=== PATIENT | female | born 1935 | race Caucasian/White ===

== ENCOUNTER → 2016-02-09 | Outpatient (CLI) | payer OTHER, BC ==
[~2016-02-09] MED LIST: ADVIN25/60 INH; ALL180 PO; ASCO500C43 PO; ASCO500C5 PO; ASPCH81X PO; ASPEC81 PO; ATOR10TA82 PO; CALC-393 PO; CALC1CHW PO; CHOL1CAP57 PO; DILT240C57 PO; DVN80 PO; FEXO1TAB49 PO; FORMCAP PO; IBAN150T PO; LEVO50TA6 PO; LIOT5TAB PO; LIOT5TAB9 PO; LPT40 PO; LTMOPS OPR; MAGNESIUM PO; POLY1DRO2 OPR; POLYSOL4 OPL; POTA-327 PO; POTA10CA28 PO; PRLSR20 PO; QVRINH80; SENN-61 PO; VALA500T39 PO; VENL75CA PO; VNTHFA/IN INH; WARF5TAB7 PO
[2016-02-09 08:32] LABS: INR 2.4 (0.9-1.1); PROTHROMBIN TIME (PATIENT) 26.9 SECONDS (9.0-12.0)
== END | disposition home or self-care (01) ==
LOC: C.LABFOXMH 08:09
PROVIDERS: ATTEND Internal Medicine
DX: Z79.01 Long term (current) use of anticoagulants (principal)

== ENCOUNTER → 2016-02-15 | Outpatient (CLI) | payer OTHER, BC ==
[~2016-02-15] MED LIST changes: -ADVIN25/60 INH; -ASCO500C43 PO; -ASPCH81X PO; -ATOR10TA82 PO; -CALC-393 PO; -CHOL1CAP57 PO; -FEXO1TAB49 PO; -LIOT5TAB PO; -MAGNESIUM PO; -POLYSOL4 OPL; -POTA10CA28 PO; -VNTHFA/IN INH
--- NOTE | 2016-02-15 12:48 | DIAGNOSTIC IMAGING REPORT ---
LEFT THIRD FINGER 3 VIEWS CLINICAL HISTORY: Foreign body. Soft tissue infection. FINDINGS: 3 views of the left third finger are obtained. No prior studies are available for comparison at the time of dictation. The skeletal structures are osteopenic. No fracture is seen. 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 Erosion is noted involving the distal interphalangeal joint. The third metacarpophalangeal joint is well-maintained. Advanced arthritic change is present at the partially imaged first carpometacarpal joint. There is mild soft tissue edema present in the distal aspect of the third finger. No radiodense foreign body or subcutaneous gas is seen. A ring is noted on the fourth finger. IMPRESSION: 1. Soft tissue edema is present in the distal third finger. No radiodense foreign body is identified. 2. No fracture is seen. 3. Osteopenia and arthritic change as above. Electronically signed by: Diego Hughes M.D. 02/15/2016 12:46 PM Dictated Date/Time: 02/15/2016 12:44 PM
== END | disposition home or self-care (01) ==
LOC: C.RAD1850 11:52
PROVIDERS: ATTEND Dermatology
DX: S60.459A Superficial foreign body of unspecified finger, initial encounter (principal); X58.XXXA Exposure to other specified factors, initial encounter; M79.9 Soft tissue disorder, unspecified; M85.842 Other specified disorders of bone density and structure, left hand; M19.042 Primary osteoarthritis, left hand

== ENCOUNTER → 2016-03-07 | Outpatient (CLI) | payer OTHER, BC ==
[2016-03-07 08:40] LABS: INR 1.8 (0.9-1.1); PROTHROMBIN TIME (PATIENT) 19.3 SECONDS (9.0-12.0)
== END | disposition home or self-care (01) ==
LOC: C.LABFOXMH 08:18
PROVIDERS: ATTEND Internal Medicine
DX: Z51.81 Encounter for therapeutic drug level monitoring (principal); Z79.01 Long term (current) use of anticoagulants

== ENCOUNTER → 2016-03-21 | Outpatient (CLI) | payer OTHER, BC ==
[2016-03-21 10:27] LABS: INR 2.5 (0.9-1.1); PROTHROMBIN TIME (PATIENT) 27.9 SECONDS (9.0-12.0)
== END | disposition home or self-care (01) ==
LOC: C.LABFOXMH 09:01
PROVIDERS: ATTEND Internal Medicine
DX: Z51.81 Encounter for therapeutic drug level monitoring (principal); Z79.01 Long term (current) use of anticoagulants

== ENCOUNTER → 2016-04-19 | Outpatient (CLI) | payer OTHER, BC ==
[2016-04-19 09:48] LABS: INR 1.8 (0.9-1.1); PROTHROMBIN TIME (PATIENT) 19.6 SECONDS (9.0-12.0)
== END | disposition home or self-care (01) ==
LOC: C.LABFOXMH 09:19
PROVIDERS: ATTEND Nurse Practitioner Family
DX: Z51.81 Encounter for therapeutic drug level monitoring (principal); Z79.01 Long term (current) use of anticoagulants

== ENCOUNTER → 2016-05-02 | Outpatient (CLI) | payer OTHER, BC ==
[2016-05-02 09:53] LABS: INR 2.9 (0.9-1.1)
== END | disposition home or self-care (01) ==
LOC: C.LABFOXMH 09:00
PROVIDERS: ATTEND Nurse Practitioner Family
DX: Z79.01 Long term (current) use of anticoagulants (principal)

== ENCOUNTER → 2016-05-16 | Outpatient (CLI) | payer OTHER, BC ==
[2016-05-16 08:29] LABS: BLOOD UREA NITROGEN 14 mg/dl (7-18); BUN/CREATININE RATIO 17.4 (10-20); CALCIUM 8.5 mg/dl (8.5-10.1); CARBON DIOXIDE 32 mmol/L (21-32); CHLORIDE 103 mmol/L (98-107); GLUCOSE 75 mg/dl (70-99); POTASSIUM 3.6 mmol/L (3.5-5.1); SODIUM 140 mmol/L (136-145)
[2016-05-16 08:32] LABS: CHOLESTEROL 190 mg/dl (0-200); HDL CHOLESTEROL 96 mg/dl; LDL CHOLESTEROL CALCULATED 87 mg/dl; TRIGLYCERIDES 37 mg/dl (0-150); VERY LOW DENSITY LIPOPROT CALC 7 mg/dl
== END | disposition home or self-care (01) ==
LOC: C.LABFOXMH 07:46
PROVIDERS: ATTEND Internal Medicine
DX: E78.00 Pure hypercholesterolemia, unspecified (principal)

== ENCOUNTER → 2016-05-30 | Outpatient (CLI) | payer OTHER, BC ==
[2016-05-30 09:45] LABS: INR 2.9 (0.9-1.1)
== END | disposition home or self-care (01) ==
LOC: C.LABFOXMH 09:08
PROVIDERS: ATTEND Internal Medicine
DX: Z51.81 Encounter for therapeutic drug level monitoring (principal); Z79.01 Long term (current) use of anticoagulants; E03.9 Hypothyroidism, unspecified

== ENCOUNTER → 2016-06-27 | Outpatient (CLI) | payer OTHER, BC ==
[2016-06-27 11:12] LABS: INR 3.5 (0.9-1.1); PROTHROMBIN TIME (PATIENT) 39.5 SECONDS (9.0-12.0)
== END | disposition home or self-care (01) ==
LOC: C.LABFOXMH 09:50
PROVIDERS: ATTEND Internal Medicine
DX: Z51.81 Encounter for therapeutic drug level monitoring (principal); Z79.01 Long term (current) use of anticoagulants; R06.00 Dyspnea, unspecified

== ENCOUNTER → 2016-07-11 | Outpatient (CLI) | payer OTHER, BC ==
[2016-07-11 08:18] LABS: INR 3.1 (0.9-1.1); PROTHROMBIN TIME (PATIENT) 34.8 SECONDS (9.0-12.0)
== END | disposition home or self-care (01) ==
LOC: C.LABFOXMH 07:54
PROVIDERS: ATTEND Internal Medicine
DX: Z79.01 Long term (current) use of anticoagulants (principal)

== ENCOUNTER → 2016-08-01 | Outpatient (CLI) | payer OTHER, BC ==
[2016-08-01 11:12] LABS: PROTHROMBIN TIME (PATIENT) 33.4 SECONDS (9.0-12.0)
== END | disposition home or self-care (01) ==
LOC: C.LABFOXMH 09:11
PROVIDERS: ATTEND Internal Medicine
DX: Z51.81 Encounter for therapeutic drug level monitoring (principal); Z79.01 Long term (current) use of anticoagulants

== ENCOUNTER → 2016-08-22 | Outpatient (CLI) | payer OTHER, BC ==
[2016-08-22 08:50] LABS: INR 2.9 (0.9-1.1); PROTHROMBIN TIME (PATIENT) 31.9 SECONDS (9.0-12.0)
== END ==
LOC: C.LABFOXMH 08:11
PROVIDERS: ATTEND Internal Medicine
DX: Z79.01 Long term (current) use of anticoagulants (principal)

== ENCOUNTER → 2016-09-04 | Outpatient (CLI) | payer OTHER, BC ==
[2016-09-04 11:15] LABS: PROTHROMBIN TIME (PATIENT) 10.7 SECONDS (9.0-12.0)
== END | disposition home or self-care (01) ==
LOC: C.LABFOXMH 10:01
PROVIDERS: ATTEND Nurse Practitioner Family
DX: Z51.81 Encounter for therapeutic drug level monitoring (principal); Z79.01 Long term (current) use of anticoagulants; L98.9 Disorder of the skin and subcutaneous tissue, unspecified

== ENCOUNTER → 2016-09-04 | Outpatient (CLI) | payer OTHER, BC | END | disposition home or self-care (01) | LOC: C.PATHSPEC 13:24 | PROVIDERS: ATTEND Plastic Surgery | DX: L98.9 Disorder of the skin and subcutaneous tissue, unspecified (principal) ==

== ENCOUNTER → 2016-09-07 | Outpatient (CLI) | payer OTHER, BC ==
[2016-09-07 09:02] LABS: INR 1.1 (0.9-1.1); PROTHROMBIN TIME (PATIENT) 12.1 SECONDS (9.0-12.0)
== END | disposition home or self-care (01) ==
LOC: C.LABFOXMH 08:30
PROVIDERS: ATTEND Nurse Practitioner Family
DX: Z51.81 Encounter for therapeutic drug level monitoring (principal); Z79.01 Long term (current) use of anticoagulants

== ENCOUNTER → 2016-09-14 | Outpatient (CLI) | payer OTHER, BC ==
[2016-09-14 09:50] LABS: PROTHROMBIN TIME (PATIENT) 21.6 SECONDS (9.0-12.0)
== END | disposition home or self-care (01) ==
LOC: C.LABFOXMH 09:07
PROVIDERS: ATTEND Nurse Practitioner Family
DX: Z51.81 Encounter for therapeutic drug level monitoring (principal); Z79.01 Long term (current) use of anticoagulants

== ENCOUNTER → 2016-09-26 | Outpatient (CLI) | payer OTHER, BC ==
[2016-09-26 10:00] LABS: INR 2.4 (0.9-1.1); PROTHROMBIN TIME (PATIENT) 26.6 SECONDS (9.0-12.0)
== END ==
LOC: C.LABFOXMH 09:16
PROVIDERS: ATTEND Nurse Practitioner Family
DX: Z79.01 Long term (current) use of anticoagulants (principal)

== ENCOUNTER → 2016-10-10 | Outpatient (CLI) | payer OTHER, BC ==
[2016-10-10 10:05] LABS: INR 2.3 (0.9-1.1); PROTHROMBIN TIME (PATIENT) 25.9 SECONDS (9.0-12.0)
== END | disposition home or self-care (01) ==
LOC: C.LABFOXMH 09:27
PROVIDERS: ATTEND Nurse Practitioner Family
DX: Z51.81 Encounter for therapeutic drug level monitoring (principal); Z79.01 Long term (current) use of anticoagulants

== ENCOUNTER → 2016-10-27 | Outpatient (CLI) | payer OTHER, BC ==
[2016-10-27 12:52] LABS: BLOOD UREA NITROGEN 15 mg/dl (7-18); BUN/CREATININE RATIO 18.8 (10-20); CALCIUM 9.2 mg/dl (8.5-10.1); CARBON DIOXIDE 28 mmol/L (21-32); CHLORIDE 106 mmol/L (98-107); CREATININE 0.82 mg/dl (0.60-1.20); GLUCOSE 80 mg/dl (70-99); POTASSIUM 4.2 mmol/L (3.5-5.1); SODIUM 141 mmol/L (136-145)
== END ==
LOC: C.LABFOXMH 12:21
PROVIDERS: ATTEND Internal Medicine
DX: I10 Essential (primary) hypertension (principal)

== ENCOUNTER → 2016-11-02 | Outpatient (CLI) | payer OTHER, BC ==
[~2016-11-02] MED LIST changes: +GADAVIST IV PRN
--- NOTE | 2016-11-02 12:48 | DIAGNOSTIC IMAGING REPORT ---
CERVICAL SPINE COMBO HISTORY: 81 years-old Female HX CERVICAL SPINE SURGERY,R HAND TRICEP WEAKNESS acute right upper and lower extremity weakness with neck pain. History of prior anterior cervical fusion. 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 Postsurgical changes are seen compatible with prior anterior fusion and discectomy at the C5-C6 and C6-C7 levels. There appears to be complete bony fusion of the vertebral bodies at this level with fusion of the left facets noted at C4-C5. No focal bone marrow edema or fracture identified. 3 mm linear area of increased T2 signal within the anterior cord at C5-C6 appears unchanged suggesting myelomalacia. Signal within the cord is otherwise within normal limits. No abnormal enhancement is identified. C2-C3: Uncovertebral spurring and moderate facet arthrosis causes mild central canal, mild right and mild to moderate left foraminal narrowing. Unchanged. C3-C4: 2 mm anterolisthesis C3 on C4, unchanged likely secondary to underlying moderate facet arthropathy. Uncovertebral spurring is noted with broad-based posterior disc bulge. There is moderate central canal and moderate bilateral foraminal stenosis redemonstrated at this level, unchanged. C4-C5: 3 mm anterolisthesis is unchanged. Mild intervertebral disc space narrowing with central posterior disc osteophyte complex and mild to moderate facet arthropathy. There is effacement of the ventral thecal sac without significant central canal narrowing. There is mild left foraminal stenosis. Right foramen is patent. Unchanged. C5-C6: Fusion at this level with posterior osteophytic spurring is again noted causing mild central canal narrowing. Foramen appear patent. No change. C6-C7: Fusion at this level with posterior osteophytic spurring causing effacement of the ventral thecal sac without significant central canal narrowing, unchanged. There is mild bilateral foraminal narrowing. C7-T1: Mild intervertebral disc space narrowing with small posterior disc ossify complex and mild facet arthropathy. No significant central canal or foraminal narrowing. Unchanged. IMPRESSION: 1. Post surgical changes of prior anterior fusion at C5-C6 and C6-C7. Focal 3 mm area of increased signal within the anterior cord at C5-C6 is unchanged suggesting mild myelomalacia. 2. Unchanged moderate central canal stenosis at C3-C4 secondary to disc disease and facet arthropathy. 3. No acute fracture, focal bone marrow edema or abnormal enhancement. 4. Additional facet arthropathy and discogenic degenerative changes as above. Unchanged from study dated 06/24/2014. 5. Remote right cerebellar hemisphere infarction with background cerebral atrophy noted. The above report was generated using voice recognition software. It may contain grammatical, syntax or spelling errors. Electronically signed by: Harry Garcia M.D. 11/02/2016 12:47 PM Dictated Date/Time: 11/02/2016 11:37 AM
== END | disposition home or self-care (01) ==
LOC: C.MRI 09:46
PROVIDERS: ATTEND Internal Medicine
DX: M62.81 Muscle weakness (generalized) (principal); Z98.890 Other specified postprocedural states; M48.02 Spinal stenosis, cervical region; M46.92 Unspecified inflammatory spondylopathy, cervical region; I63.9 Cerebral infarction, unspecified; G31.9 Degenerative disease of nervous system, unspecified

== ENCOUNTER → 2016-11-07 | Outpatient (CLI) | payer OTHER, BC ==
[~2016-11-07] MED LIST changes: -GADAVIST IV PRN
[2016-11-07 10:01] LABS: INR 2.5 (0.9-1.1); PROTHROMBIN TIME (PATIENT) 27.5 SECONDS (9.0-12.0)
== END ==
LOC: C.LABFOXMH 09:17
PROVIDERS: ATTEND Nurse Practitioner Family
DX: Z51.81 Encounter for therapeutic drug level monitoring (principal); Z79.01 Long term (current) use of anticoagulants

== ENCOUNTER → 2017-01-02 | Outpatient (CLI) | payer OTHER, BC ==
[2017-01-02 09:26] LABS: INR 3.5 (0.9-1.1); PROTHROMBIN TIME (PATIENT) 39.4 SECONDS (9.0-12.0)
== END | disposition home or self-care (01) ==
LOC: C.LABFOXMH 08:45
PROVIDERS: ATTEND Internal Medicine
DX: Z79.01 Long term (current) use of anticoagulants (principal)

== ENCOUNTER → 2017-01-08 | Outpatient (CLI) | payer OTHER, BC ==
--- NOTE | 2017-01-08 10:42 | DIAGNOSTIC IMAGING REPORT ---
MRI OF THE CHEST/BRACHIAL PLEXUS WITHOUT CONTRAST CLINICAL HISTORY: Right arm pain and weakness, attention brachial plexus. COMPARISON STUDY: MRI of the cervical spine November 02, 2016. TECHNIQUE: Utilizing a 1.5 Ginger magnet, multiplanar, multiecho imaging through the lower neck and mid to upper chest was performed without IV contrast. FINDINGS: Postoperative findings within the cervical spine consistent with C5-C6 and C6-C7 anterior discectomies and fusion are better depicted on MRI of November 02, 2016. Reversal of the normal cervical lordosis is unchanged. No suspicious marrow replacement is present. This exam is mildly compromised given lack of postcontrast imaging. However, no mass or other abnormalities are identified along the course of the right brachial plexus. There is no upper thoracic or lower cervical mass or enlarged lymph node. Lung apices are unremarkable by MRI. There is no cervical lymphadenopathy. IMPRESSION: 1. No mass or other abnormality along the course of the right brachial plexus on unenhanced MRI. 2. Status post C5-C6 and C6-C7 anterior cervical spine discectomy and fusion. Postoperative findings better depicted on MRI of November 02, 2016. Electronically signed by: Deepak Urias M.D. 01/08/2017 10:41 AM Dictated Date/Time: 01/08/2017 10:34 AM
== END | disposition home or self-care (01) ==
LOC: C.MRI 08:51
PROVIDERS: ATTEND Internal Medicine
DX: M62.81 Muscle weakness (generalized) (principal); M79.621 Pain in right upper arm; M43.22 Fusion of spine, cervical region

== ENCOUNTER → 2017-01-12 | Outpatient (CLI) | payer OTHER, BC ==
[~2017-01-12] MED LIST changes: +ADVIN25/60 INH; +ASCO500C43 PO; +ASPCH81X PO; +ATOR10TA82 PO; +CALC-393 PO; +CHOL1CAP57 PO; +FEXO1TAB49 PO; +LIOT5TAB PO; +MAGNESIUM PO; +POLYSOL4 OPL; +POTA10CA28 PO; +VNTHFA/IN INH
[2017-01-12 10:00] LABS: MEAN CORPUSCULAR HEMOGLOBIN 29.5 pg (25-34); MEAN CORPUSCULAR HGB CONC 33.1 g/dl (32-36); MEAN PLATELET VOLUME 11.5 fL (7.4-10.4); PLATELET COUNT 249 K/uL (130-400); RED BLOOD COUNT 4.38 M/uL (4.2-5.4); WHITE BLOOD COUNT 6.08 K/uL (4.8-10.8)
[2017-01-12 10:06] LABS: INR 2.5 (0.9-1.1); PROTHROMBIN TIME (PATIENT) 25.5 SECONDS (9.0-12.0)
[2017-01-12 10:10] LABS: ALT/SGPT 36 U/L (12-78); BLOOD UREA NITROGEN 18 mg/dl (7-18); BUN/CREATININE RATIO 18.9 (10-20); CALCIUM 8.9 mg/dl (8.5-10.1); CARBON DIOXIDE 28 mmol/L (21-32); CHLORIDE 103 mmol/L (98-107); CREATININE 0.97 mg/dl (0.60-1.20); GLUCOSE 106 mg/dl (70-99); POTASSIUM 3.6 mmol/L (3.5-5.1); SODIUM 138 mmol/L (136-145)
[2017-01-12 10:20] LABS: ALB/GLOB RATIO 1.1 (0.9-2); ALKALINE PHOSPHATASE 148 U/L (45-117); AST/SGOT 28 U/L (15-37)
== END | disposition home or self-care (01) ==
LOC: C.LABFOXMH 09:34
PROVIDERS: ATTEND Internal Medicine
DX: R63.4 Abnormal weight loss (principal)

== ENCOUNTER → 2017-01-16 | Outpatient (CLI) | payer OTHER, BC ==
[2017-01-16 08:35] LABS: INR 2.2 (0.9-1.1); PROTHROMBIN TIME (PATIENT) 22.5 SECONDS (9.0-12.0)
== END | disposition home or self-care (01) ==
LOC: C.LABFOXMH 07:47
PROVIDERS: ATTEND Internal Medicine
DX: Z79.01 Long term (current) use of anticoagulants (principal)

== ENCOUNTER → 2017-01-22 | Day surgery (SDC) | payer OTHER, BC ==
[2017-01-16 12:08] VITALS: BMI 16.0
[~2017-01-22] VITALS: Ht 160 cm; Wt 42.3 kg
[~2017-01-22] MED LIST changes: -ALL180 PO; -ASCO500C5 PO; -ASPEC81 PO; -CALC1CHW PO; -DVN80 PO; -FORMCAP PO; -IBAN150T PO; +LIDOCAINE HCL 2% 2 ML VIAL (20MG/ML) ONE; -LIOT5TAB9 PO; -LPT40 PO; +ONDANSETRON INJ 2 MG/ML 2 ML VIAL ONE; -POLY1DRO2 OPR; -POTA-327 PO; +PROPOFOL IV EMULSION 10 MG/ML 20 ML VIAL IV ONE; -QVRINH80; +SODIUM CHLORIDE 0.9% 500ML 500 ML IV ONE
[2017-01-22 08:01] VITALS: Ht 160 cm; Wt 42.3 kg
--- NOTE | 2017-01-22 08:17 | Endo History and Physical ---
History & Physical Date of Service: Jan 22, 2017. Chief Complaint: Referring Physician: History of Present Illness patient with Hx of dysphagia here for EGD. Past Medical History Asthma, Thyroid Disease, CVA/TIA, Other Past Surgical History Hx Cardiac Surgery: No Hx Internal Defibrillator: No Hx Pacemaker: No Hx Abdominal Surgery: No Hx of Implantable Prosthesis: No Hx Post-Op Nausea and Vomiting: No Hx Cancer Surgery: No Hx Thoracic Surgery: No Hx Orthopedic: Yes (CERVICAL FUSION) Hx Urinary Tract Surgery: No Family History Colon CA Social History Smoking Status: Never Smoker Hx Substance Use: No Hx Alcohol Use: No Allergies Coded Allergies: Codeine (Verified Allergy, Unknown, VOMITTING COFFEE GROUNDS, 01/22/17) Penicillins (Verified Allergy, Unknown, RASH, 01/22/17) Sulfa Antibiotics (Verified Allergy, Unknown, RASH, 01/22/17) Current Medications Reported Home Medications Medications Dose Route/Sig Max Daily Dose Days Date Category Dose Instructions Systane (Polyethylene Glycol-Propylene) 1 Lee Ann Lee Ann 1 Drops OPL HS 01/16/17 Reported Prilosec (Omeprazole) 20 Mg Capcr 20 Mg PO BID 01/16/17 Reported [Magnesium] 235 Mg PO QAM 01/16/17 Reported Vitamin C 500 mg (Ascorbic Acid) 1 Chw Chw 1 Dose PO QAM 01/16/17 Reported Calcium (Calcium Carbonate) 600 Mg Tab 1 Tab PO QAM 01/16/17 Reported Vitamin D3 (Cholecalciferol) 1,000 Unit Cap 1 Cap PO QAM 01/16/17 Reported Micro-K Ext Rel (Potassium Chloride) 10 Meq Capcr 10 Meq PO QAM 01/16/17 Reported Lipitor (Atorvastatin Calcium) 10 Mg Tab 10 Mg PO QAM 01/16/17 Reported Aspirin Chewable (Aspirin) 81 Mg Chew 81 Mg PO Q2D 01/16/17 Reported Trixie Allergy (Fexofenadine Hcl) 180 Mg Tab 1 Tab PO QAM 01/16/17 Reported Ventolin Hfa (Albuterol) 200 Puffs/40108 Mcg Aers 2-4 Puffs INH Q6H PRN 01/16/17 Reported Advair Diskus 250/50 60 Dose (Fluticasone Prop/Salmeterol) 1 Ea Aerp 1 Puff INH BID 01/16/17 Reported Cytomel (Liothyronine Sodium) 5 Mcg Tab 5 Mcg PO QAM 01/16/17 Reported Levothyroxine Sodium 50 Mcg Tab 1 Tab PO 6XWK 01/16/17 Reported Cardizem Cd (Diltiazem Hcl Coated Beads) 240 Mg Cap 240 Mg PO QAM 01/16/17 Reported Jantoven (Warfarin Sodium) 5 Mg Tab 5 Mg PO QPM 01/23/15 Reported Lotemax (Loteprednol Etabonate) 75 Drops/5 Ml Susp 1 Drop OPR HS 06/25/14 Reported Senokot (Senna) 8.6 Mg Tab 1 Tab PO QPM 06/25/14 Reported Effexor Xr (Venlafaxine Hcl) 75 Mg Cap 75 Mg PO QAM 06/25/14 Reported Valtrex (Valacyclovir Hcl) 500 Mg Tab 500 Mg PO QAM 06/25/14 Reported NO ACTIVE SHINGLES CURRENTLY Vital Signs Weight (Kilograms): 42.27 Height (Feet): 5 Height (Inches): 3 Physical Exam General Appearance: no apparent distress Respiratory/Chest: Auscultation: breath sounds normal Cardiovascular: Heart Auscultation: RRR Abdomen: Inspection & Palpation: soft, non-distended Assessment and Plan Patient agreed for EGD with possible dilation. I explained the risk and benefit and she consented. She stopped Coumadin and was bridged with Lovenox.
[2017-01-22 08:21] VITALS: TEMP 36.5
--- NOTE | 2017-01-22 09:07 | GI REPORT ---
Procedure Date: 01/22/2017 8:31 AM Procedure: Upper GI endoscopy Indications: Dysphagia Medicines: Monitored Anesthesia Care Complications: No immediate complications. Estimated Blood Loss: Estimated blood loss: none. Procedure: Pre-Anesthesia Assessment: - Prior to the procedure, a History and Physical was performed, and patient medications and allergies were reviewed. The patient is competent. The risks and benefits of the procedure and the sedation options and risks were discussed with the patient. All questions were answered and informed consent was obtained. Patient identification and proposed procedure were verified by the physician and the nurse in the procedure room. Mental Status Examination: alert and oriented. Airway Examination: normal oropharyngeal airway and neck mobility. Respiratory Examination: clear to auscultation. CV Examination: normal. ASA Grade Assessment: III - A patient with severe systemic disease. After reviewing the risks and benefits, the patient was deemed in satisfactory condition to undergo the procedure. The anesthesia plan was to use monitored anesthesia care (MAC). Immediately prior to administration of medications, the patient was re-assessed for adequacy to receive sedatives. The heart rate, respiratory rate, oxygen saturations, blood pressure, adequacy of pulmonary ventilation, and response to care were monitored throughout the procedure. The physical status of the patient was re-assessed after the procedure. After obtaining informed consent, the endoscope was passed under direct vision. Throughout the procedure, the patient's blood pressure, pulse, and oxygen saturations were monitored continuously. The scope was introduced through the mouth, and advanced to the second part of duodenum. The upper GI endoscopy was accomplished without difficulty. The patient tolerated the procedure well. 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 The examined esophagus was otherwise normal. A guidewire was placed and the scope was withdrawn. Dilation was performed with a Savary dilator with minimal resistance at 15 mm, 16 mm, 17 mm and 18 mm. The entire examined stomach had no gross lesions. The duodenal bulb and 2nd part of the duodenum were normal. Impression: - Ectopic gastric mucosa in the upper third of the esophagus. - Normal esophagus. Dilated to 18 mm (54 Fr). - Normal stomach. - Normal duodenal bulb and 2nd part of the duodenum. - No specimens collected. Recommendation: - Discharge patient to home. - Continue present medications. - Resume Coumadin (warfarin) at prior dose today. - Follow an antireflux regimen. - Continue PPI as needed. - Consider esophageal manometry if dysphagia persists. - Return to referring physician. Cecil Oviedo MD 01/22/2017 9:07:03 AM This report has been signed electronically. Note Initiated On: 01/22/2017 8:31 AM I attest to the content of the Intraoperative Record and orders documented therein, exceptions below
--- NOTE | 2017-01-22 09:09 | Discharge Instructions ---
Endoscopy Patient Instructions Date / Procedure(s) Performed Jan 22, 2017. EGD Allergy Information Coded Allergies: Codeine (Verified Allergy, Unknown, VOMITTING COFFEE GROUNDS, 01/22/17) Penicillins (Verified Allergy, Unknown, RASH, 01/22/17) Sulfa Antibiotics (Verified Allergy, Unknown, RASH, 01/22/17) Discharge Date / Findings Jan 22, 2017. Normal esophagus, stomach and duodenum. Esophageal dilation performed up to 18mm. Medication Instructions Stopped Medication(s): STOPPED COUMADIN AND ASA. BRIDGED WITH LOVENOX Restart Stopped Medication(s): Can resume Coumadin tonight. Follow up in Coumadin clinic. Reported Home Medications Medications Dose Route/Sig Max Daily Dose Days Date Category Systane (Polyethylene Glycol-Propylene) 1 Lee Ann Lee Ann 1 Drops OPL HS 01/16/17 Reported Prilosec (Omeprazole) 20 Mg Capcr 20 Mg PO BID 01/16/17 Reported [Magnesium] 235 Mg PO QAM 01/16/17 Reported Vitamin C 500 mg (Ascorbic Acid) 1 Chw Chw 1 Dose PO QAM 01/16/17 Reported Calcium (Calcium Carbonate) 600 Mg Tab 1 Tab PO QAM 01/16/17 Reported Vitamin D3 (Cholecalciferol) 1,000 Unit Cap 1 Cap PO QAM 01/16/17 Reported Micro-K Ext Rel (Potassium Chloride) 10 Meq Capcr 10 Meq PO QAM 01/16/17 Reported Lipitor (Atorvastatin Calcium) 10 Mg Tab 10 Mg PO QAM 01/16/17 Reported Aspirin Chewable (Aspirin) 81 Mg Chew 81 Mg PO Q2D 01/16/17 Reported Trixie Allergy (Fexofenadine Hcl) 180 Mg Tab 1 Tab PO QAM 01/16/17 Reported Ventolin Hfa (Albuterol) 200 Puffs/15636 Mcg Aers 2-4 Puffs INH Q6H PRN 01/16/17 Reported Advair Diskus 250/50 60 Dose (Fluticasone Prop/Salmeterol) 1 Ea Aerp 1 Puff INH BID 01/16/17 Reported Cytomel (Liothyronine Sodium) 5 Mcg Tab 5 Mcg PO QAM 01/16/17 Reported Levothyroxine Sodium 50 Mcg Tab 1 Tab PO 6XWK 01/16/17 Reported Cardizem Cd (Diltiazem Hcl Coated Beads) 240 Mg Cap 240 Mg PO QAM 01/16/17 Reported Jantoven (Warfarin Sodium) 5 Mg Tab 5 Mg PO QPM 01/23/15 Reported Lotemax (Loteprednol Etabonate) 75 Drops/5 Ml Susp 1 Drop OPR HS 06/25/14 Reported Senokot (Senna) 8.6 Mg Tab 1 Tab PO QPM 06/25/14 Reported Effexor Xr (Venlafaxine Hcl) 75 Mg Cap 75 Mg PO QAM 06/25/14 Reported Provider Instructions Activity Restrictions - No exercising or heavy lifting for 24 hours. - Do not drink alcohol the day of the procedure. - Do not drive a car or operate machinery until the day after the procedure. - Do not make any important decisions or sign important papers in 24 hours after the procedure. Following Day: - Return to full activity which may include returning to work/school. Diet Start your diet with liquids and light foods (jello, soup, juice, toast). Then eat your usual diet if not nauseated. Treatment For Common After Affects For mild abdominal pain, bloating, or excessive gas: - Rest - Eat lightly - Lie on right side Follow-Up Information Continue PPI. Antireflux measures. Follow-up with DR. GILLIAM as scheduled Anesthesia Information What You Should Know You have had a procedure that required some medicine to reduce anxiety and discomfort. This treatment is called moderate sedation. After receiving the treatment, you may be sleepy, but you will be able to breathe on your own. The effects of the treatment may last for several hours. Follow these instructions along with Activity/Diet recommendations noted above: * Do NOT do anything where dizziness or clumsiness would be dangerous. * Rest quietly at home today, then you can be up and about tomorrow. * Have a responsible person stay with you the rest of today. * You may have had an I.V. today. If so, you may take the dressing off later today. Recommendations Call your doctor if: * Trouble breathing * Continuous vomiting for more than 24 hours * Temperature above 101 degrees * Severe abdominal pain or bloating * Pain not relieved by pain medicine ordered * There is increased drainage or redness from any incision * A large amount of rectal bleeding greater than 2-3 tablespoons. (If you had a polyp/s removed or have hemorrhoids, a small amount of blood - from the rectum is to be expected.) * You have any unanswered questions or concerns. IN THE EVENT OF A SERIOUS EMERGENCY, GO TO THE NEAREST EMERGENCY ROOM Your discharge instructions were prepared by provider Cecil Oviedo. Patient Instructions Signature Page Ellie Siddiqui Patient (or Guardian) Signature/Date: I have read and understand the instructions given to me by my caregivers. Caregiver/RN/Doctor Signature/Date: The above-named patient and/or guardian has received patient instructions on this date. + Original Patient Signature Page (only) stays with chart. Please make copy for patient.
--- NOTE | 2017-01-22 09:32 | Anesthesiology Progress Note ---
Anesthesia Post Op Note Date & Time Jan 22, 2017 at 09:32 Vital Signs Pain Intensity: 0 Vital Signs Past 12 Hours Date Time Temp Pulse Resp B/P (MAP) Pulse Ox O2 Delivery O2 Flow Rate FiO2 01/22/17 09:18 63 18 161/65 (97) 99 Room Air 01/22/17 09:03 70 16 174/69 (104) 98 Room Air 01/22/17 08:21 36.5 58 18 149/61 (90) 100 Room Air Notes Mental Status: alert / awake / arousable, participated in evaluation Pt Amnestic to Procedure: Yes Nausea / Vomiting: adequately controlled Pain: adequately controlled Airway Patency, RR, SpO2: stable & adequate BP & HR: stable & adequate Hydration State: stable & adequate Anesthetic Complications: no major complications apparent
[2017-01-22 09:33] VITALS: BP 154/75; PULSE 60; O2SAT 100
== END | disposition home or self-care (01) ==
LOC: C.GI 07:43
PROVIDERS: ATTEND Student in an Organized Health Care Education/Training Program
DX: R13.10 Dysphagia, unspecified (principal); J44.9 Chronic obstructive pulmonary disease, unspecified; I10 Essential (primary) hypertension; E78.5 Hyperlipidemia, unspecified; I48.91 Unspecified atrial fibrillation; K21.9 Gastro-esophageal reflux disease without esophagitis; M19.90 Unspecified osteoarthritis, unspecified site; R39.15 Urgency of urination; Z80.0 Family history of malignant neoplasm of digestive organs; Z79.82 Long term (current) use of aspirin; Z88.2 Allergy status to sulfonamides; Z86.73 Personal history of transient ischemic attack (TIA), and cerebral infarction without residual deficits; Z88.0 Allergy status to penicillin

== ENCOUNTER → 2017-01-26 | Outpatient (CLI) | payer OTHER, BC ==
[~2017-01-26] MED LIST changes: -LIDOCAINE HCL 2% 2 ML VIAL (20MG/ML) ONE; -ONDANSETRON INJ 2 MG/ML 2 ML VIAL ONE; -PROPOFOL IV EMULSION 10 MG/ML 20 ML VIAL IV ONE; -SODIUM CHLORIDE 0.9% 500ML 500 ML IV ONE
[2017-01-26 09:04] LABS: INR 1.9 (0.9-1.1); PROTHROMBIN TIME (PATIENT) 19.4 SECONDS (9.0-12.0)
[2017-02-01 02:43] LABS: ALK PHOS ISO-INTESTINE 18 % (1-24); ALK PHOS ISO-LIVER 55 % (25-69); ALK PHOS ISO-PLACENTAL 0 % (<=0); ALK PHOS MACROHEPATIC 0 % (<=0); ALP (ALK P'TASE) 112 U/L (33-130)
== END | disposition home or self-care (01) ==
LOC: C.LABFOXMH 08:19
PROVIDERS: ATTEND Internal Medicine
DX: Z79.01 Long term (current) use of anticoagulants (principal); R94.5 Abnormal results of liver function studies

== ENCOUNTER → 2017-02-06 | Outpatient (CLI) | payer OTHER, BC ==
[~2017-02-06] MED LIST changes: -VALA500T39 PO; -VENL75CA PO; +VENL75CA88 PO
[2017-02-06 09:17] LABS: INR 1.8 (0.9-1.1)
== END | disposition home or self-care (01) ==
LOC: C.LABFOXMH 08:49
PROVIDERS: ATTEND Nurse Practitioner Family
DX: Z79.01 Long term (current) use of anticoagulants (principal)

== ENCOUNTER → 2017-02-09 | Outpatient (CLI) | payer OTHER, BC ==
[2017-02-09 12:21] LABS: INFLUENZA B ANTIGEN Neg for Influ B (NEG)
== END ==
LOC: C.LABFOXMH 11:35
PROVIDERS: ATTEND Nurse Practitioner Family
DX: R05 Cough (principal)

== ENCOUNTER → 2017-02-22 | Outpatient (CLI) | payer OTHER, BC ==
[~2017-02-22] MED LIST changes: +VENL75CA PO; -VENL75CA88 PO
== END | disposition home or self-care (01) ==
LOC: C.PATHSPEC 17:22
PROVIDERS: ATTEND Physician Assistant
DX: C44.91 Basal cell carcinoma of skin, unspecified (principal); L57.0 Actinic keratosis

== ENCOUNTER → 2017-02-27 | Outpatient (CLI) | payer OTHER, BC ==
[2017-02-27 08:50] LABS: ALT/SGPT 35 U/L (12-78); BLOOD UREA NITROGEN 17 mg/dl (7-18); CARBON DIOXIDE 29 mmol/L (21-32); CHOLESTEROL 154 mg/dl (0-200); CREATININE 0.71 mg/dl (0.60-1.20); GLUCOSE 85 mg/dl (70-99); SODIUM 140 mmol/L (136-145)
[2017-02-27 08:53] LABS: ALKALINE PHOSPHATASE 136 U/L (45-117); AST/SGOT 32 U/L (15-37); INR 2.6 (0.9-1.1); LDL CHOLESTEROL CALCULATED 70 mg/dl; TOTAL PROTEIN 6.2 gm/dl (6.4-8.2)
== END | disposition home or self-care (01) ==
LOC: C.LABFOXMH 08:23
PROVIDERS: ATTEND Internal Medicine
DX: Z51.81 Encounter for therapeutic drug level monitoring (principal); Z79.01 Long term (current) use of anticoagulants; E78.5 Hyperlipidemia, unspecified

== ENCOUNTER → 2017-03-20 | Outpatient (CLI) | payer OTHER, BC | END | disposition home or self-care (01) | LOC: C.LABFOXMH 08:42 | PROVIDERS: ATTEND Internal Medicine | DX: Z79.01 Long term (current) use of anticoagulants (principal) ==

== ENCOUNTER → 2017-03-27 | Outpatient (CLI) | payer OTHER, BC ==
[2017-03-27 11:26] LABS: INFLUENZA B PCR Neg for Influ B (NEG)
[2017-03-27 11:28] LABS: INFLUENZA A PCR Neg for Influ A (NEG)
== END | disposition home or self-care (01) ==
LOC: C.LABFOXMH 09:57
PROVIDERS: ATTEND Internal Medicine
DX: R05 Cough (principal)

== ENCOUNTER → 2017-03-29 | Outpatient (CLI) | payer OTHER, BC ==
[2017-03-29 08:32] LABS: INR 3.5 (0.9-1.1)
== END | disposition home or self-care (01) ==
LOC: C.LABFOXMH 07:47
PROVIDERS: ATTEND Internal Medicine
DX: Z51.81 Encounter for therapeutic drug level monitoring (principal); Z79.01 Long term (current) use of anticoagulants

== ENCOUNTER → 2017-04-19 | Outpatient (CLI) | payer OTHER, BC | END | disposition home or self-care (01) | LOC: C.LABFOXMH 08:57 | PROVIDERS: ATTEND Internal Medicine | DX: Z51.81 Encounter for therapeutic drug level monitoring (principal); Z79.01 Long term (current) use of anticoagulants ==

== ENCOUNTER → 2017-04-24 | Outpatient (CLI) | payer OTHER, BC ==
[2017-04-24 08:08] LABS: HEMATOCRIT 34.3 % (37-47); HEMOGLOBIN 11.2 g/dL (12.0-16.0); MEAN CELL VOLUME 85.8 fL (80-100); MEAN CORPUSCULAR HGB CONC 32.7 g/dl (32-36); MEAN PLATELET VOLUME 10.4 fL (7.4-10.4); PLATELET COUNT 250 K/uL (130-400); RED CELL DISTRIBUTION WIDTH CV 15.9 % (11.5-14.5); RED CELL DISTRIBUTION WIDTH SD 49.3 fL (36.4-46.3); WHITE BLOOD COUNT 6.41 K/uL (4.8-10.8)
[2017-04-24 08:17] LABS: ALBUMIN 3.2 gm/dl (3.4-5.0); ALT/SGPT 32 U/L (12-78); BLOOD UREA NITROGEN 18 mg/dl (7-18); CREATININE 0.92 mg/dl (0.60-1.20)
[2017-04-24 08:20] LABS: ALKALINE PHOSPHATASE 148 U/L (45-117); AST/SGOT 29 U/L (15-37); TOTAL PROTEIN 6.7 gm/dl (6.4-8.2)
== END ==
LOC: C.LABFOXMH 07:54
PROVIDERS: ATTEND Internal Medicine
DX: L95.9 Vasculitis limited to the skin, unspecified (principal)

== ENCOUNTER → 2017-05-01 | Outpatient (CLI) | payer OTHER, BC ==
[2017-05-01 13:21] LABS: HEMATOCRIT 35.9 % (37-47); HEMOGLOBIN 12.1 g/dL (12.0-16.0); MEAN CELL VOLUME 83.9 fL (80-100); MEAN CORPUSCULAR HEMOGLOBIN 28.3 pg (25-34); MEAN CORPUSCULAR HGB CONC 33.7 g/dl (32-36); MEAN PLATELET VOLUME 10.1 fL (7.4-10.4); PLATELET COUNT 420 K/uL (130-400); RED CELL DISTRIBUTION WIDTH CV 16.2 % (11.5-14.5); RED CELL DISTRIBUTION WIDTH SD 48.7 fL (36.4-46.3); WHITE BLOOD COUNT 10.67 K/uL (4.8-10.8)
[2017-05-01 14:01] LABS: ALBUMIN 3.6 gm/dl (3.4-5.0); TOTAL PROTEIN 6.9 gm/dl (6.4-8.2)
[2017-05-05 13:32] LABS: ANA SCREEN TC 249X NEGATIVE (NEGATIVE)
== END | disposition home or self-care (01) ==
LOC: C.LAB 11:44
PROVIDERS: ATTEND Internal Medicine
DX: D50.9 Iron deficiency anemia, unspecified (principal); R94.5 Abnormal results of liver function studies

== ENCOUNTER → 2017-05-14 | Outpatient (CLI) | payer OTHER, BC ==
[2017-05-14 08:17] LABS: INR 1.3 (0.9-1.1)
== END | disposition home or self-care (01) ==
LOC: C.LABFOXMH 07:51
PROVIDERS: ATTEND Internal Medicine
DX: Z79.01 Long term (current) use of anticoagulants (principal)

== ENCOUNTER → 2017-05-28 | Outpatient (CLI) | payer OTHER, BC ==
[2017-05-28 08:34] LABS: INR 2.3 (0.9-1.1)
== END | disposition home or self-care (01) ==
LOC: C.LABFOXMH 08:09
PROVIDERS: ATTEND Internal Medicine
DX: Z15.81 Genetic susceptibility to multiple endocrine neoplasia [MEN] (principal); Z79.01 Long term (current) use of anticoagulants

== ENCOUNTER → 2017-05-30 | Outpatient (CLI) | payer OTHER, BC ==
[2017-05-30 08:01] LABS: INR 2.3 (0.9-1.1)
== END | disposition home or self-care (01) ==
LOC: C.LABFOXMH 07:46
PROVIDERS: ATTEND Dentist Oral and Maxillofacial Surgery
DX: Z51.81 Encounter for therapeutic drug level monitoring (principal); Z79.01 Long term (current) use of anticoagulants; K12.2 Cellulitis and abscess of mouth; K04.7 Periapical abscess without sinus

== ENCOUNTER → 2017-06-19 | Outpatient (CLI) | payer OTHER, BC ==
[2017-06-19 09:38] LABS: INR 1.7 (0.9-1.1)
== END | disposition home or self-care (01) ==
LOC: C.LABFOXMH 08:29
PROVIDERS: ATTEND Internal Medicine
DX: Z79.01 Long term (current) use of anticoagulants (principal)

== ENCOUNTER → 2017-06-21 | Outpatient (CLI) | payer OTHER, BC ==
--- NOTE | 2017-06-21 11:20 | DIAGNOSTIC IMAGING REPORT ---
SMALL BOWEL STUDY CLINICAL HISTORY: ANEMIA COMPARISON STUDY: CT scan dated 12/14/2015 FLUOROSCOPY TIME: 36 seconds. NUMBER OF FLUOROSCOPIC IMAGES: 10 FINDINGS: The patient was administered Enterovue and a small bowel follow-through was performed. Contrast reached the cecum within one hour. There are no abnormally dilated loops of large or small bowel. There is no evidence for abnormal loop separation. No intrinsic small bowel abnormalities are visualized. The terminal ileum appeared normal. IMPRESSION: Normal study Electronically signed by: Mitchell Beth M.D. 06/21/2017 11:19 AM Dictated Date/Time: 06/21/2017 11:18 AM
== END | disposition home or self-care (01) ==
LOC: C.RAD 08:27
PROVIDERS: ATTEND Student in an Organized Health Care Education/Training Program
DX: D64.9 Anemia, unspecified (principal)

== ENCOUNTER → 2017-09-11 | Outpatient (CLI) | payer OTHER, BC ==
[~2017-09-11] MED LIST changes: -VENL75CA PO; +VENL75CA88 PO
[2017-09-11 10:57] LABS: INR 1.5 (0.9-1.1)
== END ==
LOC: C.LABFOXMH 08:25
PROVIDERS: ATTEND Internal Medicine
DX: Z79.01 Long term (current) use of anticoagulants (principal)

== ENCOUNTER → 2017-09-25 | Outpatient (CLI) | payer OTHER, BC ==
[2017-09-25 09:30] LABS: INR 3.4 (0.9-1.1)
== END | disposition home or self-care (01) ==
LOC: C.LABFOXMH 08:31
PROVIDERS: ATTEND Internal Medicine
DX: Z79.01 Long term (current) use of anticoagulants (principal)

== ENCOUNTER 2019-02-13 11:41 | Inpatient (IN) ==
--- NOTE | 2019-02-13 12:32 | Emergency Department Note ---
Entered by Jenny Brady acting as a scribe for History of Present Illness General Chief complaint: Cardiac Assessment Stated complaint: SLOW HEART RATE AV BLOCK Time Seen by Provider: 02/13/19 12:06 Source: patient Limitations: no limitations History of Present Illness Provider complaint: Weakness and shortness of breath Onset (ago): day(s) 1 Location: chest Pain Consistency: + constant Quality: + constant Exacerbated By: + other (laying down ) Associated symptoms: + shortness of breath and + weakness The patient is an 83 year old female with past medical history of hemifacial spasm, TIA, headache, right carotid bruit, who presents to the ED with complaints of constant weakness that started last night. The patient reports she felt weak last night and her muscles were not as strong. She notes her shortness of breath is worsening with laying down. The patient states she went to her PCP today for a follow up and was referred here for slow heart rate. . Home Medications Home Medications Medication Instructions Recorded Confirmed Type Lotemax 1 drp OPR HS 06/19/18 12/26/18 History PreserVision AREDS 1 tab PO BID 06/19/18 12/26/18 History albuterol sulfate [ProAir HFA] 2 puff INHALATION QID PRN 06/19/18 12/26/18 History cholecalciferol (vitamin D3) 1,000 unit PO DAILY 06/19/18 12/26/18 History [Vitamin D3] diltiazem HCl [Cardizem CD] 240 mg PO QAM 06/19/18 12/26/18 History fexofenadine [Trixie Allergy] 180 mg PO DAILY PRN 06/19/18 12/26/18 History fluticasone propion-salmeterol 1 inh INHALATION Q12H 06/19/18 12/26/18 History [Advair Diskus] levothyroxine 50 mcg PO QAM 06/19/18 12/26/18 History liothyronine 5 mcg PO QAM 06/19/18 12/26/18 History omeprazole 20 mg PO QAM 06/19/18 12/26/18 History potassium chloride 10 meq PO QAM 06/19/18 12/26/18 History valacyclovir 500 mg PO QAM 06/19/18 12/26/18 History warfarin [Coumadin] 4 mg PO UD 06/19/18 12/26/18 History venlafaxine 37.5 mg 37.5 mg PO DAILY 12/26/18 12/26/18 History capsule,extended release 24 hr Allergies Allergy/AdvReac Type Severity Reaction Status Date / Time codeine Allergy Intermediate VOMITTING Verified 02/13/19 14:37 COFFEE GROUNDS latex Allergy Mild Rash Verified 02/13/19 14:37 Penicillins Allergy Mild RASH Verified 02/13/19 14:37 Sulfa (Sulfonamide Allergy Mild RASH Verified 02/13/19 14:37 Antibiotics) Past Med/Surg History Medical History Anemia HX OF Asthma HAS NOT USED RESCUE INHALER FOR A LONG TIME Atrial fibrillation Cardiac murmur Degenerative disc disease Depression GERD (gastroesophageal reflux disease) Gout Hypertension Hypothyroidism Macular degeneration Osteoarthritis Shingles IN EYE (REASON FOR VALACYCLOVIR) Stroke JANUARY 2009 Vocal cord anomaly "LIES FLAT" Surgical History History of adenoidectomy History of cardiac cath 2 YEARS AGO (NO STENTS) History of cataract surgery RT/LEFT History of cervical discectomy History of colonoscopy History of dilatation and curettage History of endoscopic sinus surgery POLYPS REMOVED History of esophagogastroduodenoscopy (EGD) History of tonsillectomy History of tooth extraction Family History Grandmother (Paternal) Family hx of colon cancer Social History Preferred Language: Turkmen Communication Ability: Effective Rope Tow Operator Required: No Beliefs That Will Affect Care: None Current Living Situation: Spouse Current Living Situation Comment: AT [facility] Feels Safe at Home: Yes Smoking Status: Never smoker Second Hand Exposure: Yes ( A CHILD) ; Hx Alcohol Use: No Hx Substance Use: No Review of Systems See HPI for pertinent positives & negatives. and A total of 10 systems reviewed and were otherwise negative Physical Exam Vital Signs Vital Signs - 24 hr 02/13/19 11:43 02/13/19 12:08 02/13/19 12:30 Temperature Source Oral Pulse Rate 44 L 45 L 45 L Pulse Rate from SpO2 Sensor 45 L Respiratory Rate 20 19 17 Respiratory Effort / Characteristics Non-Labored Spontaneous Respiratory Depth Normal Blood Pressure 154/71 H 159/79 H 142/58 H Blood Pressure Mean 98 93 78 Pulse Oximetry 100 99 Oxygen Delivery Method Sepsis Recent Fever Within 48 Hours No Sepsis Action Taken by Nursing No Action Required 02/13/19 12:36 02/13/19 13:00 02/13/19 13:01 Temperature Source Pulse Rate 46 L 45 L Pulse Rate from SpO2 Sensor 46 L 45 L Respiratory Rate 17 14 Respiratory Effort / Characteristics Respiratory Depth Blood Pressure 147/60 H Blood Pressure Mean 91 Pulse Oximetry 99 99 100 Oxygen Delivery Method Room Air Room Air Room Air Sepsis Recent Fever Within 48 Hours Sepsis Action Taken by Nursing 02/13/19 13:30 Temperature Source Pulse Rate 43 L Pulse Rate from SpO2 Sensor 44 L Respiratory Rate 13 Respiratory Effort / Characteristics Respiratory Depth Blood Pressure 165/56 H Blood Pressure Mean 95 Pulse Oximetry 99 Oxygen Delivery Method Room Air Sepsis Recent Fever Within 48 Hours Sepsis Action Taken by Nursing CONSTITUTIONAL/VITAL SIGNS: Reviewed / noted above. GENERAL: Non-toxic in appearance. INTEGUMENTARY: Warm, dry, and [place]. HEAD: Normocephalic. EYES: without scleral icterus or trauma. ENT/OROPHARYNX: clear and moist. LYMPHADENOPATHY/NECK: Is supple without lymphadenopathy or meningismus. RESPIRATORY: Lungs clear and equal. CARDIOVASCULAR: Bradycardic rate and regular rhythm. GI/ABDOMEN: Soft and nontender. No organomegaly or pulsatile mass. No rebound or guarding. Normal bowel sounds. EXTREMITIES: Warm and well perfused. BACK: No CVA tenderness. NEUROLOGICAL: Intact without focal deficits. PSYCHIATRIC: normal affect. MUSCULOSKELETAL: Normally developed with good muscle tone. Course Course 1207: The patient was evaluated in room C3. A complete history and physical exam was performed. 1222: I discussed the patients case with Dr. Merino, Cardiology. 1238: I discussed the patients case with Dr. Larios, [facility] Hospitalist. The patient will be evaluated for further management. Medical Decision Making Differential Diagnosis Differential diagnosis: Etiologies such as metabolic, infection, hypo/hyperglycemia, electrolyte abnormalities, cardiac sources, intracerebral event, toxicologic, neurologic, as well as others were entertained. Medical Records Attestation: I reviewed the patient's medical records. Home Medications Current Medication List: was personally reviewed by dc Laboratory Data Attestation: I reviewed the patient's lab results. Result diagrams: 02/13/19 12:07 02/13/19 12:07 Lab Results 02/13/19 02/13/19 02/13/19 Range/Units 12:07 12:07 12:07 WBC 7.13 (4.8-10.8) K/uL RBC 4.33 (4.2-5.4) M/uL Hgb 12.8 (12.0-16.0) g/dL Hct 38.7 (37-47) % MCV 89.4 (80-100) fL MCH 29.6 (25-34) pg MCHC 33.1 (32-36) g/dL RDW Std Deviation 49.0 H (36.4-46.3) fL RDW Coeff of Jessi 15.3 H (11.5-14.5) % Plt Count 229 (130-400) K/uL MPV 10.1 (7.4-10.4) fL Immature Gran % (Auto) 0.1 % Neut % (Auto) 65.6 % Lymph % (Auto) 20.1 % [place] % (Auto) 9.5 % Eos % (Auto) 4.1 % Baso % (Auto) 0.6 % Immature Gran # (Auto) 0.01 (0.00-0.02) K/uL Neut # (Auto) 4.68 (1.4-6.5) K/uL Lymph # (Auto) 1.43 (1.2-3.4) K/uL [place] # (Auto) 0.68 H (0.11-0.59) K/uL Eos # (Auto) 0.29 (0-0.5) K/uL Baso # (Auto) 0.04 (0-0.2) K/uL PT 21.1 H (9.0-12.0) Seconds INR 2.2 H (0.9-1.1) APTT 36.6 H (21.0-31.0) Seconds PTT Ratio 1.4 Sodium 137 (136-145) mmol/L Potassium 4.6 (3.5-5.1) mmol/L Chloride 103 (98-107) mmol/L Carbon Dioxide 28 (21-32) mmol/L Anion Gap 6.0 (3-11) BUN 18 (7-18) mg/dl Creatinine 0.89 (0.6-1.2) mg/dl Est Cr Clr Drug Dosing 37.6 ml/min Est GFR ( Amer) 70.0 Est GFR (Non-Af Amer) 60.4 BUN/Creatinine Ratio 19.8 (10-20) Glucose 97 (70-99) mg/dl Calcium 8.9 (8.5-10.1) mg/dl Magnesium 2.6 H (1.8-2.4) mg/dl Total Bilirubin 0.4 (0.2-1) mg/dl AST 31 (15-37) U/L ALT 48 (12-78) U/L Alkaline Phosphatase 156 H (45-117) U/L Troponin I < 0.015 (0-0.045) ng/ml Total Protein 6.8 (6.4-8.2) gm/dl Albumin 3.5 (3.4-5.0) gm/dl Globulin 3.3 (2.5-4.0) gm/dl Albumin/Globulin Ratio 1.1 (0.9-2) Lipase 229 (73-393) U/L TSH 4.910 H (0.300-4.500) uIu/ml Free T4 0.97 (0.8-1.6) ng/dl Imaging Data Radiologist's Impression: Radiology results as stated below per my review and the radiologist's interpretation: XR chest 1V portable CLINICAL HISTORY: Atypical chest pain COMPARISON STUDY: 01/23/2015 FINDINGS: The patient is hyperinflated. There is no failure. There is no focal pulmonary consolidation. There are no pleural effusions. A right upper lobe lung zone nohelia shadow, likely represents a skinfold.[If there is clinical concern over the presence of a pneumothorax, a PA chest x-ray is recommended in follow-up IMPRESSION: 1. Hyperinflation 2. No evidence of focal pulmonary consolidation 3. Right upper lung zone line shadow, likely representing a skinfold. ACT 112: Negative or not required by law. Electronically signed by: Mitchell Beth M.D. 02/13/2019 2:00 PM ECG Data Attestation: I personally reviewed and interpreted this ECG as follows: Indication: + weakness Rate (beats per minute): 44 Rhythm: + sinus rhythm ECG Intervals/blocks: + Complete heart block ECG ST segments: + T-wave inversions (Inferior) ECG Findings: + PVCs and + Other (Junctional escape rhythm) Blood Pressure Blood Pressure Findings: Elevated blood pressure Blood Pressure Disposition: further management by hospitalist MDM Narrative This is an 83-year-old female who presents to the ED with a chief complaint of an arrhythmia. The patient presents from the PCPs office after a routine foll ow-up visit found that she had what appears to be a third-degree heart block with a junctional escape rhythm. The patient states that she was feeling a little weak yesterday and today. She also feels like her breathing is a little more difficult when she is lying flat. She currently denies any specific complaints resting in bed. Her vital signs reveal heart rate of 44 and a blood pressure 154/70. Her physical exam is unremarkable other than the bradycardia. The patient's twelve-lead EKG shows what appears to be an A-V dissociation with a junctional escape rhythm and the rate of 40-50. She does have a PVC. I did speak with Dr. Gleason, cardiology, about the patient. He will see the patient in the ED. the patient CBC is normal. INR is 2.2. Complete metabolic panel was unremarkable. Troponin is negative and free T4 is normal. I did speak with the hospitalist. They will see the patient also for inpatient care evaluation. Impression & Plan Third degree heart block Discharge Plan Visit Data Chief Complaint: Cardiac Assessment Stated Complaint: SLOW HEART RATE AV BLOCK ED Provider: Robert Brandon Discharge Problem: Third degree heart block Patient Disposition: Being Evaluated by Hospitalist Forms Stand Alone Forms: My [facility] Prescriptions Prescriptions: No Action venlafaxine 37.5 mg capsule,extended release 24hr 37.5 mg PO DAILY RF: 0 fluticasone propion-salmeterol [Advair Diskus] 250-50 mcg/dose Blister With Device 1 inh INHALATION Q12H RF: 0 diltiazem HCl [Cardizem CD] 240 mg Capsule,Extended Release 24hr 240 mg PO QAM RF: 0 potassium chloride 10 mEq Tablet Extended Release 10 meq PO QAM RF: 0 fexofenadine [Trixie Allergy] 180 mg Tablet 180 mg PO DAILY PRN (Reason: ALLERGY RELIEF) RF: 0 valacyclovir 500 mg Tablet 500 mg PO QAM RF: 0 liothyronine 5 mcg Tablet 5 mcg PO QAM RF: 0 warfarin [Coumadin] 4 mg Tablet 4 mg PO UD RF: 0 levothyroxine 50 mcg Tablet 50 mcg PO QAM RF: 0 albuterol sulfate [ProAir HFA] 90 mcg/actuation Hfa Aerosol Inhaler 2 puff INHALATION QID PRN (Reason: SHORT OF BREATH) RF: 0 cholecalciferol (vitamin D3) [Vitamin D3] 1,000 unit Capsule 1,000 unit PO DAILY RF: 0 omeprazole 20 mg Tablet,Delayed Release (Dr/Ec) 20 mg PO QAM RF: 0 PreserVision AREDS 7,160-113-100 [id number] Tablet 1 tab PO BID RF: 0 Lotemax 0.5 % Drops,Gel 1 drp OPR HS RF: 0 Referrals Referrals: Edmond Matamoros [Primary Care Provider] - The scribe's documentation has been prepared under my direction and personally reviewed by me in its entirety. I confirm that the note above accurately reflects all work, treatment, procedures, and medical decision making performed by me.
[2019-02-13 12:38] LABS: Basophils # (auto) 0.04 K/uL (0-0.2); Basophils % (auto) 0.6 %; Eosinophils # (auto) 0.29 K/uL (0-0.5); Eosinophils % (auto) 4.1 %; Hematocrit (blood only) 38.7 % (37-47); Hemoglobin 12.8 g/dL (12.0-16.0); Immature Granulocytes # (auto) 0.01 K/uL (0.00-0.02); Immature Granulocytes % (auto) 0.1 %; Lymphocytes # (auto) 1.43 K/uL (1.2-3.4); Lymphocytes % (auto) 20.1 %; Mean Corpuscular Hemoglobin 29.6 pg (25-34); Mean Corpuscular Hgb Conc 33.1 g/dL (32-36); Mean Corpuscular Volume 89.4 fL (80-100); Mean Platelet Volume 10.1 fL (7.4-10.4); Monocytes # (auto) 0.68 K/uL (0.11-0.59); Monocytes % (auto) 9.5 %; Neutrophils # (auto) 4.68 K/uL (1.4-6.5); Neutrophils % (auto) 65.6 %; Platelet Count 229 K/uL (130-400); RDW Coefficient of Variation 15.3 % (11.5-14.5); Red Blood Count 4.33 M/uL (4.2-5.4); White Blood Count 7.13 K/uL (4.8-10.8)
[2019-02-13 12:50] LABS: INR 2.2 (0.9-1.1); Partial Thromboplastin Ratio 1.4; Partial Thromboplastin Time 36.6 Seconds (21.0-31.0); Prothrombin Time 21.1 Seconds (9.0-12.0)
[2019-02-13 12:51] LABS: Alanine Aminotransferase 48 U/L (12-78); Albumin Globulin Ratio 1.1 (0.9-2); Albumin Level 3.5 gm/dl (3.4-5.0); Alkaline Phosphatase 156 U/L (45-117); Aspartate Aminotransferase 31 U/L (15-37); BUN Creatinine Ratio 19.8 (10-20); Bilirubin,Total 0.4 mg/dl (0.2-1); Blood Urea Nitrogen 18 mg/dl (7-18); Calcium 8.9 mg/dl (8.5-10.1); Carbon Dioxide 28 mmol/L (21-32); Chloride 103 mmol/L (98-107); Creatinine Clr Calc Pharmacy 37.6 ml/min; Est GFR (Non-African American) 60.4; Globulin 3.3 gm/dl (2.5-4.0); Glucose 97 mg/dl (70-99); Lipase 229 U/L (73-393); Magnesium 2.6 mg/dl (1.8-2.4); Potassium 4.6 mmol/L (3.5-5.1); Sodium 137 mmol/L (136-145); Total Protein 6.8 gm/dl (6.4-8.2); Troponin I < 0.015 ng/ml (0-0.045)
--- NOTE | 2019-02-13 13:04 | Cardiology Consultation ---
Date of Consultation February 13, 2019 Assessment & Plan (1) Third degree AV block: (2) Paroxysmal atrial fibrillation: (3) Bifascicular block: Patient on chronic treatment with diltiazem 240 mg daily. 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 Plan to hold diltiazem. INR 2.2 today. Has stable junctional escape rhythm with stable BP. No indication for temporary pacemaker at present. Will hold diltiazem for now and plan for permanent pacemaker later today or tormorrow. Will keep NPO pending timing of pacemaker. History of Present Illness History of Present Illness Ellie Siddiqui is an 83 year old female seen in cardiology consultation in emergency department room C3 for the evaluation of symptomatic bradycardia.He patient's primary kitchen and bath designer is Dr Dodge of our practice. 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 She resides in an apartment with her at [facility]. Today she presented to her PCP for symptoms of generalized fatigue, head heaviness, leg heaviness and exertional shortness of breath of at least 2 days duration. EKG performed there and again in the ED reveals third degree AV block with junctional rhythm in the range of 40-45 bpm. Pt's BP is stable. No recent syncope. Had recent respiratory tract infection with sinus and lung congestion over 2 weeks ago. She completed a course of antibiotic therapy and prednisone therapy. Allergies Allergy/AdvReac Type Severity Reaction Status Date / Time codeine Allergy Intermediate VOMITTING Verified 02/13/19 12:50 COFFEE GROUNDS latex Allergy Mild Rash Verified 02/13/19 12:50 Penicillins Allergy Mild RASH Verified 02/13/19 12:50 Sulfa (Sulfonamide Allergy Mild RASH Verified 02/13/19 12:50 Antibiotics) Home Medications Home Medications Medication Instructions Recorded Confirmed Type Lotemax 1 drp OPR HS 06/19/18 12/26/18 History PreserVision AREDS 1 tab PO BID 06/19/18 12/26/18 History albuterol sulfate [ProAir HFA] 2 puff INHALATION QID PRN 06/19/18 12/26/18 History cholecalciferol (vitamin D3) 1,000 unit PO DAILY 06/19/18 12/26/18 History [Vitamin D3] diltiazem HCl [Cardizem CD] 240 mg PO QAM 06/19/18 12/26/18 History fexofenadine [Trixie Allergy] 180 mg PO DAILY PRN 06/19/18 12/26/18 History fluticasone propion-salmeterol 1 inh INHALATION Q12H 06/19/18 12/26/18 History [Advair Diskus] levothyroxine 50 mcg PO QAM 06/19/18 12/26/18 History liothyronine 5 mcg PO QAM 06/19/18 12/26/18 History omeprazole 20 mg PO QAM 06/19/18 12/26/18 History potassium chloride 10 meq PO QAM 06/19/18 12/26/18 History valacyclovir 500 mg PO QAM 06/19/18 12/26/18 History warfarin [Coumadin] 4 mg PO UD 06/19/18 12/26/18 History venlafaxine 37.5 mg 37.5 mg PO DAILY 12/26/18 12/26/18 History capsule,extended release 24 hr Patient History Medical History Anemia HX OF Asthma HAS NOT USED RESCUE INHALER FOR A LONG TIME Atrial fibrillation Cardiac murmur Degenerative disc disease Depression GERD (gastroesophageal reflux disease) Gout Hypertension Hypothyroidism Macular degeneration Osteoarthritis Shingles IN EYE (REASON FOR VALACYCLOVIR) Stroke JANUARY 2009 Vocal cord anomaly "LIES FLAT" Surgical History History of adenoidectomy History of cardiac cath 2 YEARS AGO (NO STENTS) History of cataract surgery RT/LEFT History of cervical discectomy History of colonoscopy History of dilatation and curettage History of endoscopic sinus surgery POLYPS REMOVED History of esophagogastroduodenoscopy (EGD) History of tonsillectomy History of tooth extraction Family History Grandmother (Paternal) Family hx of colon cancer Social History Preferred Language: Somali Communication Ability: Effective Barrel Bander Required: No Beliefs That Will Affect Care: None Current Living Situation: Spouse Current Living Situation Comment: AT [facility] Feels Safe at Home: Yes Smoking Status: Never smoker Second Hand Exposure: Yes ( A CHILD) ; Hx Alcohol Use: No Hx Substance Use: No Review of Systems Review of Systems: All systems reviewed & are unremarkable except as noted in HPI & below Cardiovascular: as per Subjective / HPI and + dyspnea on exertion; no chest pain, no syncope and no edema Physical Exam Physical Exam: Pulse Resp BP Pulse Ox 45 L 17 142/58 H 99 02/13/19 12:30 02/13/19 12:30 02/13/19 12:30 02/13/19 12:36 Constitutional: WD/WN, vitals as above Respiratory: normal respiratory effort, lungs clear to auscultation Cardiovascular: Rate/Rhythm: + bradycardic Heart Sounds: no murmur Vessels: no JVD Extremities: + edema Gastrointestinal (Abdomen): normal bowel sounds, soft, nontender, no hepatosplenomegaly Skin: no rashes, warm and dry Results & Data Vital Signs (Past 12 Hours) Vital Signs Pulse Resp BP Pulse Ox 02/13/19 12:36 99 02/13/19 12:30 45 L 17 142/58 H 99 02/13/19 12:08 45 L 19 159/79 H 02/13/19 11:43 44 L 20 154/71 H 100
[2019-02-13 13:08] LABS: T4 Free Thyroxine 0.97 ng/dl (0.8-1.6)
--- NOTE | 2019-02-13 14:01 | XRay Report ---
XR chest 1V portable CLINICAL HISTORY: Atypical chest pain COMPARISON STUDY: 01/23/2015 FINDINGS: The patient is hyperinflated. There is no failure. There is no focal pulmonary consolidatio n. There are no pleural effusions. A right upper lobe lung zone nohelia shadow, likely represents a skinf old.[If there is clinical concern over the presence of a pneumothorax, a PA chest x-ray is recommende d in follow-up IMPRESSION: 1. Hyperinflation 2. No evidence of focal pulmonary consolidation 3. Right upper lung zone line shadow, likely representing a skinfold. ACT 112: Negative or not required by law. Electronically signed by: Mitchell Beth M.D. 02/13/2019 2:00 PM
--- NOTE | 2019-02-13 14:24 | History & Physical Report ---
Date of Service February 13, 2019 Assessment & Plan (1) Third degree AV block: Admit to PCU on telemetry Keep n.p.o. for cardiac pacemaker procedure placement The case was discussed with Dr. Merino cardiology [facility] DVT prophylaxis teds and SCDs After the procedure restart warfarin as per cardiology Full code Present on Admission?: Yes (2) Paroxysmal atrial fibrillation: Hold diltiazem 240 mg daily for now. Continue monitoring INR Present on Admission?: Yes (3) Bifascicular block: Will keep NPO pending timing of pacemaker. (4) Hypertension: Stable, continue continue monitoring. Hold diltiazem per cardiology. Patient is not on other blood pressure medicine. Present on Admission?: Yes (5) Hypothyroidism: TSH 4.910-mildly elevated, T4 normal 0.97, continue Lyothyronine 5 MCG's p.o. every morning, levothyroxine 50 MCG's p.o. (6) Depression: Stable, continue venlafaxine 37.5 mg p.o. every morning. Present on Admission?: Yes History of Present Illness Chief Complaint: Generalized weakness Primary Care Provider: [facility] Patient is an 83 years old female with past medical history of hemifacial spasm, TIA, headache, right carotid bruit who complains of constant weakness that started last night. The patient reports she felt weak last night and her muscles were not as strong. Patient noticed that she was short of breath especially when she was lying down. Patient states she went to see her PCP today who determined that patient has third-degree heart block. Patient denies fever, chills, headache, abdominal pain, frequency, urgency. Labs are reviewed WBC 7.13, hemoglobin 12.8, hematocrit 38.7, platelets 229, PT 21.1, INR 2.2, APTT 36.6, sodium 137, potassium 4.6, chloride 103, BUN 18, creatinine 0.89, GFR 60.4, magnesium 2.6, AST 31, ALT 48, alkaline phosphatase 156, troponin 0.015, TSH 4.91, free T4 0.97. Chest x-rays hyperinflation, no evidence of focal pulmonary consolidation. Decision was made to admit patient to PCU on telemetry for third-degree heart block and for placement of the pacemaker and further management and monitoring. Allergies Allergy/AdvReac Type Severity Reaction Status Date / Time codeine Allergy Intermediate VOMITTING Verified 02/13/19 14:37 COFFEE GROUNDS latex Allergy Mild Rash Verified 02/13/19 14:37 Penicillins Allergy Mild RASH Verified 02/13/19 14:37 Sulfa (Sulfonamide Allergy Mild RASH Verified 02/13/19 14:37 Antibiotics) Home Medications Home Medications Medication Instructions Recorded Confirmed Type Lotemax 1 drp OPR HS 06/19/18 02/13/19 History PreserVision AREDS 1 tab PO BID 06/19/18 02/13/19 History albuterol sulfate [ProAir HFA] 2 puff INHALATION QID PRN 06/19/18 02/13/19 History cholecalciferol (vitamin D3) 1,000 unit PO QAM 06/19/18 02/13/19 History [Vitamin D3] diltiazem HCl [Cardizem CD] 240 mg PO QAM 06/19/18 02/13/19 History fexofenadine [Trixie Allergy] 180 mg PO DAILY PRN 06/19/18 02/13/19 History fluticasone propion-salmeterol 1 inh INHALATION Q12H 06/19/18 02/13/19 History [Advair Diskus] levothyroxine 50 mcg PO MOTUWETHFRSA 06/19/18 02/13/19 History liothyronine 5 mcg PO QAM 06/19/18 02/13/19 History omeprazole 20 mg PO QAM 06/19/18 02/13/19 History potassium chloride 10 meq PO QAM 06/19/18 02/13/19 History valacyclovir 500 mg PO QAM 06/19/18 02/13/19 History venlafaxine 37.5 mg 37.5 mg PO QAM 12/26/18 02/13/19 History capsule,extended release 24 hr carboxymethylcellulose-glycern 1 drp OPL 02/13/19 02/13/19 History [Lubricant Eye (cmc-glycerin)] sennosides [senna] 8.6 mg PO QDD 02/13/19 02/13/19 History vitamin B complex 1 tab PO QAM 02/13/19 02/13/19 History warfarin 2.5 mg PO MOFR 02/13/19 02/13/19 History warfarin 5 mg PO SUTUWETHSA 02/13/19 02/13/19 History Past Med/Surg History Medical History Anemia HX OF Asthma HAS NOT USED RESCUE INHALER FOR A LONG TIME Atrial fibrillation Cardiac murmur Degenerative disc disease Depression GERD (gastroesophageal reflux disease) Gout Hypertension Hypothyroidism Macular degeneration Osteoarthritis Shingles IN EYE (REASON FOR VALACYCLOVIR) Stroke JANUARY 2009 Vocal cord anomaly "LIES FLAT" Surgical History History of adenoidectomy History of cardiac cath 2 YEARS AGO (NO STENTS) History of cataract surgery RT/LEFT History of cervical discectomy History of colonoscopy History of dilatation and curettage History of endoscopic sinus surgery POLYPS REMOVED History of esophagogastroduodenoscopy (EGD) History of tonsillectomy History of tooth extraction Family History Grandmother (Paternal) Family hx of colon cancer Social History Preferred Language: Welsh Communication Ability: Effective Process Development Technician Required: No Beliefs That Will Affect Care: None Current Living Situation: Spouse Current Living Situation Comment: AT [facility]. LIVING Feels Safe at Home: Yes Smoking Status: Never smoker Second Hand Exposure: Yes ( A CHILD) ; Hx Alcohol Use: No Hx Substance Use: No Review of Systems Cardiovascular: as per Subjective / HPI and + dyspnea on exertion; no chest pain, no syncope and no edema Physical Exam Constitutional: WD/WN, vitals as above well developed Eyes: PERRL, conjunctivae normal, anicteric sclerae ENMT: external ear and nose normal, oropharynx normal Mallampati Class: III Neck: trachea midline, no thyromegaly Respiratory: normal respiratory effort, lungs clear to auscultation Cardiovascular: Rate/Rhythm: + bradycardic Heart Sounds: no murmur Vessels: dorsalis pedis pulses present; no JVD Extremities: + edema Gastrointestinal (Abdomen): normal bowel sounds, soft, nontender, no hepatosplenomegaly Musculoskeletal: no cyanosis or clubbing, extremities motor strength 5/5 Skin: no rashes, warm and dry Neurologic: patellar DTR's 2+ bilat, sensation intact Psychiatric: A+Ox3, euthymic affect Lymphatic: no cervical or axillary lymphadenopathy Results & Data Vital Signs (Past 12 Hours) Vital Signs Pulse Resp BP Pulse Ox 02/13/19 13:30 43 L 13 165/56 H 99 02/13/19 13:01 45 L 14 100 02/13/19 13:00 46 L 17 147/60 H 99 02/13/19 12:36 99 02/13/19 12:30 45 L 17 142/58 H 99 02/13/19 12:08 45 L 19 159/79 H 02/13/19 11:43 44 L 20 154/71 H 100 Code Status & VTE Plan VTE Prophylaxis Plan VTE Prophylaxis will be ordered: Yes PG Care Time/CCT Total # of Minutes Spent Total Time Spent with Patient: Total time spent is greater than 50% in coordination of care (as documented) at patient's floor/unit and/or counseling patient:
[2019-02-13] MEDS ORDERED: CLINDAMYCIN PHOS 300 MG/2 ML VIAL ONE (15:17)
[2019-02-13] MEDS ORDERED: LIDOCAINE HCL 1% 20 ML VIAL ONE (15:25)
[2019-02-13] MEDS ORDERED: fentaNYL citrate 100 MCG/2 ML VIAL ONE (15:25)
--- NOTE | 2019-02-13 15:25 | History & Physical Bridge Note ---
Date of Service February 13, 2019 History & Physical Bridge Note I have examined the patient, reviewed the History & Physical and in the interval since the performance of the History & Physical I have noted the following changes of clinical significance: pt with CHB for dual chamber ppm-consents obtained.
--- NOTE | 2019-02-13 15:25 | Pre Anesthesia Assessment ---
Date of Service February 13, 2019 Pre Sedation Assessment Vital Signs Temp Pulse Pulse Resp BP BP Pulse Ox 02/13/19 14:52 36.4 C L 46 L 14 129/54 L 100 02/13/19 14:31 44 L 15 150/53 H 100 02/13/19 14:01 46 L 13 150/63 H 100 02/13/19 13:41 44 L 16 165/56 H 99 02/13/19 13:30 43 L 13 165/56 H 99 02/13/19 13:01 45 L 14 100 02/13/19 13:00 46 L 17 147/60 H 99 02/13/19 12:36 99 02/13/19 12:30 45 L 17 142/58 H 99 02/13/19 12:08 45 L 19 159/79 H 02/13/19 11:43 44 L 20 154/71 H 100 Cardiovascular + bradycardic Respiratory normal respiratory effort, lungs clear to auscultation Pre-Sedation Airway Assessment Smoking Status: Never smoker Hx Sleep Apnea: No Hx Difficult Intubation: No Short, Thick Neck: No Thyromental Distance: > or= 3.5 Finger Breadths Oral Cavity: + WNL Mallampati Class: III ASA: ASA3 NPO Status Date of Last Intake of Fluids: 02/13/19 Time of Last Intake of Fluids: 09:00 Date of Last Intake of Solid Food: 02/13/19 Time of Last Intake of Solid Foods: 09:00 Procedure Planning Contraindications for Sedation: none Current Medications Reviewed: Yes Notes The planned sedation has been discussed with the patient. Informed Consent was obtained. I have identified the patient, determined the appropriateness of sedation and have assessed the patient immediately prior to the procedure. All medicine(s) and interventions are by my order.
[2019-02-13] MEDS ORDERED: MIDAZOLAM HCL 1 MG/ML 2ML VIAL ONE (15:26)
[2019-02-13] MEDS ORDERED: BACITRACIN INJ 50,000 UNIT VIAL ONE (15:26)
[2019-02-13] MEDS ORDERED: BUPIVACAINE 0.25% 30 ML VIAL ONE (15:26)
--- NOTE | 2019-02-13 16:50 | Post Anesthesia Assessment ---
Date of Service February 13, 2019 Post Sedation Assessment Vital Signs Temp Pulse Pulse Resp BP BP Pulse Ox 02/13/19 14:52 36.4 C L 46 L 14 129/54 L 100 02/13/19 14:31 44 L 15 150/53 H 100 02/13/19 14:01 46 L 13 150/63 H 100 02/13/19 13:41 44 L 16 165/56 H 99 02/13/19 13:30 43 L 13 165/56 H 99 02/13/19 13:01 45 L 14 100 02/13/19 13:00 46 L 17 147/60 H 99 02/13/19 12:36 99 02/13/19 12:30 45 L 17 142/58 H 99 02/13/19 12:08 45 L 19 159/79 H 02/13/19 11:43 44 L 20 154/71 H 100 Recovery Score Activity: Moves 4 extremities Respiration: Deep Breath/Cough Circulation: +/-20% PreAnes Value Consciousness: Fully Awake Oxygen Saturation: O2 needed for >90% Discharge Sedation Level of Care: Fast Track Phase II Post Sedation Plan On clinical assessment, the patient appears to have tolerated the sedation without complications. Patient is recovering as anticipated. Patient will continue to be monitored by nursing and may be discharged when sedation discharge criteria are met per below protocol. Upon Completions of procedure up to 15 minutes continue every 5 minute vital signs and the P.A.R. score; then discharge to a Phase I or Fast Track to Phase II per the following guidelines: * Discharge Patient to appropriate Phase II area if PAR is 8 or greater or return to pre- procedure baseline. The post - procedure orders will be as directed. * If PAR score is less than 8 or not return to pre-procedure baseline then patient will follow Phase I monitoring till PAR is reached for Phase II. The Phase I may be done in procedure room or may call to secure a Phase I area. * If naloxone or flumazenil are used for reversal, hold in Phase I for continued monitoring from when last reversal dose was given for a minimum of 60 minutes or longer pending the nurse and/or physician discretion of patient condition before discharge to Phase II. Please call the Sedation Physician to re-evaluate and complete post-note for discharge to Phase II area. Do NOT discharge from procedure sedation or Phase 1 until post- sedation evaluation note is complete by procedure /sedation MD Sedation Discharge Instructions to be given to the patient at discharge to home.
--- NOTE | 2019-02-13 16:50 | Operative Report ---
Post Operative Report Pre & Post Diagnosis chb Operation Date: 02/13/19 15:00 <No data on this case meets the specified criteria> I identified the patient and participated in the time-out.: Yes Procedure Operation Date: 02/13/19 15:00 Actual Procedures p Pacer with A/V Leads (Dual) - Airam Lee DO s Venogram, Unilateral - Airam Lee DO Surgeon Airam Lee, Washing Machine Loader And Puller none Estimated Blood Loss 35 Findings Consistent with Post-Op Diagnosis Specimens none Description of Procedure see official report I attest to the content of the Intraoperative Record and any orders documented therein. Any exceptions are noted below.
[2019-02-13] MEDS ORDERED: Nursing to Pharmacy Communication ONE (16:52)
[2019-02-13] MEDS ORDERED: ALUMINUM/MAGNESIUM SUSP 30 ML UDC PO PRN (17:38)
[2019-02-13] MEDS ORDERED: ACETAMINOPHEN 325 MG TAB PO PRN (17:38)
[2019-02-13] MEDS ORDERED: MAGNESIUM HYDROXIDE SUSP 30 ML UDC PO PRN (17:38)
[2019-02-13] MEDS ORDERED: FEXOFENADINE HCL 180 MG TAB PO PRN (17:38)
[2019-02-13] MEDS ORDERED: ALBUTEROL HFA 8 GM INHALER INH PRN (17:38)
[2019-02-13] MEDS ORDERED: POLYETHYLENE (MIRALAX) 17 GM PACK PO PRN (17:38)
[2019-02-13] MEDS ORDERED: ONDANSETRON INJ 2 MG/ML 2 ML VIAL IV PRN (17:38)
[2019-02-13] MEDS ORDERED: SODIUM CHLORIDE 0.9% 1000ML 1,000 ML IV SCH (18:00)
[2019-02-13] MEDS: FLUTICASONE/SALMETEROL 250/50 (ADVAIR) 14 PUFF/1 INHALER INH SCH (19:07)
[2019-02-13] MEDS: CEROVITE ADV FORMULA TAB PO SCH (19:08)
[2019-02-13] MEDS: ACETAMINOPHEN 325 MG TAB PO PRN (21:48)
--- NOTE | 2019-02-14 06:09 | Electrocardiogram Report ---
Test Reason : Blood Pressure : / mmHG Vent. Rate : 044 BPM Atrial Rate : 077 BPM P-R Int : 000 ms QRS Dur : 112 ms QT Int : 522 ms P-R-T Axes : 074 -83 -46 degrees QTc Int : 446 ms Sinus rhythm with complete heart block and Junctional bradycardia Left axis deviation Anterior infarct Possible Inferior infarct Abnormal ECG When compared with ECG of 25-JAN-2015 06:27, Complete heart block is now present Vent. rate has decreased BY 24 BPM Right bundle branch block is no longer Present Anterior infarct is now Present Confirmed by Adonay Judge ([id number]) on 02/14/2019 6:08:46 AM Referred By: Linus Dodge Confirmed By:Adonay Judge
[2019-02-14] MEDS ORDERED: LEVOTHYROXINE SODIUM 50 MCG TABLET PO SCH (06:30)
[2019-02-14 06:41] LABS: Basophils # (auto) 0.02 K/uL (0-0.2); Basophils % (auto) 0.3 %; Eosinophils # (auto) 0.29 K/uL (0-0.5); Eosinophils % (auto) 4.3 %; Hematocrit (blood only) 31.5 % (37-47); Hemoglobin 10.7 g/dL (12.0-16.0); Immature Granulocytes # (auto) 0.01 K/uL (0.00-0.02); Immature Granulocytes % (auto) 0.1 %; Lymphocytes # (auto) 0.85 K/uL (1.2-3.4); Lymphocytes % (auto) 12.6 %; Mean Corpuscular Hemoglobin 29.8 pg (25-34); Mean Corpuscular Volume 87.7 fL (80-100); Mean Platelet Volume 9.7 fL (7.4-10.4); Monocytes # (auto) 0.59 K/uL (0.11-0.59); Monocytes % (auto) 8.7 %; Neutrophils # (auto) 5.01 K/uL (1.4-6.5); Platelet Count 167 K/uL (130-400); RDW Coefficient of Variation 15.3 % (11.5-14.5); RDW Standard Deviation 48.1 fL (36.4-46.3); Red Blood Count 3.59 M/uL (4.2-5.4); White Blood Count 6.77 K/uL (4.8-10.8)
[2019-02-14 06:53] LABS: INR 1.6 (0.9-1.1)
[2019-02-14 07:02] LABS: Estimated Average Glucose 131 mg/dl; Hemoglobin A1C 6.2 % (4.5-5.6)
--- NOTE | 2019-02-14 07:12 | XRay Report ---
XR chest 2V PA/lateral CLINICAL HISTORY: 83 years-old Female presenting with post implant. TECHNIQUE: PA and lateral views of the chest were obtained. COMPARISON: 02/13/2019. FINDINGS: Interval placement of a left subclavian pacer with leads to the right atrium and right ventricular ap ex. Atherosclerosis of the aortic arch. Cardiac silhouette normal in size. Lungs are hyperinflated. N o focal opacity. No pleural effusion or pneumothorax. Osteopenia. Degenerative changes of the spine. Anterior cervical fusion hardware. External leads project over the right upper quadrant. Upper abdome n normal. IMPRESSION: 1. No pneumothorax status post left subclavian 2-lead pacer placement. 2. Emphysema. ACT 112: Negative or not required by law. Electronically signed by: John Miller M.D. 02/14/2019 7:11 AM
[2019-02-14 07:29] LABS: Est GFR (African American) 76.1; Est GFR (Non-African American) 65.7; Potassium 3.9 mmol/L (3.5-5.1)
[2019-02-14 07:30] LABS: Albumin Level 2.7 gm/dl (3.4-5.0); BUN Creatinine Ratio 19.5 (10-20); Bilirubin,Total 0.5 mg/dl (0.2-1); Calcium 7.9 mg/dl (8.5-10.1); Creatinine Clr Calc Pharmacy 37.5 ml/min; Globulin 2.7 gm/dl (2.5-4.0); Total Protein 5.4 gm/dl (6.4-8.2)
[2019-02-14] MEDS: FLUTICASONE/SALMETEROL 250/50 (ADVAIR) 14 PUFF/1 INHALER INH SCH (08:28)
[2019-02-14] MEDS: CEROVITE ADV FORMULA TAB PO SCH (08:28)
[2019-02-14] MEDS ORDERED: PANTOprazole 40 MG TAB PO SCH (09:00)
[2019-02-14] MEDS ORDERED: LIOTHYRONINE SODIUM 5 MCG TAB PO SCH (09:00)
[2019-02-14] MEDS ORDERED: POTASSIUM CHLORIDE 10 MEQ TABCR PO SCH (09:00)
[2019-02-14] MEDS ORDERED: VENLAFAXINE HCL XR 37.5 MG CAPXR PO SCH (09:00)
[2019-02-14] MEDS ORDERED: CHOLECALCIFEROL 1,000 UNITS TAB PO SCH (09:00)
[2019-02-14] MEDS ORDERED: VALACYCLOVIR HCL 500 MG TABLET PO SCH (09:00)
[2019-02-14] MEDS: ACETAMINOPHEN 325 MG TAB PO PRN (10:36)
[2019-02-14] MEDS ORDERED: dilTIAZem HCL 240 MG CAPCR PO SCH (11:45)
--- NOTE | 2019-02-14 11:50 | Cardiology Progress Note ---
Date of Service February 14, 2019 Assessment & Plan (1) Third degree AV block: (2) Paroxysmal atrial fibrillation: (3) Pacemaker: (4) Hypertension: Patient feeling well. Chest x-ray reveals stable lead position, with no evidence of pneumothorax. Pacemaker interrogation reveals appropriate function. Patient remains in sinus rhythm. INR 1.6 today. I have reordered her prior to hospital dose of diltiazem 240 mg daily. Patient is stable for discharge from a cardiology perspective on her prior to hospital dose of Coumadin. She is scheduled for a wound check and device check on 02/21/2019 at 1230 at [facility]. Wound care instructions as noted below. ACTIVITY RECOMMENDATIONS: * Do not raise affected arm over head for 2 weeks. SPECIAL CARE INSTRUCTIONS: * If bleeding occurs, apply direct pressure to area for 5 minutes. * Call your doctor if you have severe pain, fever, drainage or bleeding at site. * Keep dressing on and dry for 48 hours then remove. * Keep any scheduled doctor's appointment. * Implant Card - hand held device with website information given. SKIN IRRITATION: * You may experience some redness and/or swelling in the area where radiation was administered. If any skin irritation occurs, please contact your family physician. FOLLOW UP VISIT: Keep any scheduled doctor appointments. Subjective Patient tolerated implantation of dual-chamber pacemaker yesterday very well. She is comfortable, sitting in bed, reading. She is eager for discharge. Telemetry reveals sinus rhythm with ventricular pacing in the range of 70 bpm at rest and 90 bpm with minimal activity. Review of Systems Review of Systems: All systems reviewed & are unremarkable except as noted in HPI & below Physical Exam Physical Exam: Temp Pulse Resp BP Pulse Ox 37.6 C H 81 18 153/62 H 94 02/14/19 11:41 02/14/19 11:41 02/14/19 11:41 02/14/19 11:41 02/14/19 11:41 Cardiac Enzymes 02/13/19 02/14/19 Range/Units 12:07 06:21 AST 31 23 (15-37) U/L Troponin I < 0.015 (0-0.045) ng/ml Coagulation 02/13/19 02/14/19 Range/Units 12:07 06:21 PT 21.1 H 16.0 H (9.0-12.0) [place] ds APTT 36.6 H (21.0-31.0) [place] nds Lipids 02/14/19 Range/Units 06:21 Triglycerides 64 (0-150) mg/dl Cholesterol 166 (0-200) mg/dl HDL Cholesterol 67 mg/dl Cholesterol/HDL Ra leeanna 3 CBC 02/13/19 02/14/19 Range/Units 12:07 06:21 WBC 7.13 6.77 (4.8-10.8) K/uL RBC 4.33 3.59 L (4.2-5.4) M/uL Hgb 12.8 10.7 L (12.0-16.0) g/dL Hct 38.7 31.5 L (37-47) % Plt Count 229 167 (130-400) K/uL Neut # (Auto) 4.68 5.01 (1.4-6.5) K/uL Lymph # (Auto) 1.43 0.85 L (1.2-3.4) K/uL [place] # (Auto) 0.68 H 0.59 (0.11-0.59) K/uL Eos # (Auto) 0.29 0.29 (0-0.5) K/uL Baso # (Auto) 0.04 0.02 (0-0.2) K/uL Comprehensive Metabolic Panel 02/13/19 02/14/19 Range/Units 12:07 06:21 Sodium 137 138 (136-145) mmol/L Potassium 4.6 3.9 D (3.5-5.1) mmol/L Chloride 103 106 (98-107) mmol/L Carbon Dioxide 28 26 (21-32) mmol/L BUN 18 16 (7-18) mg/dl Creatinine 0.89 0.83 (0.6-1.2) mg/dl Glucose 97 83 (70-99) mg/dl Calcium 8.9 7.9 L (8.5-10.1) mg/dl AST 31 23 (15-37) U/L ALT 48 33 (12-78) U/L Alkaline Phosphata se 156 H 111 (45-117) U/L Total Protein 6.8 5.4 L D (6.4-8.2) gm/dl Albumin 3.5 2.7 L (3.4-5.0) gm/dl Intake and Output 02/13/19 02/14/19 02/14/19 22:59 06:59 14:59 Intake Total 100 / 150 50 / 150 1000 / 1000 Output Total 300 / 1350 1050 / 1350 250 / 250 Balance -200 / -1200 -1000 / -1200 750 / 750 Intake: IV 1000 / 1000 Nss 1000ML 1,0 00 ml @ 80 mls/hr 1000 / 1000 IV .[id number] SC H Rx#:[id number] Oral 100 / 150 50 / 150 Output: Urine 300 / 1350 1050 / 1350 250 / 250 Other: Weight 48.9 kg 45.4 kg Constitutional: WD/WN, vitals as above Respiratory: normal respiratory effort, lungs clear to auscultation Chest (Breasts): Chest: + pacemaker Additional Comments: pocket dry and intact Gastrointestinal (Abdomen): normal bowel sounds, soft, nontender, no hepatosplenomegaly Neurologic: PERRL, EOMI, accommodation nl, no face palsy, no dysarthria Results & Data Vital Signs (Past 12 Hours) Vital Signs Temp Pulse Pulse Resp BP Pulse Ox 02/14/19 08:00 69 02/14/19 07:01 37.1 C 74 20 156/72 H 100 02/14/19 03:56 36.8 C 68 20 154/73 H 99 02/13/19 23:59 75
--- NOTE | 2019-02-14 15:58 | Discharge Summary ---
Date of Service February 14, 2019 Admission HPI Per Admitting Provider Patient is an 83 years old female with past medical history of hemifacial spasm, TIA, headache, right carotid bruit who complains of constant weakness that started last night. The patient reports she felt weak last night and her muscles were not as strong. Patient noticed that she was short of breath especially when she was lying down. Patient states she went to see her PCP today who determined that patient has third-degree heart block. Patient denies fever, chills, headache, abdominal pain, frequency, urgency. Labs are reviewed WBC 7.13, hemoglobin 12.8, hematocrit 38.7, platelets 229, PT 21.1, INR 2.2, APTT 36.6, sodium 137, potassium 4.6, chloride 103, BUN 18, creatinine 0.89, GFR 60.4, magnesium 2.6, AST 31, ALT 48, alkaline phosphatase 156, troponin 0.015, TSH 4.91, free T4 0.97. Chest x-rays hyperinflation, no evidence of focal pulmonary consolidation. Decision was made to admit patient to PCU on telemetry for third-degree heart block and for placement of the pacemaker and further management and monitoring. Principal Diagnosis 3rd degree AV block Discharge Exam Constitutional WD/WN, vitals as above Eyes PERRL, conjunctivae normal, anicteric sclerae ENMT external ear and nose normal, oropharynx normal Neck trachea midline, no thyromegaly Respiratory normal respiratory effort, lungs clear to auscultation Cardiovascular RRR, no murmur, no edema Gastrointestinal (Abdomen) normal bowel sounds, soft, nontender, no hepatosplenomegaly Musculoskeletal no cyanosis or clubbing, extremities motor strength 5/5 (left arm in sling) Skin no rashes, warm and dry Neurologic patellar DTR's 2+ bilat, sensation intact and PERRL, EOMI, accommodation nl, no face palsy, no dysarthria Psychiatric A+Ox3, euthymic affect Lymphatic no cervical or axillary lymphadenopathy Discharge Data Allergies Allergy/AdvReac Type Severity Reaction Status Date / Time codeine Allergy Intermediate VOMITTING Verified 02/13/19 14:37 COFFEE GROUNDS latex Allergy Mild Rash Verified 02/13/19 14:37 Penicillins Allergy Mild RASH Verified 02/13/19 14:37 Sulfa (Sulfonamide Allergy Mild RASH Verified 02/13/19 14:37 Antibiotics) Consultations 02/13/19 12:55 ED Decision to Admit Stat 02/13/19 17:38 Consult Cardiology Routine Procedures Performed Operation Date: 02/13/19 15:00 Actual Procedures p Pacer with A/V Leads (Dual) - Airam Lee DO s Venogram, Unilateral - Airam Lee DO Ordered Studies 02/13/19 15:27 CL Cath Imgs for PACS use only Stat Hospital Course (1) Third degree AV block: permanent pacemaker placed by Dr. Brewer on 02/13/19 no complications pacer interrogated on 02/14, working well discussed discharge with Dr. Merino, patient is set up for follow up at [facility] next week instructions provided for dressing changes to incision, limb and lifting restrictions (2) Paroxysmal atrial fibrillation: continue diltiazem 240 mg daily now that pacemaker placed continue Coumadin for anticoagulation (3) Bifascicular block: pacemaker. (4) Hypertension: Stable, on Diltiazem (5) Hypothyroidism: TSH 4.910-mildly elevated, T4 normal 0.97, continue Lyothyronine 5 MCG's p.o. every morning, levothyroxine 50 MCG's p.o. (6) Depression: Stable, continue venlafaxine 37.5 mg p.o. every morning. Total Time Total Time Spent Total Time Spent (In Minutes): 20 minutes Total Time Includes: Examination of the Patient, Discharge Planning, Medication Reconciliation and Communication With Other Providers (Dr. Merino) Discharge Plan Discharge Items Patient Disposition: Personal Nursing Home Reason For Visit: HEART BLOCK Discharge Diagnosis: 3rd degree AV block atrial fibrillation s/p permanent pacemaker placement Condition on Discharge: Good Goals: follow discharge instructions follow up with cardiology Activity: As commented below Activity Comment: do not lift the left elbow over the left shoulder for 1 month Lifting: No more than 10 pounds Lifting Comment: do not lift more than 10 pounds with the left arm for 2 weeks Bathing: Keep incision dry Bathing Comment: keep dressing on & dry until your wound check next week Weightbearing: Full weightbearing Non-emergency contact: Primary Care Provider and Chain Person Call non-emergency contact if: you have any medication questions, your symptoms worsen, your pain is not controlled and you have a fever Follow-up/Referrals: Edmond Matamoros [Primary Care Provider] - Diet: Heart Healthy [facility] Attending Provider Instructions: Medications: no changes Keep the white dressing on and dry until your wound check Wound check is at [facility] [place] on Sunday02/21/19 at 12:15pm If you notice any swelling or concerns at the device site call Dr. Lee's office immediately ACTIVITY RECOMMENDATIONS: * Do not raise affected arm over head for 2 weeks. SPECIAL CARE INSTRUCTIONS: * If bleeding occurs, apply direct pressure to area for 5 minutes. * Call your doctor if you have severe pain, fever, drainage or bleeding at site. * Keep dressing on and dry for 48 hours then remove. * Keep any scheduled doctor's appointment. * Implant Card - hand held device with website information given. SKIN IRRITATION: * You may experience some redness and/or swelling in the area where radiation was administered. If any skin irritation occurs, please contact your family physician. Pending Studies at Discharge: No Stand-Alone Forms: My [employer], Smoking Cessation Skilled Items Patient informed of condition?: Yes DNR: No Discharge Level of Care: Other Communicable Disease: No Discharge Prognosis: Stable Lines: None Urinary Catheter: No Medications and DC Order Prescriptions: Continued venlafaxine 37.5 mg capsule,extended release 24hr 37.5 mg PO QAM RF: 0 fluticasone propion-salmeterol [Advair Diskus] 250-50 mcg/dose Blister With Device 1 inh INHALATION Q12H RF: 0 diltiazem HCl [Cardizem CD] 240 mg Capsule,Extended Release 24hr 240 mg PO QAM RF: 0 potassium chloride 10 mEq Tablet Extended Release 10 meq PO QAM RF: 0 fexofenadine [Trixie Allergy] 180 mg Tablet 180 mg PO DAILY PRN (Reason: ALLERGY RELIEF) RF: 0 valacyclovir 500 mg Tablet 500 mg PO QAM RF: 0 liothyronine 5 mcg Tablet 5 mcg PO QAM RF: 0 levothyroxine 50 mcg Tablet 50 mcg PO MOTUWETHFRSA RF: 0 albuterol sulfate [ProAir HFA] 90 mcg/actuation Hfa Aerosol Inhaler 2 puff INHALATION QID PRN (Reason: SHORT OF BREATH) RF: 0 cholecalciferol (vitamin D3) [Vitamin D3] 1,000 unit Capsule 1,000 unit PO QAM RF: 0 omeprazole 20 mg Tablet,Delayed Release (Dr/Ec) 20 mg PO QAM RF: 0 PreserVision AREDS 7,160-113-100 [id number] Tablet 1 tab PO BID RF: 0 Lotemax 0.5 % Drops,Gel 1 drp OPR HS RF: 0 sennosides [senna] 8.6 mg Tablet 8.6 mg PO QDD RF: 0 warfarin 5 mg tablet 5 mg PO SUTUWETHSA RF: 0 warfarin 5 mg tablet 2.5 mg PO MOFR RF: 0 vitamin B complex Tablet 1 tab PO QAM RF: 0 Lubricant Eye (cmc-glycerin) 0.5-0.9 % Drops 1 drp OPL HS RF: 0 Discharge Orders: Discharge Order (Routine); Ordered 02/14/19 Ordered By: Justin Desai/Other Patient Handouts: Prediabetes, Implantation Pacemaker Dc, A1C Admission Data Admit Date/Time: 02/13/19 14:22 Attending Provider: Justin Sanchez Admit Provider: Amparo Larios Primary Care Provider: Edmond Matamoros Other Providers: Amparo Larios ; Iron Merino Other Interventions: Discharge Summary Assessment (RN) Last Done: 02/14/19 16:46 DC Date/Time DO NOT enter until pt leaves facility: 02/14/19 17:45
[2019-02-14] MEDS ORDERED: WARFARIN SOD 2.5 MG TAB PO SCH (16:00)
[2019-02-15] MEDS ORDERED: WARFARIN SOD 5 MG TAB PO SCH (16:00)
--- NOTE | 2019-02-18 12:51 | Operative Report ---
DATE OF OPERATION: 02/13/2019 PREOPERATIVE DIAGNOSIS: Complete heart block. POSTOPERATIVE DIAGNOSIS: Complete heart block. PROCEDURE: Dual chamber rate responsive permanent pacemaker along with peripheral venogram under fluoroscopic guidance. SURGEON: Airam Lee DO ASSISTANTS: None. ANESTHESIA: Monitored conscious sedation administered under my supervision by Brenda Tran. Start time 15:40, end time 16:40. A total of 2 mg of Versed and 37.5 mg of fentanyl. ANTIBIOTICS: 600 mg of clindamycin. CONTRAST: 10 mL. BLOOD LOSS: 20 mL. URINE OUTPUT: Not applicable. SPECIMENS: None. FINDINGS: See below. DRAINS: None evident. CONDITION: Stable. COMPLICATIONS: None. INDICATIONS: This is an 83-year-old female with past medical history for paroxysmal atrial tachycardia as well as maybe paroxysmal atrial fibrillation, history of a CVA, so she is on Coumadin, hypertension, bifascicular block. Normal coronary anatomy by cardiac catheterization in 01/2015, hypothyroidism. The patient has been having dyspnea on exertion. She was brought into the Emergency Room and found to be in complete heart block and was recommended a pacemaker. CONSENT: Consent was obtained prior to the patient going into electrophysiology lab. The patient was informed of the risks, benefits and alternative procedure. Risks include but not limited to sudden cardiac , cardiac arrhythmias, cerebrovascular accident, myocardial infarction, injury to the blood vessels, chamber of the heart, lung, bleeding, and infection. The patient understood these risks and agreed to the procedure as planned. Informed consent was obtained. DESCRIPTION OF THE PROCEDURE: The patient was brought into electrophysiology lab in a fasting state. She was connected to continuous cardiac monitoring. A timeout was performed to ensure patient's identity and procedure correctly. The patient was prepped and draped over the left infraclavicular space in normal surgical standard fashion. Monitored conscious sedation was given throughout the procedure for patient's comfort level. [place] precautions were maintained throughout the procedure. She received prophylactic antibiotics prior to incision. A 20 mL of 1% lidocaine, bupivacaine mixture were given in the left deltopectoral. Incision was made in left deltopectoral groove. Blunt dissection was performed down to identify cephalic vein; however, none could be identified, so peripheral venogram was performed. This identified the axillary vein and an axillary venous access was obtained through a needlestick without any complications. Guidewire was inserted without any resistance. An 8-Luxembourger sheath was inserted over the guidewire without any resistance. Dilator was removed and a second guidewire was inserted through these 8-Luxembourger sheath to allow for retained venous access. Sheath was removed, flushed, reinserted over the dilator, then reinserted along the guidewire. The guidewire and dilator removed. Right ventricular lead was then advanced into right ventricle and positioned in intraventricular apex under fluoroscopic guidance. There was adequate pacing and sensing thresholds and no diaphragmatic stimulation with high output pacing. The 8-Luxembourger sheath was peeled away and lead was fixated to pectoralis muscle using 0 silk suture. A second 8-Luxembourger sheath was inserted over the retained guidewire without any resistance. Guidewire and dilator removed. The right atrial lead was then advanced into right atrium and positioned interatrial appendage under fluoroscopic guidance. There was adequate pacing and sensing thresholds and no diaphragmatic stimulation with high output pacing. The 8-Luxembourger sheath was peeled away and lead was fixated to pectoralis muscle using 0 silk suture. There was some backbleeding at the venous puncture site, so a pursestring using CT 2-0 Vicryl was placed around which stopped the backbleeding. Then using blunt dissection over the pectoralis muscle within the pectoralis fascia, a pacemaker pocket was created. The pocket was flushed with copious amounts of bacitracin saline wash and inspected for hemostasis. Pulse generator was then attached to the leads, making sure that the pins were in appropriate position, passed set screws and set screws were all tightened. Pulse generator was then placed in the pocket, making sure that the leads were lying flat beneath the device. A stay stitch using 0 silk suture was used to secure the device to pectoralis muscle. Stanislaw stat was placed in the pocket, making sure to prevent any further bleeding. Then the incision was closed in 3-layer fashion using 2-0 Vicryl interrupted suture followed by 3-0 Vicryl interrupted suture followed by a 4-0 Monocryl running stitch and Dermabond was applied followed by a Jonathan and micropore dressing. EQUIPMENT: 1. Pulse generator is an Emily XT DR GEETHA Mandujano [id number], [employer], serial number [id number]. 2. Right atrial lead Medtronic 5076-45 cm, serial number [id number]. 3. Right ventricular lead, Medtronic 5076-52 cm, serial number [id number]. INTRAOPERATIVE TESTIN. Right atrial lead: P waves 3.2 millivolts, impedance 600 ohms, threshold 0.2 volts at 0.5 milliseconds. 2. Right ventricular lead: R-wave 5.9 millivolts, impedance 710 ohms, threshold 0.4 volts at 0.5 milliseconds. FINAL MEASUREMENTS THROUGH THE DEVICE: 1. Right atrial lead: P waves 2.3 millivolts, impedance 437 ohms, threshold 0.5 volts at 0.4 milliseconds. 2. Right ventricular lead: No R-waves as patient has complete heart block. Impedance 570 ohms, threshold 0.75 volts at 0.4 milliseconds. FINAL PARAMETERS: DDD 60/120. Right atrial amplitude 3.5 volts, pulse width 0.4 milliseconds, sensitivity 0.3 millivolts. Right ventricular amplitude 3.5 volts, pulse width 0.4 milliseconds, sensitivity 1.2 millivolts. IMPRESSION: Successful implantation of rate responsive dual chamber permanent pacemaker under fluoroscopic guidance along with peripheral venogram secondary to complete heart block. PLAN: Monitor patient overnight, 12-lead ECG, chest x-ray. She cannot lift the left elbow or left shoulder for 1 month. She cannot lift more than 10 pounds with the left arm for 2 weeks. She should shower. She should let the dressing on, keep the dressing on and dry for 1 week and she should have a wound check in our [place] office the following week. I attest to the content of the Intraoperative Record and any orders documented therein. Any exception s are noted below.
== END 2019-02-14 17:45 | disposition home or self-care (01) | DRG 244 ==
LOC: ED 11:41 → 2S 14:22 → SUATTDRO 14:22 → 2S 14:46

== ENCOUNTER 2020-03-23 07:15 | Observation (INO) ==
[2020-03-23] MEDS ORDERED: SODIUM CHLORIDE 0.9% 500 ML IV ONE (07:32)
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
[2020-03-23] MEDS ORDERED: OPTIRAY 320 125ml IV ONE (07:49)
[2020-03-23 07:50] LABS: Eosinophils # (auto) 0.43 K/uL (0-0.5); Eosinophils % (auto) 8.7 %; Hematocrit (blood only) 36.7 % (37-47); Hemoglobin 12.5 g/dL (12.0-16.0); Lymphocytes # (auto) 1.41 K/uL (1.2-3.4); Lymphocytes % (auto) 28.4 %; Mean Corpuscular Hemoglobin 31.3 pg (25-34); Mean Corpuscular Hgb Conc 34.1 g/dL (32-36); Mean Corpuscular Volume 91.8 fL (80-100); Mean Platelet Volume 10.2 fL (7.4-10.4); Monocytes # (auto) 0.63 K/uL (0.11-0.59); Monocytes % (auto) 12.7 %; Neutrophils % (auto) 48.2 %; Platelet Count 213 K/uL (130-400); RDW Coefficient of Variation 14.4 % (11.5-14.5); RDW Standard Deviation 48.3 fL (36.4-46.3); White Blood Count 4.97 K/uL (4.8-10.8)
[2020-03-23 08:00] LABS: INR 2.3 (0.9-1.1); Partial Thromboplastin Ratio 1.4; Partial Thromboplastin Time 37.3 Seconds (21.0-31.0); Prothrombin Time 21.7 Seconds (9.0-12.0)
[2020-03-23 08:07] LABS: Alanine Aminotransferase 26 U/L (12-78); Albumin Level 3.5 gm/dl (3.4-5.0); Aspartate Aminotransferase 21 U/L (15-37); BUN Creatinine Ratio 20.5 (10-20); Bilirubin Direct < 0.1 mg/dl (0-0.2); Blood Urea Nitrogen 17 mg/dl (7-18); Calcium 9.3 mg/dl (8.5-10.1); Carbon Dioxide 29 mmol/L (21-32); Chloride 105 mmol/L (98-107); Est GFR (African American) 74.5; Est GFR (Non-African American) 64.3; Glucose 87 mg/dl (70-99); Magnesium 2.4 mg/dl (1.8-2.4); Potassium 3.8 mmol/L (3.5-5.1); Sodium 140 mmol/L (136-145)
--- NOTE | 2020-03-23 08:15 | XRay Report ---
XR chest 1V portable CLINICAL HISTORY: Stroke Like Symptoms COMPARISON STUDY: 02/14/2019 FINDINGS: There is radiographic evidence of emphysema. There is a left subclavian dual-chamber centra l venous pacemaker. There is no failure. There is no focal pulmonary consolidation. There are no pleu ral effusions. Postsurgical changes are present within the cervical spine.[ IMPRESSION: 1. Emphysema 2. No active disease in the chest. ACT 112: Negative or not required by law. Electronically signed by: Mitchell Beth M.D. 03/23/2020 8:14 AM
[2020-03-23 08:16] LABS: Albumin Globulin Ratio 1.2 (0.9-2); Alkaline Phosphatase 172 U/L (45-117); Bilirubin,Total 0.4 mg/dl (0.2-1); Creatine Kinase 145 U/L (26-192); Phosphorus 3.5 mg/dl (2.5-4.9); Total Protein 6.5 gm/dl (6.4-8.2); Troponin I < 0.015 ng/ml (0-0.045)
[2020-03-23 08:35] LABS: Appearance Urine Clear (Clear); Bilirubin Urine Negative (Negative); Blood Urine Negative (Negative); Color Urine Yellow; Glucose Urine UA Negative (Negative); Ketones Urine Negative (Negative); Leukocyte Esterase Urine Negative (Negative); Nitrite Urine Negative (Negative); Protein Urine Negative (Negative); Specific Gravity Urine 1.011 (1.000-1.030); Urobilinogen Urine Negative (Negative); pH Urine 7.5 (4.5-7.5)
--- NOTE | 2020-03-23 08:54 | CT Scan Report ---
CT head/brain wo con CLINICAL HISTORY: 84 years-old Female with Stroke Like Symptoms. Acute strokelike symptoms TECHNIQUE: Multiple axial CT images of the head were obtained without contrast. A dose lowering tech nique was utilized adhering to the principles of ALARA. COMPARISON: CTA head and neck of same day, brain MRI 01/13/2019 FINDINGS: No acute intracranial hemorrhage, midline shift, intracranial mass, hydrocephalus, territorial ischem ia or abnormal extra-axial collection. Age-related involutional changes with ex vacuo ventriculomegal y. Extensive white matter hypodensities suggestive of chronic microvascular ischemic disease. Encepha lomalacia related to remote infarct within the right cerebellar hemisphere. Cerebral vascular calcifi cations. The calvarium is intact. Prior bilateral lens replacement. The paranasal sinuses, mastoid air cells, and middle ear cavities are clear. IMPRESSION: No acute intracranial abnormality. ACT 112: Negative or not required by law. The above report was generated using voice recognition software. It may contain grammatical, syntax o r spelling errors. Electronically signed by: Harry Garcia M.D. 03/23/2020 8:53 AM
--- NOTE | 2020-03-23 08:59 | CT Scan Report ---
CT ANGIOGRAPHY OF THE NECK WITH CONTRAST CLINICAL HISTORY: Strokelike symptoms. COMPARISON STUDY: MRA of the neck January 13, 2019. Technique: CT angiography of the carotid and vertebral arteries was obtained using [employer] 320 IV and 3D reconstruction on an independent workstation. NASCET criteria was utilized. Automated exposure c ontrol was utilized for the study. A dose lowering technique was utilized adhering to the principles of ALARA. CT DOSE: 1002.33 mGy.cm Findings: There is no cervical lymphadenopathy. Postsurgical findings within the cervical spine are n oted. There is no acute cervical spine fracture. There is mild plaque within the bilateral cervical i nternal carotid arteries without stenosis. There is no dissection within the major vessels of the nec k. The right vertebral artery is dominant and patent. No intraluminal thrombus is identified within t he vessels. The left vertebral artery is somewhat diminutive. This is unchanged. This finding is nelida enital. The CTA of the head and head CT will be reported separately. IMPRESSION: No stenosis or dissection within the major vessels of the neck. Mild atherosclerotic plaque. ACT 112: Negative or not required by law. Electronically signed by: Deepak Urias M.D. 03/23/2020 8:57 AM
--- NOTE | 2020-03-23 09:00 | CT Scan Report ---
CT angio head w con CLINICAL HISTORY: 84 years-old Female with Stroke Like Symptoms. Acute strokelike symptoms COMPARISON STUDY: Head CT and CTA neck studies of same day TECHNIQUE: Following the IV administration of 120 cc of Optiray 320, CT angiogram of the brain was pe rformed from the skull base to the vertex. Images are reviewed in the axial, sagittal, and coronal pl anes. 3-D MIPS images are created and assessed. IV contrast was administered without complication. Al l measurements were obtained according to NASCET criteria. A dose lowering technique was utilized adh ering to the principles of ALARA. FINDINGS: The imaged bilateral internal carotid arteries are patent. The middle and anterior cerebral arteries are widely patent. The imaged left vertebral artery is diminutive and terminates in the PICA. The dis mark right vertebral artery is patent. Patent basilar artery. High-grade stenosis is noted involving t he proximal aspect of the right T1 segment of the posterior cerebral artery on image 79 series 5. Fet al origin of the left posterior cerebral artery which is widely patent. The cerebral venous sinuses a re patent. There is no abnormal intracranial enhancement. IMPRESSION: 1. Focal short segment high-grade stenosis of the proximal P1 segment of the right posterior cerebral artery. 2. Otherwise unremarkable CTA of the head. ACT 112: Negative or not required by law. The above report was generated using voice recognition software. It may contain grammatical, syntax o r spelling errors. Electronically signed by: Harry Garcia M.D. 03/23/2020 8:59 AM
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
--- NOTE | 2020-03-23 13:35 | Magnetic Resonance Report ---
Brain MRI WITHOUT CONTRAST HISTORY: Sudden onset off balance TECHNIQUE: Multiplanar multisequence MRI of the brain was performed without the use of contrast. COMPARISON STUDY: Head CT 03/23/2020. Brain MRI 01/13/2019. FINDINGS: There is no mass, hematoma, midline shift, or acute infarct. The paranasal sinuses are alejandra r. The mastoid air cells are clear. The ventricles and sulci demonstrate moderate age-related involut ional changes. Scattered foci of T2 hyperintensity seen within the periventricular and subcortical wh ite matter are nonspecific but suggestive of moderate microvascular ischemic changes. The major vascu lar flow voids at the skull base are well-maintained. Old right cerebellar infarct, unchanged. IMPRESSION: No significant change compared to the prior study. No acute intracranial abnormality. Atrophy and mod erate microvascular ischemic changes again noted. ACT 112: Negative or not required by law. Electronically signed by: Brenton Kumar M.D. 03/23/2020 1:34 PM
--- NOTE | 2020-03-23 13:52 | Magnetic Resonance Report ---
CERVICAL SPINE MRI HISTORY: Sudden onset loss of balance. ?cervical spinal stenosis TECHNIQUE: Multiplanar multisequence MRI of the cervical spine was performed without the use of contr ast. COMPARISON STUDY: CTA neck 03/23/2020. FINDINGS: Slight reversal of the normal lordotic curvature. No fracture or subluxation. Mild disc spa ce narrowing at C3-C4, C4-C5: C7-T1. Postoperative changes consistent with prior C5-C7 ACDF. Preverte bral soft tissues and the C1-C2 interval are intact. Severe right-sided facet osteoarthritis at C3-C4 with surrounding soft tissue edema. Fusion of the left C4-C5 facets. Mild to moderate facet degenera tive changes throughout the remaining cervical spine. Small focus of cord atrophy and increased signa l at the C5-C6 disc space level. This favors chronic myelomalacia from the degenerative change. Remai adam cervical spinal cord demonstrates a normal signal intensity. C2-C3: Tiny focal central annular tear. No disc herniations. Mild left-sided neural foraminal narrowi ng due to the facet hypertrophy. No significant central canal narrowing. C3-C4: Broad-based posterior disc bulge with a focal central annular tear. In conjunction with the fa cet hypertrophy there is moderate central canal and severe bilateral neural foraminal narrowing. The central canal measures an AP diameter of 6 mm. C4-C5: No significant central canal or right-sided neural foraminal narrowing. There is severe left-s ided neural foraminal narrowing. C5-C6: Small focal central bony protrusions as osteophyte which abuts and deforms anterior cord. Kaufman tana, there is no significant central canal narrowing. There is severe right and mild left neural fora brinda narrowing. C6-C7: No significant central canal narrowing. There is moderate right and mild left neural foraminal narrowing. C7-T1: Tiny broad-based posterior disc bulge without significant central canal narrowing. There is mi ld bilateral neural foraminal narrowing. IMPRESSION: 1. No fractures or subluxation within the cervical spine. 2. Prior C5-C7 ACDF. 3. Focal area of myelomalacia at the C5-C6 spinal cord. This is likely due to chronic degenerative ch taco. 4. Multilevel central canal and neural foraminal narrowing as described above. This is most pronounce d at the C3-C4 level which demonstrates moderate central canal narrowing. ACT 112: Negative or not required by law. Electronically signed by: Brenton Kumar M.D. 03/23/2020 1:51 PM
[2020-03-23] MEDS ORDERED: FEXOFENADINE HCL 180 MG TAB PO PRN (13:57)
[2020-03-23] MEDS ORDERED: PHARMACIST DISCHARGE MED REC CONSULT PRN (13:57)
[2020-03-23] MEDS ORDERED: ALUMINUM/MAGNESIUM SUSP 30 ML UDC PO PRN (13:57)
[2020-03-23] MEDS ORDERED: ONDANSETRON INJ 2 MG/ML 2 ML VIAL IV PRN (13:57)
[2020-03-23] MEDS ORDERED: ACETAMINOPHEN 325 MG TAB PO PRN (13:57)
[2020-03-23] MEDS ORDERED: POLYETHYLENE (MIRALAX) 17 GM PACK PO PRN (13:57)
[2020-03-23] MEDS ORDERED: SENNA 8.6 MG TAB PO SCH (16:30)
[2020-03-23] MEDS ORDERED: WARFARIN SOD 5 MG TAB PO SCH (16:30)
[2020-03-23] MEDS: CEROVITE ADV FORMULA TAB PO SCH (17:23)
[2020-03-23] MEDS ORDERED: ARTIFICIAL TEARS OP OINT 3.5 GM TUBE OP SCH (21:00)
[2020-03-24 05:52] LABS: Basophils # (auto) 0.14 K/uL (0-0.2); Basophils % (auto) 3.1 %; Eosinophils % (auto) 8.7 %; Hematocrit (blood only) 39.5 % (37-47); Hemoglobin 13.2 g/dL (12.0-16.0); Lymphocytes # (auto) 1.16 K/uL (1.2-3.4); Lymphocytes % (auto) 25.3 %; Mean Corpuscular Hemoglobin 30.7 pg (25-34); Mean Corpuscular Hgb Conc 33.4 g/dL (32-36); Mean Corpuscular Volume 91.9 fL (80-100); Mean Platelet Volume 10.7 fL (7.4-10.4); Monocytes # (auto) 0.64 K/uL (0.11-0.59); Neutrophils # (auto) 2.24 K/uL (1.4-6.5); Neutrophils % (auto) 48.9 %; Platelet Count 226 K/uL (130-400); RDW Coefficient of Variation 14.4 % (11.5-14.5); RDW Standard Deviation 47.8 fL (36.4-46.3); White Blood Count 4.58 K/uL (4.8-10.8)
[2020-03-24 05:59] LABS: INR 2.1 (0.9-1.1); Prothrombin Time 20.5 Seconds (9.0-12.0)
--- NOTE | 2020-03-24 06:03 | Electrocardiogram Report ---
Test Reason : Blood Pressure : / mmHG Vent. Rate : 068 BPM Atrial Rate : 068 BPM P-R Int : 172 ms QRS Dur : 170 ms QT Int : 478 ms P-R-T Axes : 074 -81 092 degrees QTc Int : 508 ms Atrial-sensed ventricular-paced rhythm Abnormal ECG When compared with ECG of 13-FEB-2019 11:56, Electronic ventricular pacemaker has replaced Junctional rhythm Vent. rate has increased BY 24 BPM Confirmed by Adonay Judge ([id number]) on 03/24/2020 6:03:33 AM Referred By: REFERRED SELF Confirmed By:Adonay Judge
[2020-03-24 06:23] LABS: BUN Creatinine Ratio 22.8 (10-20); Calcium 8.9 mg/dl (8.5-10.1); Creatinine Clr Calc Pharmacy 37.4 ml/min; Est GFR (African American) 73.4; Est GFR (Non-African American) 63.4
[2020-03-24] MEDS ORDERED: LIOTHYRONINE SODIUM 5 MCG TAB PO SCH (06:30)
[2020-03-24] MEDS ORDERED: valACYclovir HCL 500 MG TABLET PO SCH (06:30)
[2020-03-24] MEDS ORDERED: PANTOprazole 40 MG TAB PO SCH (06:30)
[2020-03-24] MEDS ORDERED: dilTIAZem HCL 240 MG CAPCR PO SCH (06:30)
[2020-03-24] MEDS ORDERED: LEVOTHYROXINE SODIUM 50 MCG TABLET PO SCH (06:30)
[2020-03-24 07:24] LABS: Estimated Average Glucose 123 mg/dl; Hemoglobin A1C 5.9 % (4.5-5.6)
[2020-03-24] MEDS: CEROVITE ADV FORMULA TAB PO SCH (08:08)
[2020-03-24] MEDS ORDERED: POTASSIUM CHLORIDE 10 MEQ TABCR PO SCH (09:00)
[2020-03-24] MEDS ORDERED: VITAMIN B COMPLEX TAB PO SCH (09:00)
[2020-03-24] MEDS ORDERED: FLUTICASONE/VILANTEROL 200/25MCG 14 PUFFS/INHALER INH SCH (09:00)
[2020-03-24] MEDS ORDERED: MAGNESIUM OXIDE 400 MG TAB PO SCH (09:00)
[2020-03-24] MEDS ORDERED: CHOLECALCIFEROL 1,000 UNITS 25 MCG TAB PO SCH (09:00)
[2020-03-24] MEDS ORDERED: VENLAFAXINE HCL XR 37.5 MG CAPXR PO SCH (09:00)
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
--- NOTE | 2020-03-24 11:55 | Discharge Summary ---
Date of Service March 24, 2020 Admission HPI Per Admitting Provider Mrs. Siddiqui is an 84 year old female with a history of a Prior Cerebellar CVA, Complete Heart Block s/p [employer] [place] XT DR MRI Dual Chamber Pacemaker, Paroxysmal Atrial Tachycardia, Paroxysmal Atrial Fibrillation, Hypertension, Anemia, Asthma, Hyperlipidemia, Cerebrovascular Disease, Arthritis, GERD, Hypothyroidism, Depression, Hemifacial Spasm, Mild AI, Mild Mitral Regurgitation, and Mild Tricuspid Regurgitation who presents to [facility] today with complaints of Imbalance and Difficulty Walking. She has been feeling in her usual state of health leading up to the onset of these symptoms, and felt well when she went to bed last night. However, when she awakened this morning at 0330 to use the bathroom, she did not feel normal when she initially sat up, feeling off balance but she denies any sensation of vertigo. She was more symptomatic upon standing and felt as though she was "a balloon drifting". This made it difficult to initiate her first steps when she tried to walk down a narrow hallway to the bathroom. She was able to get to the bathroom and back to her bed -- but she was taking only short steps and balancing herself with her hands against both galeano of the hallway. She went back to sleep and when she awoke again at 0600 these symptoms returned and were worse. Patient is mildly symptomatic when she goes from lying to sitting, and more so when she stands up. She doesn't note symptoms if she rolls over in bed or turns her head. She denies any recent falls or head trauma. She denies any focal weakness, numbness, tingling, or paralysis of any extremities. She denies any hearing loss or tinnitus. She denies any visiual disturbance, specifically denying any blind spots, black spots, loss of visual wynn, or any dimming or fogging in either eye. She denies any vomiting, but was feeling that her "stomach was mildly upset this morning" so she skipped breakfast. She denies any lightheadedness or syncope. She denies any chest pain, discomfort, or dyspnea. She denies any palpitations or tachy-palpitations. She has not had any recent A-Fib to her knowledge. She denies any urinary frequency, urgency, or dysuria. No fevers or chills. She denies any confusion. Interestingly, she has a history of Cervical Spinal Stenosis s/p Surgical Intervention on C5-C6 and C6-C7 12/12/2010. Her current symptoms are mimicking symptoms that she had back then. Her diet and fluid intake has been stable. No recent dietary or medication changes. She received her first coronavirus vaccine 3 weeks ago and was scheduled to have her next injection today. No significant side effects with the 1st dose. Admission Exam Per Admitting Provider GENERAL: Patient in no acute distress. HEENT: Head is atraumatic, normocephalic. EOM's intact without nystagmus. Sclerae anicteric. Facies symmetric. No perioral cyanosis. NECK: No JVD. JVP is not elevated. Carotid upstrokes are + 2 bilaterally without obvious bruits. CHEST/LUNGS: Clear to auscultation throughout all lung wynn. No wheezes, rales, or crackles. CVS: S1 and S2 are regular with a grade 2/6 apical holosystolic murmur heard at the apex and left sternal border. No diastolic murmurs appreciated. No gallops or rubs. PMI is nondisplaced. No lifts, heaves, or thrills. No abdominal aortic or renal bruits. Palpable pacemaker generator is present in the left subclavian fossa. ABDOMINAL EXAM: Bowel sounds are present. No masses, organomegaly, or tenderness. EXTREMITIES: No clubbing or cyanosis. No edema. Intact posterior tibial and radial pulses bilaterally. NEUROLOGIC EXAM: Patient is awake, alert, and oriented. Pleasant and cooperative. Answers questions appropriately. Speech is clear. Normal movement in all 4 extremities. 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 MMT of the major muscle groups of the upper and lower extremities is normal and symmetric. DTR's are brisk but bilaterally symmetric. Gait was not assessed. Principal Diagnosis Imbalance Discharge Exam Constitutional WD/WN, vitals as above cooperative; no acute distress Eyes + anicteric sclerae and + nystagmus (2 beats of horizontal ) ENMT external ear and nose normal, oropharynx normal Neck trachea midline and + tracheal deviation Respiratory normal respiratory effort, lungs clear to auscultation Cardiovascular Rate/Rhythm: regular rate and regular rhythm Heart Sounds: normal S1, normal S2 and + murmur (systolic ejection ) Gastrointestinal (Abdomen) normal bowel sounds, soft, nontender, no hepatosplenomegaly Skin no rashes, warm and dry Neurologic CN's II-XI intact bilaterally and moves all extremities; + abnormal deep tendon reflexes (brisk reflexes ) and no focal motor deficits Motor/Sensory: no tremor Coordination: + abnormal cytt-hd-jugs test (More difficult on R ) Psychiatric A+Ox3, euthymic affect Discharge Data Allergies Allergy/AdvReac Type Severity Reaction Status Date / Time codeine Allergy Intermediate VOMITTING Verified 03/23/20 07:49 COFFEE GROUNDS latex Allergy Mild Rash Verified 03/23/20 07:49 Penicillins Allergy Mild RASH Verified 03/23/20 07:49 Sulfa (Sulfonamide Allergy Mild RASH Verified 03/23/20 07:49 Antibiotics) Consultations 03/23/20 10:19 ED Decision to Admit Stat 03/23/20 13:57 Consult Case Management - Discharge Planning Routine Consult Neurology Routine 03/23/20 15:45 Consult Orthopedic Surgery Routine Ordered Studies 03/23/20 07:32 CT angio head w con Stat CT angio neck with con Stat CT head/brain wo con Stat 03/23/20 11:00 MR brain wo con Routine 03/23/20 11:41 MR cervical spine wo con Routine Hospital Course (1) Stroke-like symptoms: Mrs. Siddiqui is an 84 yo woman with a PMHx of a right cerebellar stroke who presented for evaluation of an acute worsening of her chronic imbalance. Imbalance: Symptoms spontaneously improved overnight - patient was able to ambulate without difficulty in the morning. Stroke work up was ordered, which no evidence of an acute hemorrhagic or ischemic stroke (although TIA could not be definitively ruled out). Patient denied sensation of room spinning, tinnitus, or associated nausea/vomiting - thus vertigo was felt to be unlikely. MRI of the cervical spine did show evidence of cervical myelopathy at C5-C6. Patient did report neck pain in the days preceding admission, as well as an intentional habit of sleepin g only on the her left side at night. Patient reported she does so in an effort to help "reduce her acid reflux." Sleeping in a new (hospital) bed overnight and on her RIGHT side coincided with resolution of symptoms. Thus, suspect transient imbalance was related to cervical myelopathy. Recommend patient refrain from intentionally sleeping on one side at night. She may also benefit from a course of physical therapy and/or osteopathic manipulation therapy. Outpatient items to do : consider ordering PT course for cervical myelopathy or referral for OMT Hx of Cerebral Vascular Disease: Patient with known ischemic stroke in R cerebellum. Lipid panel obtained during hospital stay showed total cholesterol of 232, an LDL of 138, HDL of 83, and a ratio of 3. Goal LDL for Mrs. Siddiqui would be < 70. Of note, she is not on a statin. Outpatient items to do: consider initiating a high-intensity statin to address dyslipidemia and for plaque stabilization benefit Gastroesophageal reflux disease: Patient is on Omeprazole 20mg, daily. She is intentionally sleeping on her only on her left side at night in the an effort to reduce reflex symptoms. Recommend against further restrictive sleeping positions due to her concurrent cervical myelopathy. Suggest she sleep on her back, or alternate from R to L sides. If this subsequently causes a symptomatic worsening of her GERD, consider titrating medication regimen and avoiding trigger foods. However, she denies experiencing any heartburn or epigastric pain recently. Total Time Total Time Spent Total Time Spent (In Minutes): Less than 30 Discharge Plan Discharge Items Patient Disposition: Personal Custodial Reason For Visit: STROKE LIKE SYMPTOMS Discharge Diagnosis: Imbalance Activity: Resume your previous activity Non-emergency contact: Primary Care Provider and Neurologist Call non-emergency contact if: your symptoms worsen Follow-up/Referrals: Carlos Ba MD [Primary Care Provider] - Diet: Heart Healthy Addtl Attending Provider Instructions: You were hospitalized at [facility] for a sensation of imbalance with walking. Your blood work was totally normal (no evidence of infection or anemia). Cat scans of your head and neck were ordered, as was a brain MRI - fortunately, no new strokes were identified. An echocardogram, or ultrasound of your heart was ordered, which normal function pumping function - it did show evidence of mild valvular disease (although this is likely age- related "wear and tear") and likely unrelated to your imbalance. Upon waking up this morning - you reported feeling much better - you were able to walk with the aid of you walker without issue. When discussing the possible causes of your symptoms, one thought was that it was a TIA or transient ischemic attack (also known as a mini-stroke). Because they leave no trace on imaging (and not permanent defect on the body) - TIAs are impossible to "prove," or to identify with concrete evidence. However, felt to be more likely is that the compression of nerves in your neck (visualized on the MRI of your cervical spine) caused your head to tilt to to one size - altering your sense of balance. This condition is known as a cervical myelopathy. Your report of neck pain over the days preceding admission is consistent with this theory. You informed us of an intentional habit of sleeping on your left side due to your acid reflux. Repeatedly sleeping on one side likely worsened the compression of nerves in your neck - resulting in worse neck pain and a subtle shift in your neck position and gaze. Last night, you slept on your right side, and your symptoms improved! This further implicates your neck as the cause of your symptoms. We recommend you avoid sleeping solely on one side in the future to reduce the strain on your neck. If your acid reflux subsequently worsens, your acid-blocking medication regimen can be adjusted to provide further control. Neurology was consulted during your hospital stay - who also felt as though your symptoms were likely secondary to the nerve compression in your neck. Options for treatment include physical therapy or Osteopathic Manipulation Therapy - which is performed by a doctor of osteopathic medicine (different from chiropractor). Several physicians at [facility] perform OMT - if you desire this therapy, ask for: Dr Daniel Messina DO, [address], [address], , as does Dr Yuan Lezama DO of [facility], [phone]. Near [facility] as a chiropractor who is also excellent is Dr Soto of [facility], [address] [place] [address] Drive [phone]. As an aside, we checked your cholesterol while you were in the hospital, and it was slightly high. On review of your medication list, we noticed you are not currently taking a medication to lower your cholesterol. In patients who have history of strokes (such as yourself), we typically recommend treating with a strong cholesterol lowering medication. Please discuss this with your primary care provider at next visit. Please follow-up with your primary care provider within 1 week of hospital discharge. Pending Studies at Discharge: No Stand-Alone Forms: My [facility], Smoking Cessation Skilled Items Patient informed of condition?: Yes DNR: No Discharge Level of Care: Other Communicable Disease: No Discharge Prognosis: Stable Lines: None Urinary Catheter: No Medications and DC Order Prescriptions: Continued venlafaxine 37.5 mg capsule,extended release 24hr 37.5 mg PO QAM RF: 0 magnesium oxide 400 mg magnesium Tablet 400 mg PO QAM RF: 0 fluticasone propion-salmeterol [Advair Diskus] 250-50 mcg/dose Blister With Device 1 inh INHALATION Q12H RF: 0 diltiazem HCl [Cardizem CD] 240 mg Capsule,Extended Release 24hr 240 mg PO DAILYBB RF: 0 potassium chloride 10 mEq Tablet Extended Release 10 meq PO QAM RF: 0 fexofenadine [Trixie Allergy] 180 mg Tablet 180 mg PO DAILY PRN (Reason: ALLERGY RELIEF) RF: 0 valacyclovir 500 mg Tablet 500 mg PO DAILYBB RF: 0 liothyronine 5 mcg Tablet 5 mcg PO DAILYBB RF: 0 levothyroxine 50 mcg Tablet 50 mcg PO MOTUWETHFRSA RF: 0 albuterol sulfate [ProAir HFA] 90 mcg/actuation Hfa Aerosol Inhaler 2 puff INHALATION QID PRN (Reason: SHORT OF BREATH) RF: 0 cholecalciferol (vitamin D3) [Vitamin D3] 1,000 unit Capsule 1,000 unit PO QAM RF: 0 omeprazole 20 mg Tablet,Delayed Release (Dr/Ec) 20 mg PO DAILYBB RF: 0 PreserVision AREDS [id number] Tablet 1 tab PO BIDM RF: 0 Lotemax 0.5 % Drops,Gel 1 drp OPR HS RF: 0 sennosides [senna] 8.6 mg Tablet 8.6 mg PO QDD RF: 0 warfarin 5 mg tablet 5 mg PO QDD RF: 0 vitamin B complex Tablet 1 tab PO QAM RF: 0 Lubricant Eye (cmc-glycerin) 0.5-0.9 % Drops 1 drp OPL HS RF: 0 Discharge Orders: Discharge Order (Routine); Ordered 03/24/20 Ordered By: Param Perkins Admission Data Admit Date/Time: 03/23/20 11:00 Attending Provider: Param Perkins Admit Provider: Andreas Gutierrez Primary Care Provider: Carlos Ba Other Providers: Andreas Gutierrez ; Albert Ugarte ; Breezy Coon Supervising Physician Co-Signing Physician Notes I personally examined the patient and verified all garcia points of history and exam, discussed case, and agree with decision making with Dr Castro. Feeling better. Slept on her other side. No unsteadiness. Asks a lot of good questions, which were answered to the best my ability and to her satisfaction. Feels up to going home. Vitals noted, in general she is awake and alert pleasant no distress. HEENT normocephalic atraumatic mucous membranes moist. Musculoskeletal shows a curvature of her body habitus associated with scoliosis. Neuro shows no acute focal deficits. Skin shows no rashes no pallor or icterus. Exam otherwise as above. Unsteadinessagree with neurology that it would be impossible to rule out a cerebellar TIA, but certainly that does not seem likely given the rest of her symptoms. As it relates to her cerebrovascular disease, I would ask her PCP to consider risk-benefit of a moderate intensity statin simply due to her prior strokebut I will absolutely defer to him given that he knows her situation much betterand it may be that her stroke was purely embolic in which case a statin would not be of any real benefit. As it relates to her actual unsteadiness, I agree that it seems most likely to be driven by her neck, especially given that it seems that that is been worse recently and she has been recently laying on her side because she believes she was instructed to do so for her GERD. Interestingly she has not had reflux symptoms in about as long as she can remember. She is feeling better now, and certainly stable for home. We discussed watchful waiting versus intervention. At this point should she want anything done a noninvasive approach seems to make the most senseeither with OMT with a good DO, or manipulative medicine with good chiropractor. Recommendations were given verbally and in writing for who would likely serve her well in this capacity. She can discuss this further with her PCPand we discussed really only needing to go down this road if she has ongoing symptoms over the next few days. Otherwise stable for home. Aileen was laying on her left side because she believes somebody told her that would be better for her GERD. In asking her about symptoms she actually has none, noting that being on a calcium channel josue she realizes that would relax her esophagus and possibly lower esophageal sphincter making her more prone to GERD, but when actually asking her about how often she has symptoms she really cannot recall having any reflux symptoms whatsoever. I discussed that she really would be better served sleeping on what ever position she is comfortable, and after a month of sleeping however she is comfortable, if she still not having any reflux symptoms she can discuss with her PCP about even coming off of her PPI. Otherwise stable for home. Otherwise as above. Resident Activity Tracking Resident Involvement: Resident Care Provided Care Provided: Adult Hospital Medicine
[2020-03-24] MEDS ORDERED: STROKE PATIENT DISCHARGE STA (12:55)
--- NOTE | 2020-03-24 13:04 | Billing Data ---
Date of Service March 24, 2020 Coding Level of Care Code 91828 OBS Care - Discharge
[2020-03-24] MEDS ORDERED: LOTEPREDNOL 0.5% OP SCH (21:00)
[2020-03-24] MEDS ORDERED: EYE OP SCH (21:00)
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
== END 2020-03-24 14:35 | disposition home or self-care (01) ==
LOC: ED 07:15 → 2N 07:15 → SUATTDRO 11:00 → 2N 12:08

== ENCOUNTER 2020-08-31 20:59 | Inpatient (IN) ==
[2020-08-31] MEDS ORDERED: fentaNYL citrate 100 MCG/2 ML VIAL IV STA (21:40)
[2020-08-31 22:14] LABS: Basophils # (auto) 0.08 K/uL (0-0.2); Basophils % (auto) 1.5 %; Eosinophils % (auto) 7.6 %; Hematocrit (blood only) 35.1 % (37-47); Hemoglobin 11.8 g/dL (12.0-16.0); Immature Granulocytes # (auto) 0.01 K/uL (0.00-0.02); Immature Granulocytes % (auto) 0.2 %; Lymphocytes # (auto) 1.46 K/uL (1.2-3.4); Lymphocytes % (auto) 27.7 %; Mean Corpuscular Hemoglobin 30.8 pg (25-34); Mean Corpuscular Hgb Conc 33.6 g/dL (32-36); Mean Corpuscular Volume 91.6 fL (80-100); Monocytes # (auto) 0.69 K/uL (0.11-0.59); Monocytes % (auto) 13.1 %; Neutrophils # (auto) 2.64 K/uL (1.4-6.5); Neutrophils % (auto) 49.9 %; Platelet Count 202 K/uL (130-400); RDW Coefficient of Variation 15.1 % (11.5-14.5); RDW Standard Deviation 50.1 fL (36.4-46.3); Red Blood Count 3.83 M/uL (4.2-5.4); White Blood Count 5.28 K/uL (4.8-10.8)
[2020-08-31 22:22] LABS: INR 2.2 (0.9-1.1)
[2020-08-31 22:35] LABS: Albumin Level 3.6 gm/dl (3.4-5.0); BUN Creatinine Ratio 26.7 (10-20); Calcium 8.3 mg/dl (8.5-10.1); Creatinine Clr Calc Pharmacy 35.4 ml/min; Est GFR (African American) 68.1 ml/min; Est GFR (Non-African American) 58.7 ml/min
[2020-08-31 22:38] LABS: Albumin Globulin Ratio 1.3 (0.9-2); Bilirubin,Total 0.3 mg/dl (0.2-1); Globulin 2.7 gm/dl (2.5-4.0); Total Protein 6.3 gm/dl (6.4-8.2)
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
[2020-08-31] MEDS ORDERED: PHYTONADIONE 5 MG in SODIUM CHLORIDE 0.9% 50 ML IV STA (23:28)
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
[2020-09-01] MEDS ORDERED: HYDROmorphone INJ 0.5 MG/0.5 ML SYR ONE ×2 (00:17→03:52)
[2020-09-01] MEDS ORDERED: HYDROmorphone INJ 0.5 MG/0.5 ML SYR IM ONE (00:20)
[2020-09-01 02:04] LABS: Appearance Urine Clear (Clear); Bacteria Urine Automated Negative (Negative); Bilirubin Urine Negative (Negative); Blood Urine Trace (Negative); Cast Urine Automated 0 /lpf (0-5); Color Urine Yellow; Glucose Urine UA Negative (Negative); Ketones Urine Negative (Negative); Leukocyte Esterase Urine Negative (Negative); Nitrite Urine Negative (Negative); Protein Urine Negative (Negative); RBC Urine Automated 0-4 /hpf (0-4); Specific Gravity Urine 1.018 (1.000-1.030); Urobilinogen Urine Negative (Negative); pH Urine 5.5 (4.5-7.5)
[2020-09-01 02:19] LABS: Calcium Oxalate Crystals Urine Present (None Prsent)
[2020-09-01] MEDS ORDERED: HYDROmorphone INJ 0.5 MG/0.5 ML SYR IV PRN (03:46)
[2020-09-01] MEDS ORDERED: FEXOFENADINE HCL 180 MG TAB PO PRN (03:46)
[2020-09-01] MEDS ORDERED: MAGNESIUM HYDROXIDE SUSP 30 ML UDC PO PRN (03:46)
[2020-09-01] MEDS ORDERED: bisacodyL 10 MG SUPP PR PRN (03:46)
[2020-09-01] MEDS ORDERED: ONDANSETRON INJ 2 MG/ML 2 ML VIAL IV PRN (03:46)
[2020-09-01] MEDS ORDERED: HYDROCODONE/ACETAMOPHEN 5/325MG TAB PO PRN (03:46)
[2020-09-01] MEDS ORDERED: NALOXONE HCL 0.4 MG/1 ML VIAL/CARP IV PRN (03:46)
[2020-09-01] MEDS: HYDROmorphone INJ 0.5 MG/0.5 ML SYR IV PRN (03:55)
[2020-09-01] MEDS: LACTATED RINGER'S 1,000 ML IV SCH ×2 (03:55→16:33)
[2020-09-01] MEDS: dilTIAZem HCL 240 MG CAPCR PO SCH (06:04)
[2020-09-01] MEDS: PANTOprazole 40 MG TAB PO SCH (06:04)
[2020-09-01] MEDS: LEVOTHYROXINE SODIUM 50 MCG TABLET PO SCH (06:04)
[2020-09-01] MEDS: LIOTHYRONINE SODIUM 5 MCG TAB PO SCH (06:04)
[2020-09-01] MEDS: valACYclovir HCL 500 MG TABLET PO SCH (06:04)
--- NOTE | 2020-09-01 06:42 | CT Scan Report ---
CT head/brain wo con CLINICAL HISTORY: 85 years-old Female with fall hit head. Acute head injury status post fall TECHNIQUE: Multiple axial CT images of the head were obtained without contrast. A dose lowering tech nique was utilized adhering to the principles of ALARA. CT DOSE: 1074.96 mGy.cm COMPARISON: Head CT 03/23/2020 FINDINGS: No acute intracranial hemorrhage, midline shift, intracranial mass, hydrocephalus, territorial ischem ia or abnormal extra-axial collection. Age-related involutional changes with ex vacuo ventriculomegal y. White matter hypodensities suggestive of chronic microvascular ischemic disease. Chronic infarct o f the right cerebellar hemisphere. The calvarium is intact. Prior bilateral lens repair. The paranasal sinuses, mastoid air cells, and m iddle ear cavities are clear. IMPRESSION: No acute intracranial abnormality. ACT 112: Negative or not required by law. The above report was generated using voice recognition software. It may contain grammatical, syntax o r spelling errors. Electronically signed by: Elijah Garcia M.D. 09/01/2020 6:40 AM
--- NOTE | 2020-09-01 07:07 | XRay Report ---
XR hip LT 2V w pelvis HISTORY: 85 years-old Female fall, pain acute left hip pain status post fall COMPARISON: 12/02/2018 TECHNIQUE: Portable AP view the pelvis with crosstable lateral view of the left hip FINDINGS: Degenerative changes of the imaged lumbar spine. Demineralized appearance of the bones. Mild osteoart hritis of the hips. There is an acute transcervical fracture of the left proximal femur which demonst rates mild impaction. There is approximately 1.5 cm superior displacement and 1.5 cm volar displaceme nt. No dislocation. IMPRESSION: Acute mildly displaced transcervical fracture of the left femur ACT 112: Negative or not required by law. The above report was generated using voice recognition software. It may contain grammatical, syntax o r spelling errors. Electronically signed by: Elijah Garcia M.D. 09/01/2020 7:05 AM
--- NOTE | 2020-09-01 07:20 | XRay Report ---
XR chest 1V portable HISTORY: 85 years-old Female fall acute chest trauma status post fall COMPARISON: Chest radiograph 03/23/2020 TECHNIQUE: Portable supine AP view of the chest FINDINGS: Cardiac silhouette is enlarged. Left subclavian pacer. Calcified plaque the thoracic aorta. The patie nt is rotated towards the left. No pneumothorax, pleural effusion, airspace consolidation or overt pu lmonary edema. Emphysema with chronic interstitial coarsening. Degenerative changes of the shoulders and spine. Lower cervical spinal fusion hardware. IMPRESSION: Emphysema without acute process. ACT 112: Negative or not required by law. The above report was generated using voice recognition software. It may contain grammatical, syntax o r spelling errors. Electronically signed by: Elijah Garcia M.D. 09/01/2020 7:19 AM
[2020-09-01 07:56] LABS: Basophils # (auto) 0.03 K/uL (0-0.2); Basophils % (auto) 0.4 %; Eosinophils # (auto) 0.22 K/uL (0-0.5); Eosinophils % (auto) 2.7 %; Hematocrit (blood only) 35.1 % (37-47); Hemoglobin 11.4 g/dL (12.0-16.0); Immature Granulocytes # (auto) 0.01 K/uL (0.00-0.02); Immature Granulocytes % (auto) 0.1 %; Lymphocytes # (auto) 1.12 K/uL (1.2-3.4); Lymphocytes % (auto) 13.8 %; Mean Corpuscular Hemoglobin 29.8 pg (25-34); Mean Corpuscular Hgb Conc 32.5 g/dL (32-36); Mean Corpuscular Volume 91.6 fL (80-100); Mean Platelet Volume 10.2 fL (7.4-10.4); Monocytes # (auto) 0.85 K/uL (0.11-0.59); Monocytes % (auto) 10.5 %; Neutrophils # (auto) 5.88 K/uL (1.4-6.5); Neutrophils % (auto) 72.5 %; Platelet Count 167 K/uL (130-400); RDW Coefficient of Variation 15.1 % (11.5-14.5); RDW Standard Deviation 50.6 fL (36.4-46.3); Red Blood Count 3.83 M/uL (4.2-5.4); White Blood Count 8.11 K/uL (4.8-10.8)
[2020-09-01 08:12] LABS: INR 1.5 (0.9-1.1); Partial Thromboplastin Ratio 1.2; Partial Thromboplastin Time 32.2 Seconds (21.0-31.0); Prothrombin Time 15.2 Seconds (9.0-12.0)
[2020-09-01 08:25] LABS: Albumin Level 3.3 gm/dl (3.4-5.0); BUN Creatinine Ratio 24.1 (10-20); Calcium 8.1 mg/dl (8.5-10.1); Creatinine Clr Calc Pharmacy 45.6 ml/min; Est GFR (African American) 92.2 ml/min; Est GFR (Non-African American) 79.6 ml/min; Potassium 3.6 mmol/L (3.5-5.1)
--- NOTE | 2020-09-01 08:27 | Electrocardiogram Report ---
Test Reason : Blood Pressure : / mmHG Vent. Rate : 060 BPM Atrial Rate : 060 BPM P-R Int : 186 ms QRS Dur : 170 ms QT Int : 520 ms P-R-T Axes : 092 -84 088 degrees QTc Int : 520 ms AV dual-paced rhythm Abnormal ECG When compared with ECG of 23-MAR-2020 07:31, Vent. rate has decreased BY 8 BPM Confirmed by Jonathan Franz ([id number]) on 09/01/2020 8:26:55 AM Referred By: Edmond Matamoros Confirmed By:Jonathan Franz
[2020-09-01 08:28] LABS: Albumin Globulin Ratio 1.1 (0.9-2); Bilirubin,Total 0.5 mg/dl (0.2-1); Globulin 2.9 gm/dl (2.5-4.0); Total Protein 6.2 gm/dl (6.4-8.2)
[2020-09-01] MEDS: FLUTICASONE/VILANTEROL 100/25MCG 14 PUFFS/INHALER INH SCH (08:44)
[2020-09-01] MEDS: VENLAFAXINE HCL XR 75 MG CAPXR PO SCH (08:44)
[2020-09-01] MEDS: POTASSIUM CHLORIDE 10 MEQ TABCR PO SCH (08:44)
[2020-09-01] MEDS: CEROVITE ADV FORMULA TAB PO SCH ×2 (08:45→16:36)
[2020-09-01] MEDS: VITAMIN B COMPLEX TAB PO SCH (08:45)
[2020-09-01] MEDS: LOTEMAX~ORDER AWAITING ACTION SCH ×2 (08:45→16:34)
[2020-09-01] MEDS: CHOLECALCIFEROL 1,000 UNITS 25 MCG TAB PO SCH (08:45)
[2020-09-01] MEDS ORDERED: ARTIFICIAL TEARS OPL PRN (13:45)
[2020-09-01] MEDS: SENNA 8.6 MG TAB PO SCH (16:36)
[2020-09-01] MEDS: DOCUSATE SODIUM/SENNA 50/8.6MG TAB PO SCH (20:16)
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
[2020-09-01] MEDS: LOTEMAX OPR SCH (23:49)
--- NOTE | 2020-09-02 00:26 | Hospitalist Progress Note ---
Date of Service September 02, 2020 Assessment & Plan (1) Closed fracture of left hip: Plan: Pathological, traumatic, osteoporotic fracture. NPO after MN tonight for OR tomorrow by [facility]. IV fluids, pain meds, etc until then. Holding coumadin, repeat INR am. Check 25-OH vit D am. Presume coumadin will serve as her post-op DVT proph. (2) Fall: Plan: mechanical fall. With resulting left hip Fx. doesn't sound like she had any other precipitating factor. could consider pacer interrogation to be complete. echo in 03/2020 with preserved EF. (3) Anticoagulated on Coumadin: Plan: Chronic anticoagulation on warfarin for paroxysmal atrial fibrillation. INR 2.2 upon admission. s/p vitamin K 5 mg IV x1 repeat INR 1.5 today suspect INR will be close to 1 by tomorrow am; repeat INR in am (4) Paroxysmal atrial fibrillation: Plan: noted cont diltiazem on chronic anticoagulation (5) Hypothyroidism: Plan: Continue levothyroxine 50 mcg daily and liothyronine 5 mcg daily TSH 1.7 in 03/2020 (6) Depression: Plan: Continue venlafaxine (7) Hypertension: Plan: Continue diltiazem CD 240 mg daily (8) Cardiac pacemaker in situ: (9) History of cerebellar stroke: (10) Asthma: (11) Hyperlipidemia: (12) Chronic kidney disease, stage 3a: Plan: baseline CrCl 40s Plan: cont LR IV hydration NPO after MN tonight labs in am including INR pain control until then Admission and Anticipated Discharge Date Admission Date: September 01, 2020 Subjective patient eating her meal upon my arrival her only complaint is that of left hip pain she distinctly remembers that her foot got caught up while walking leading to the fall didn't have prodromal chest pain, palpitations, or dizziness she denies any dyspnea, chest pain or abd pain since admission she has skin tears on left arm from her fall but can move the left arm fully without restriction denies pain in any other location is aware of plan for OR tomorrow Review of Systems Review of Systems: gen - denies fever, denies chills cardio - no chest pain, palpitations, near-syncope GI - no nausea or emesis pulm - no cough musculo - denies pains in any other joint besides L hip Physical Exam Physical Exam: gen - thin, NAD, pleasant mouth - MMM neck - no JVD heart - RRR, s1 s2 lungs - CTA b/l abd - soft NT ND BS+ ext - pulses 2+ b/l feet musculo - left leg shortened and mildly externally rotated skin - skin tears left elbow region Results & Data Results & Data ([facility]) Vital Signs (Past 12 Hours) Vital Signs Temp Pulse Pulse Resp BP BP Pulse Ox 09/02/20 00:05 62 09/01/20 22:33 37.0 C 65 16 168/67 H 96 09/01/20 19:44 37.0 C 66 18 152/73 H 98 09/01/20 15:36 36.7 C 69 18 124/71 98 09/01/20 15:27 65 Laboratory Results Laboratory Results - last 24 hr 09/01/20 09/01/20 09/01/20 01:47 07:48 07:48 WBC 8.11 RBC 3.83 L Hgb 11.4 L Hct 35.1 L MCV 91.6 MCH 29.8 MCHC 32.5 RDW Std Deviation 50.6 H RDW Coeff of Jessi 15.1 H Plt Count 167 MPV 10.2 Immature Gran % (Auto) 0.1 Neut % (Auto) 72.5 Lymph % (Auto) 13.8 [place] % (Auto) 10.5 Eos % (Auto) 2.7 Baso % (Auto) 0.4 Neut # (Auto) 5.88 Lymph # (Auto) 1.12 L [place] # (Auto) 0.85 H Eos # (Auto) 0.22 Baso # (Auto) 0.03 Immature Gran # (Auto) 0.01 PT INR APTT PTT Ratio Sodium Potassium Chloride Carbon Dioxide Anion Gap BUN Creatinine Est Cr Clr Drug Dosing Est GFR ( Amer) Est GFR (Non-Af Amer) BUN/Creatinine Ratio Glucose Calcium Total Bilirubin AST ALT Alkaline Phosphatase Total Protein Albumin Globulin Albumin/Globulin Ratio Urine Color Yellow Urine Appearance Clear Urine pH 5.5 Ur Specific [place] 1.018 Urine Protein Negative Urine Glucose (UA) Negative Urine Ketones Negative Urine Blood Trace H Urine Nitrite Negative Urine Bilirubin Negative Urine Urobilinogen Negative Ur Leukocyte Esterase Negative Urine WBC (Auto) 1-5 Urine RBC (Auto) 0-4 U Hyaline Cast (Auto) 0 U Epithel Cells (Auto) 5-10 H Urine Bacteria (Auto) Negative Urine Crystals Not Reportable Calcium Oxalate Crystal Present A Blood Type B Positive Antibody Screen NEGATIVE 09/01/20 09/01/20 07:48 07:48 WBC RBC Hgb Hct MCV MCH MCHC RDW Std Deviation RDW Coeff of Jessi Plt Count MPV Immature Gran % (Auto) Neut % (Auto) Lymph % (Auto) [place] % (Auto) Eos % (Auto) Baso % (Auto) Neut # (Auto) Lymph # (Auto) [place] # (Auto) Eos # (Auto) Baso # (Auto) Immature Gran # (Auto) PT 15.2 H INR 1.5 H APTT 32.2 H PTT Ratio 1.2 Sodium 138 Potassium 3.6 Chloride 106 Carbon Dioxide 29 Anion Gap 4.0 BUN 17 Creatinine 0.70 Est Cr Clr Drug Dosing 45.6 Est GFR ( Amer) 92.2 Est GFR (Non-Af Amer) 79.6 BUN/Creatinine Ratio 24.1 H Glucose 111 H Calcium 8.1 L Total Bilirubin 0.5 AST 24 ALT 32 Alkaline Phosphatase 154 H Total Protein 6.2 L Albumin 3.3 L Globulin 2.9 Albumin/Globulin Ratio 1.1 Urine Color Urine Appearance Urine pH Ur Specific [place] Urine Protein Urine Glucose (UA) Urine Ketones Urine Blood Urine Nitrite Urine Bilirubin Urine Urobilinogen Ur Leukocyte Esterase Urine WBC (Auto) Urine RBC (Auto) U Hyaline Cast (Auto) U Epithel Cells (Auto) Urine Bacteria (Auto) Urine Crystals Calcium Oxalate Crystal Blood Type Antibody Screen PG Care Time/CCT Total # of Minutes Spent Total Time Spent with Patient: Total time spent is greater than 50% in coordination of care (as documented) at patient's floor/unit and/or counseling patient: Coding Level of Care Code 46786 Subseq Hosp Care Lvl 2 Diagnoses Closed fracture of left hip S72.002A Encounter type: initial encounter Fall W19.XXXA Encounter type: initial encounter Anticoagulated on Coumadin Z79.01 Paroxysmal atrial fibrillation I48.0 Hypothyroidism E03.9 Depression F32.9 Hypertension I10 Cardiac pacemaker in situ Z95.0 History of cerebellar stroke Z86.73 Asthma J45.909 Hyperlipidemia E78.5 Chronic kidney disease, stage 3a N18.31 (1) Fall Encounter type: initial encounter Qualified Code(s): W19.XXXA - Unspecified fall, initial encounter (2) Closed fracture of left hip Encounter type: initial encounter Qualified Code(s): S72.002A - Fracture of unspecified part of neck of left femur, initial encounter for closed fracture
[2020-09-02] MEDS: LACTATED RINGER'S 1,000 ML IV SCH ×2 (04:48→17:26)
[2020-09-02] MEDS: HYDROmorphone INJ 0.5 MG/0.5 ML SYR IV PRN (05:57)
[2020-09-02] MEDS: LEVOTHYROXINE SODIUM 50 MCG TABLET PO SCH (06:01)
[2020-09-02] MEDS: LIOTHYRONINE SODIUM 5 MCG TAB PO SCH (06:01)
[2020-09-02] MEDS: PANTOprazole 40 MG TAB PO SCH (06:02)
[2020-09-02] MEDS: dilTIAZem HCL 240 MG CAPCR PO SCH (06:02)
[2020-09-02] MEDS: valACYclovir HCL 500 MG TABLET PO SCH (06:03)
[2020-09-02] MEDS ORDERED: BUPIVACAINE 0.5 % 5 MG/1 ML PF 10ML VIAL ONE (06:36)
[2020-09-02] MEDS: POTASSIUM CHLORIDE 10 MEQ TABCR PO SCH (07:49)
[2020-09-02] MEDS: VENLAFAXINE HCL XR 75 MG CAPXR PO SCH (07:49)
[2020-09-02] MEDS: CEROVITE ADV FORMULA TAB PO SCH ×2 (07:50→17:26)
[2020-09-02] MEDS: CHOLECALCIFEROL 1,000 UNITS 25 MCG TAB PO SCH (07:50)
[2020-09-02] MEDS: VITAMIN B COMPLEX TAB PO SCH (07:50)
[2020-09-02] MEDS: FLUTICASONE/VILANTEROL 100/25MCG 14 PUFFS/INHALER INH SCH (07:50)
[2020-09-02 07:56] LABS: Basophils # (auto) 0.05 K/uL (0-0.2); Basophils % (auto) 0.7 %; Eosinophils # (auto) 0.22 K/uL (0-0.5); Eosinophils % (auto) 2.9 %; Hematocrit (blood only) 37.9 % (37-47); Hemoglobin 12.3 g/dL (12.0-16.0); Immature Granulocytes # (auto) 0.01 K/uL (0.00-0.02); Immature Granulocytes % (auto) 0.1 %; Lymphocytes # (auto) 0.91 K/uL (1.2-3.4); Lymphocytes % (auto) 12.1 %; Mean Corpuscular Hemoglobin 29.8 pg (25-34); Mean Corpuscular Hgb Conc 32.5 g/dL (32-36); Mean Corpuscular Volume 91.8 fL (80-100); Mean Platelet Volume 11.3 fL (7.4-10.4); Monocytes # (auto) 0.89 K/uL (0.11-0.59); Monocytes % (auto) 11.8 %; Neutrophils # (auto) 5.44 K/uL (1.4-6.5); Neutrophils % (auto) 72.4 %; Platelet Count 162 K/uL (130-400); RDW Standard Deviation 50.4 fL (36.4-46.3); Red Blood Count 4.13 M/uL (4.2-5.4); White Blood Count 7.52 K/uL (4.8-10.8)
[2020-09-02 08:06] LABS: INR 1.1 (0.9-1.1); Prothrombin Time 10.8 Seconds (9.0-12.0)
[2020-09-02 08:27] LABS: BUN Creatinine Ratio 21.8 (10-20); Calcium 8.8 mg/dl (8.5-10.1); Creatinine Clr Calc Pharmacy 47.9 ml/min; Est GFR (African American) 92.6 ml/min; Est GFR (Non-African American) 79.9 ml/min; Potassium 3.9 mmol/L (3.5-5.1)
[2020-09-02] MEDS ORDERED: fentaNYL citrate 100 MCG/2 ML VIAL ONE (11:43)
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
[2020-09-02] MEDS ORDERED: fentaNYL citrate 100 MCG/2 ML VIAL IV PRN (12:13)
[2020-09-02] MEDS ORDERED: LABETALOL HCL IV 5 MG/ML 20ML IV PRN (12:13)
[2020-09-02] MEDS ORDERED: ePHEDrine sulfate 50 MG/ML AMP IV PRN (12:13)
[2020-09-02] MEDS ORDERED: ATROPINE SULFATE 0.1 MG/ML 10ML SYR IV PRN (12:13)
[2020-09-02] MEDS ORDERED: PHENYLEPHRINE 100MCG/ML 5ML SYR IV PRN (12:13)
[2020-09-02] MEDS ORDERED: ONDANSETRON INJ 2 MG/ML 2 ML VIAL IV PRN (12:13)
[2020-09-02] MEDS ORDERED: CLINDAMYCIN 600 MG/54 ML D5W IV ONE (12:29)
--- NOTE | 2020-09-02 12:31 | History & Physical Bridge Note ---
Date of Service September 02, 2020 History & Physical Bridge Note I have examined the patient, reviewed the History & Physical and in the interval since the performance of the History & Physical I have noted the following changes of clinical significance: no changes noted
[2020-09-02] MEDS ORDERED: ROPIVACAINE 0.5% HCL/PF 150 MG, BUPIVACAINE 0.75% MPF 20 ML, EPINEPHrine 0.15 MG, Ketor... INFIL ONE (13:15)
[2020-09-02] MEDS ORDERED: LIDOCAINE 2% 2 ML VIAL/AMP(20MG/ML) INFIL ONE (13:33)
[2020-09-02] MEDS ORDERED: PROPOFOL IV EMULSION 10 MG/ML 20 ML VIAL IV ONE (13:33)
[2020-09-02] MEDS ORDERED: PHENYLEPHRINE HCL 10 MG/ML VIAL ONE (13:33)
--- NOTE | 2020-09-02 14:19 | Post Operative Brief Note ---
Immediate Post Op Note v1 Date of Surgery September 02, 2020 Pre & Post Diagnosis Operation Date: 09/02/20 12:00 Pre-Op Diagnosis: CLOSED LEFT HIP FRACTURE Post-Op Diagnosis: CLOSED LEFT HIP FRACTURE I identified the patient and participated in the time-out.: Yes Procedure Operation Date: 09/02/20 12:00 Actual Procedures p Left Bipolar Hemiarthroplasty(Left) - Alexandr Rossi DO Surgeon Alexandr Rossi DO Chicken Boner Jayden Cummings Estimated Blood Loss 150 Findings Consistent with Post-Op Diagnosis Fluids See anesthesia report Anesthesia Type Spinal Complications none Disposition Disposition: Recovery Room Overlapping Procedure I was present for: the critical portions of procedure. I was immediately available: during the entire case. Back up surgeon: was not required during procedure.
--- NOTE | 2020-09-02 14:22 | Operative Report ---
Post Operative Report Pre & Post Diagnosis Operation Date: 09/02/20 12:00 Pre-Op Diagnosis: CLOSED LEFT HIP FRACTURE Post-Op Diagnosis: CLOSED LEFT HIP FRACTURE I identified the patient and participated in the time-out.: Yes Procedure Operation Date: 09/02/20 12:00 Actual Procedures p Left Bipolar Hemiarthroplasty(Left) - Alexandr Rossi DO Surgeon Alexandr Rossi, Blow Mold Machine Operator Jayden Cummings Estimated Blood Loss 150 Findings Consistent with Post-Op Diagnosis Fluids See anesthesia report Specimens Femoral head Anesthesia Type Spinal Complications none Disposition Disposition: Recovery Room Indications The patient is a 85-year-old female with displaced left femoral neck fracture sustained after a fall from standing height. The patient was medically stabilized on 09/02/2020. I indicated the patient for left hip hemiarthroplasty. The patient was informed of the risks and benefits of surgery, which include but not limited to infection, bleeding, blood clots, damage to nerves, vessels, bone and soft tissue, dislocation, leg length discrepancy, need for additional surgery and . The patient chose to move forward with surgical intervention and informed consent was obtained. Description of Procedure COMPONENTS USED: [employer] hip system: Femur size 3 Avenir extended, femoral head 28-3.5, 44 mm Shell. Following induction of adequate spinal anesthesia, the patient was transferred to the OR table and placed in the lateral decubitus position with right hip down. The left hip was prepped and draped in usual sterile manner. A timeout was performed, patient identified and site lee ann verified. Appropriate IV antibiotics were given. A posterior lateral incision was made. Subcutaneous tissue was sharply dissected down to the fascial layer. Electro cautery was used for hemostasis. Fascia was incised throughout the length of the wound and the piriformis was identified. A #1 Vicryl suture was used to tag the piriformis. The short external rotators were divided from the posterior aspect of the femur and a capsulotomy was performed. A second #1 Vicryl suture was used to tag the capsule. Next, I turned my attention to the femoral neck fracture. The fracture was relatively high on the calcar and decision was made to proceed with the oscillating saw and create the calcar osteotomy. This bone fragment was removed. Following this, tenaculum and cob elevator was utilized to remove the femoral head. The head was measured on the back table and the 44 mm femoral head was chosen as the size to be used. Next, attention was turned to the acetabulum which was found to have no significant arthritis. All bony debris was removed. Next, attention was then turned to the proximal femur where box osteotome was used to gain access to the femoral canal. A canal finder and power lateralizing reamer were utilized to further open. Sequential raspings were taken up to a size 3, which was sunk completely and trial reduction was carried out and a 28-3.5 mm femoral head was chosen the size to be used with the 44 bipolar cup. Following a trial reduction, the hip was found to be stable to 45 degrees of internal rotation and 90 degrees of flexion with equal leg lengths. The calcar reamer was utilized to smooth the calcar and the instruments and trial components were removed. The hip was thoroughly irrigated with pulsatile sterile saline solution with bacitracin. The size 3 Avenir stem was carefully impacted into place with appropriate version. The calcar was carefully assessed and found to be intact and without fractures. Following insertion of final stem component another trial reduction was carried out and again and a 28-3.5 mm femoral head with a 44 mm shell was chosen as the size to be used. The final head and neck was impacted into position and the hip was reduced and stability assess and was found to be stable to 45 degrees of internal rotation and 90 degrees of flexion. A 3-minute Betadine soak was performed at this time. The wound was irrigated with copious amounts of sterile saline solution with bacitracin. Yelena-incisional soft tissue was injected with the [place] Orthomix which includes a combination of Ropivicaine 0.5% 150mg, Bupivicaine 0.5%/Epinephrine 1:200,000 30ml, Toradol 30mg, Dexamethasone 4mg, Ketamine 10mg, Clonidine 100mcg and NSS 30ml solution. The capsule was repaired using #5 fiberwire sutures through drill holes. Following this, the short external rotators were reapproximated to the posterior aspect of the femur also through drill holes and these were tied. Once again the wound was copiously irrigated with sterile saline solution with bacitracin. Fascia was closed using #1 Vicryl [id number] sutures, subcutaneous tissue was closed using 2-0 vicryl, and skin was closed with mike. A sterile dry dressing was applied which included evita incisional VAC. The patient tolerated the procedure well and was taken to recovery room in stable condition. Due to the complex nature of the procedure, the entire surgery was performed with the operational assistance of Jayden Cummings PA-C. The magistrate assistant, under direct supervision, was involved in the actual performance of all aspects of the surgical procedure including patient positioning, hemostasis, tissue retraction, instrument management and wound closure. I attest to the content of the Intraoperative Record and any orders documented therein. Any exceptions are noted below.
--- NOTE | 2020-09-02 15:06 | Orthopedic Progress Note ---
Date of Service September 02, 2020 Assessment & Plan (1) Closed fracture of left hip: Plan: Status post left hip hemiarthroplasty -Clinda x24 -DVT prophylaxis: SCDs, teds, Lovenox--> warfarin -Weight-bear as tolerates left lower extremity -PT/OT -Postoperative x-ray left hip demonstrates well aligned well fixed prothesis without fracture/dislocation. -A.m. labs Admission and Anticipated Discharge Date Admission Date: August 31, 2020 Subjective Post Operative Progress Note Patient seen sitting up in bed, comfortable, denies complaints, pain well controlled, no acute issues. Review of Systems Review of Systems: All systems reviewed & are unremarkable except as noted in HPI & below Constitutional: as per Subjective / HPI Physical Exam Physical Exam: Left lower extremity physical exam limited secondary to spinal anesthesia, +2 dorsalis pedis pulse, compartment soft and compressible, dressing clean dry and intact. Results & Data ([facility]) Vital Signs (Past 12 Hours) Vital Signs Temp Pulse Pulse Pulse Resp BP Pulse Ox 09/02/20 15:00 67 15 111/51 L 100 09/02/20 14:50 67 20 103/46 L 100 09/02/20 14:41 36.7 C 69 20 111/53 L 100 09/02/20 11:50 36.8 C 89 18 176/80 H 97 09/02/20 07:33 69 09/02/20 07:29 37.1 C 77 16 172/72 H 95 (1) Closed fracture of left hip Encounter type: initial encounter Qualified Code(s): S72.002A - Fracture of unspecified part of neck of left femur, initial encounter for closed fracture
--- NOTE | 2020-09-02 15:08 | Anesthesiology Progress Note ---
Date of Service September 02, 2020 Anesthesia Post Procedure Vital Signs Vital Signs: Temp Pulse Pulse Pulse Resp BP BP 09/02/20 15:00 67 15 111/51 L 09/02/20 14:50 67 20 103/46 L 09/02/20 14:41 36.7 C 69 20 111/53 L 09/02/20 11:50 36.8 C 89 18 176/80 H 09/02/20 07:33 69 09/02/20 07:29 37.1 C 77 16 172/72 H 09/02/20 02:43 36.9 C 70 18 154/74 H 09/02/20 00:05 62 09/01/20 22:33 37.0 C 65 16 168/67 H 09/01/20 19:44 37.0 C 66 18 152/73 H 09/01/20 15:36 36.7 C 69 18 124/71 09/01/20 15:27 65 Pulse Ox 09/02/20 15:00 100 09/02/20 14:50 100 09/02/20 14:41 100 09/02/20 11:50 97 09/02/20 07:33 09/02/20 07:29 95 09/02/20 02:43 98 09/02/20 00:05 09/01/20 22:33 96 09/01/20 19:44 98 09/01/20 15:36 98 09/01/20 15:27 Pain Intensity Left Hip: Pain Intensity: 8 Transfer of Care Handoff Completed per policy Notes Mental Status: alert / awake / arousable Patient Amnestic to Procedure: Yes Nausea / Vomiting: adequately controlled Pain: adequately controlled Airway Patency, RR, SpO2: stable & adequate BP & HR: stable & adequate Hydration State: stable & adequate Neuraxial Anesthesia: was administered and sensory block is resolving Anesthetic Complications: no major complications apparent and Pt Satisfied with anesthetic care Notes: The patient is awake and comfortable. Her vital signs are stable.
[2020-09-02] MEDS ORDERED: NALOXONE HCL 0.4 MG/1 ML VIAL/CARP IV PRN (15:35)
--- NOTE | 2020-09-02 16:00 | XRay Report ---
XR hip LT min 2V HISTORY: 85 years-old Female Post-Operative implant position [total joint arthroplasty COMPARISON: Pelvis and left hip radiographs 08/31/2020 TECHNIQUE: 2 views of the left hip FINDINGS: Left hip total joint arthroplasty. Lateral skin mike are noted along with expected postoperative s oft tissue swelling and deep tissue air. No acute fracture, alignment or unexpected opaque foreign selam dy. IMPRESSION: Left hip total joint arthroplasty with expected postoperative changes. ACT 112: Negative or not required by law. The above report was generated using voice recognition software. It may contain grammatical, syntax o r spelling errors. Electronically signed by: Elijah Garcia M.D. 09/02/2020 3:59 PM
--- NOTE | 2020-09-02 16:16 | XRay Report ---
XR hand LT 2V HISTORY: 85 years-old Female r/o left 4th finger fx acute left hand pain COMPARISON: Finger radiographs 02/15/2016 TECHNIQUE: 3 views of the left and FINDINGS: Demineralized appearance of the bones. Severe multifocal osteoarthritis, most pronounced in the inter phalangeal joints which have progressively worsened from 2017. Erosions are also noted which are most pronounced within the third PIP joint. Degenerative related partial bony fusion of the fourth and fi fth PIP joints. No acute fracture or dislocation. Soft tissue swelling of the digits. IMPRESSION: 1. No acute fracture or dislocation. 2. Findings suggestive of erosive osteoarthritis, progressively worsened from 02/15/2016. 3. Soft tissue swelling of the third and fourth fingers. ACT 112: Negative or not required by law. The above report was generated using voice recognition software. It may contain grammatical, syntax o r spelling errors. Electronically signed by: Elijah Garcia M.D. 09/02/2020 4:15 PM
[2020-09-02] MEDS: WARFARIN SOD 5 MG TAB PO SCH (17:25)
[2020-09-02] MEDS: SENNA 8.6 MG TAB PO SCH (17:26)
[2020-09-02] MEDS: DOCUSATE SODIUM/SENNA 50/8.6MG TAB PO SCH (22:03)
[2020-09-02] MEDS: LOTEMAX OPR SCH (22:03)
[2020-09-02] MEDS: CLINDAMYCIN 600 MG in DEXTROSE 5% 50 ML IV SCH (22:03)
--- NOTE | 2020-09-02 22:30 | Hospitalist Progress Note ---
Date of Service September 02, 2020 Assessment & Plan (1) Closed fracture of left hip: Plan: Pathological, traumatic, osteoporotic fracture. Status post left hip hemiarthroplasty Patient is doing well.. resume coumadin will serve as her post-op DVT proph. (2) Fall: Plan: mechanical fall. With resulting left hip Fx. doesn't sound like she had any other precipitating factor. could consider pacer interrogation to be complete. echo in 03/2020 with preserved EF. (3) Anticoagulated on Coumadin: Plan: Chronic anticoagulation on warfarin for paroxysmal atrial fibrillation. INR 2.2 upon admission. s/p vitamin K 5 mg IV x1 repeat INR 1.5 today suspect INR will be close to 1 by tomorrow am; repeat INR in am (4) Paroxysmal atrial fibrillation: Plan: noted cont diltiazem on chronic anticoagulation (5) Hypothyroidism: Plan: Continue levothyroxine 50 mcg daily and liothyronine 5 mcg daily TSH 1.7 in 03/2020 (6) Depression: Plan: Continue venlafaxine (7) Hypertension: Plan: Continue diltiazem CD 240 mg daily (8) Cardiac pacemaker in situ: (9) History of cerebellar stroke: (10) Asthma: (11) Hyperlipidemia: (12) Chronic kidney disease, stage 3a: Plan: baseline CrCl 40s Plan: cont LR IV hydration NPO after MN tonight labs in am including INR pain control until then Admission and Anticipated Discharge Date Admission Date: August 31, 2020 Subjective Patient reports feeling well after surgery. She has no new complaints. Review of Systems Review of Systems: All systems reviewed & are unremarkable except as noted in HPI & below Physical Exam Physical Exam: gen - thin, NAD, pleasant mouth - MMM neck - no JVD heart - RRR, s1 s2 lungs - CTA b/l abd - soft NT ND BS+ ext - pulses 2+ b/l feet skin - skin tears left elbow region Results & Data Results & Data ([facility]) Vital Signs (Past 12 Hours) Vital Signs Temp Pulse Pulse Resp BP Pulse Ox 09/02/20 22:19 37.4 C 83 16 127/72 92 09/02/20 17:37 78 18 117/50 L 92 09/02/20 17:00 77 20 114/62 93 09/02/20 16:30 71 18 112/56 L 93 09/02/20 16:15 68 18 109/63 94 09/02/20 15:45 36.5 C 69 18 110/55 L 94 09/02/20 15:20 70 16 107/42 L 92 09/02/20 15:10 36.4 C L 70 19 106/47 L 95 09/02/20 15:00 67 15 111/51 L 100 09/02/20 14:50 67 20 103/46 L 100 09/02/20 14:41 36.7 C 69 20 111/53 L 100 09/02/20 11:50 36.8 C 89 18 176/80 H 97 PG Care Time/CCT Total # of Minutes Spent Total Time Spent with Patient: Total time spent is greater than 50% in coordination of care (as documented) at patient's floor/unit and/or counseling patient: Coding Level of Care Code 07735 Subseq Hosp Care Lvl 2 Diagnoses Closed fracture of left hip S72.002A Encounter type: initial encounter Fall W19.XXXA Encounter type: initial encounter Anticoagulated on Coumadin Z79.01 Paroxysmal atrial fibrillation I48.0 Hypothyroidism E03.9 Depression F32.9 Hypertension I10 Cardiac pacemaker in situ Z95.0 History of cerebellar stroke Z86.73 Asthma J45.909 Hyperlipidemia E78.5 Chronic kidney disease, stage 3a N18.31 Time Spent (min) 25 (1) Fall Encounter type: initial encounter Qualified Code(s): W19.XXXA - Unspecified fall, initial encounter (2) Closed fracture of left hip Encounter type: initial encounter Qualified Code(s): S72.002A - Fracture of unspecified part of neck of left femur, initial encounter for closed fracture
[2020-09-03 06:37] LABS: Basophils # (auto) 0.01 K/uL (0-0.2); Basophils % (auto) 0.1 %; Hematocrit (blood only) 30.7 % (37-47); Hemoglobin 10.4 g/dL (12.0-16.0); Immature Granulocytes # (auto) 0.02 K/uL (0.00-0.02); Immature Granulocytes % (auto) 0.2 %; Lymphocytes # (auto) 0.61 K/uL (1.2-3.4); Mean Corpuscular Hemoglobin 30.7 pg (25-34); Mean Corpuscular Hgb Conc 33.9 g/dL (32-36); Mean Corpuscular Volume 90.6 fL (80-100); Monocytes # (auto) 1.61 K/uL (0.11-0.59); Monocytes % (auto) 13.2 %; Neutrophils # (auto) 9.96 K/uL (1.4-6.5); Neutrophils % (auto) 81.5 %; Platelet Count 168 K/uL (130-400); RDW Coefficient of Variation 14.6 % (11.5-14.5); RDW Standard Deviation 48.2 fL (36.4-46.3); Red Blood Count 3.39 M/uL (4.2-5.4); White Blood Count 12.21 K/uL (4.8-10.8)
[2020-09-03] MEDS: CLINDAMYCIN 600 MG in DEXTROSE 5% 50 ML IV SCH (06:38)
[2020-09-03] MEDS: PANTOprazole 40 MG TAB PO SCH (06:41)
[2020-09-03] MEDS: LIOTHYRONINE SODIUM 5 MCG TAB PO SCH (06:41)
[2020-09-03] MEDS: LEVOTHYROXINE SODIUM 50 MCG TABLET PO SCH (06:41)
[2020-09-03] MEDS: dilTIAZem HCL 240 MG CAPCR PO SCH (06:41)
[2020-09-03] MEDS: ACETAMINOPHEN 325 MG TAB PO PRN ×2 (06:42→17:20)
[2020-09-03] MEDS: valACYclovir HCL 500 MG TABLET PO SCH (06:42)
[2020-09-03 06:45] LABS: INR 1.1 (0.9-1.1); Prothrombin Time 11.4 Seconds (9.0-12.0)
[2020-09-03 07:08] LABS: BUN Creatinine Ratio 22.7 (10-20); Calcium 8.6 mg/dl (8.5-10.1); Creatinine Clr Calc Pharmacy 42.8 ml/min; Est GFR (African American) 77.3 ml/min; Est GFR (Non-African American) 66.7 ml/min; Potassium 4.1 mmol/L (3.5-5.1)
[2020-09-03] MEDS: LACTATED RINGER'S 1,000 ML IV SCH ×2 (07:10→19:56)
--- NOTE | 2020-09-03 09:05 | Orthopedic Progress Note ---
Date of Service September 03, 2020 Assessment & Plan (1) Closed fracture of left hip: Plan: Status post left hip hemiarthroplasty POD#1 -Clinda x24 -DVT prophylaxis: SCDs, teds, Lovenox--> warfarin -Weight-bear as tolerates left lower extremity -PT/OT -Postoperative x-ray left hip demonstrates well aligned well fixed prothesis without fracture/dislocation. -A.m. labs as above, hgb 10.4 Admission and Anticipated Discharge Date Admission Date: August 31, 2020 Subjective Post Operative Progress Note Patient seen sitting up in bed, comfortable, denies complaints, pain well controlled, no acute issues. Review of Systems Review of Systems: All systems reviewed & are unremarkable except as noted in HPI & below Constitutional: as per Subjective / HPI Physical Exam Physical Exam: LLE NVSI +EHL/FHL/TA/GS SILT grossly, +2 DP pulse, compartments soft NT, dressing cdi. Results & Data ([facility]) Vital Signs (Past 12 Hours) Vital Signs Temp Pulse Pulse Resp BP BP Pulse Ox 09/03/20 06:35 37.8 C H 102 H 18 145/70 H 94 09/03/20 02:55 37.1 C 78 18 123/60 93 09/03/20 02:08 85 09/02/20 22:19 37.4 C 83 16 127/72 92 Laboratory Results 09/03/20 09/03/20 09/03/20 Range/Units 06:01 06:01 06:01 WBC 12.21 H (4.8-10.8) K/uL RBC 3.39 L (4.2-5.4) M/uL Hgb 10.4 L (12.0-16.0) g/dL Hct 30.7 L (37-47) % MCV 90.6 (80-100) fL MCH 30.7 (25-34) pg MCHC 33.9 (32-36) g/dL RDW Std Deviation 48.2 H (36.4-46.3) fL RDW Coeff of Jessi 14.6 H (11.5-14.5) % Plt Count 168 (130-400) K/uL MPV 11.0 H (7.4-10.4) fL Immature Gran % (Auto) 0.2 % Neut % (Auto) 81.5 % Lymph % (Auto) 5.0 % Pike % (Auto) 13.2 % Eos % (Auto) 0.0 % Baso % (Auto) 0.1 % Neut # (Auto) 9.96 H (1.4-6.5) K/uL Lymph # (Auto) 0.61 L (1.2-3.4) K/uL Pike # (Auto) 1.61 H (0.11-0.59) K/uL Eos # (Auto) 0.00 (0-0.5) K/uL Baso # (Auto) 0.01 (0-0.2) K/uL Immature Gran # (Auto) 0.02 (0.00-0.02) K/uL PT 11.4 (9.0-12.0) Seconds INR 1.1 (0.9-1.1) Sodium 133 L (136-145) mmol/L Potassium 4.1 (3.5-5.1) mmol/L Chloride 100 (98-107) mmol/L Carbon Dioxide 29 (21-32) mmol/L Anion Gap 4.0 (3-11) BUN 18 (7-18) mg/dl Creatinine 0.81 (0.6-1.2) mg/dl Est Cr Clr Drug Dosing 42.8 ml/min Est GFR ( Amer) 77.3 ml/min Est GFR (Non-Af Amer) 66.7 ml/min BUN/Creatinine Ratio 22.7 H (10-20) Glucose 100 H (70-99) mg/dl Calcium 8.6 (8.5-10.1) mg/dl (1) Closed fracture of left hip Encounter type: initial encounter Qualified Code(s): S72.002A - Fracture of unspecified part of neck of left femur, initial encounter for closed fracture
[2020-09-03] MEDS: POTASSIUM CHLORIDE 10 MEQ TABCR PO SCH (10:25)
[2020-09-03] MEDS: FLUTICASONE/VILANTEROL 100/25MCG 14 PUFFS/INHALER INH SCH (10:25)
[2020-09-03] MEDS: VITAMIN B COMPLEX TAB PO SCH (10:25)
[2020-09-03] MEDS: CEROVITE ADV FORMULA TAB PO SCH ×2 (10:25→17:20)
[2020-09-03] MEDS: CHOLECALCIFEROL 1,000 UNITS 25 MCG TAB PO SCH (10:25)
[2020-09-03] MEDS: ENOXAPARIN INJ 40 MG/0.4 ML SYR SQ SCH (10:25)
[2020-09-03] MEDS: VENLAFAXINE HCL XR 75 MG CAPXR PO SCH (10:25)
[2020-09-03] MEDS: SENNA 8.6 MG TAB PO SCH (17:20)
[2020-09-03] MEDS: WARFARIN SOD 5 MG TAB PO SCH (17:20)
[2020-09-03] MEDS: LOTEMAX OPR SCH (20:34)
[2020-09-03] MEDS: DOCUSATE SODIUM/SENNA 50/8.6MG TAB PO SCH (20:34)
--- NOTE | 2020-09-03 20:48 | Hospitalist Progress Note ---
Date of Service September 03, 2020 Assessment & Plan (1) Closed fracture of left hip: Plan: Pathological, traumatic, osteoporotic fracture. Status post left hip hemiarthroplasty Patient is doing well.. resume coumadin will serve as her post-op DVT proph. Due to dark urine, will check labs in AM. (2) Fall: Plan: mechanical fall. With resulting left hip Fx. doesn't sound like she had any other precipitating factor. could consider pacer interrogation to be complete. echo in 03/2020 with preserved EF. (3) Anticoagulated on Coumadin: Plan: Chronic anticoagulation on warfarin for paroxysmal atrial fibrillation. INR 2.2 upon admission. s/p vitamin K 5 mg IV x1 repeat INR 1.5 today suspect INR will be close to 1 by tomorrow am; repeat INR in am (4) Paroxysmal atrial fibrillation: Plan: noted cont diltiazem on chronic anticoagulation (5) Hypothyroidism: Plan: Continue levothyroxine 50 mcg daily and liothyronine 5 mcg daily TSH 1.7 in 03/2020 (6) Depression: Plan: Continue venlafaxine (7) Hypertension: Plan: Continue diltiazem CD 240 mg daily (8) Cardiac pacemaker in situ: (9) History of cerebellar stroke: (10) Asthma: (11) Hyperlipidemia: (12) Chronic kidney disease, stage 3a: Plan: baseline CrCl 40s Plan: cont LR IV hydration labs in am including INR pain control until then Admission and Anticipated Discharge Date Admission Date: August 31, 2020 Subjective Patient has no new complaints. Urine was darker. Nurse bladder scanned and it was negative, Review of Systems Review of Systems: All systems reviewed & are unremarkable except as noted in HPI & below Physical Exam Physical Exam: gen - thin, NAD, pleasant mouth - MMM neck - no JVD heart - RRR, s1 s2 lungs - CTA b/l abd - soft NT ND BS+ ext - pulses 2+ b/l feet skin - skin tears left elbow region Results & Data Results & Data ([facility]) Vital Signs (Past 12 Hours) Vital Signs Temp Pulse Pulse Pulse Resp BP BP 09/03/20 19:18 36.3 C L 81 16 108/54 L 09/03/20 15:26 36.7 C 89 16 108/59 L 09/03/20 15:00 100 H 09/03/20 11:21 36.4 C L 76 16 90/55 L Pulse Ox 09/03/20 19:18 95 09/03/20 15:26 95 09/03/20 15:00 09/03/20 11:21 95 PG Care Time/CCT Total # of Minutes Spent Total Time Spent with Patient: Total time spent is greater than 50% in coordination of care (as documented) at patient's floor/unit and/or counseling patient: Coding Level of Care Code 85468 Subseq Hosp Care Lvl 2 Diagnoses Closed fracture of left hip S72.002A Encounter type: initial encounter Fall W19.XXXA Encounter type: initial encounter Anticoagulated on Coumadin Z79.01 Paroxysmal atrial fibrillation I48.0 Hypothyroidism E03.9 Depression F32.9 Hypertension I10 Cardiac pacemaker in situ Z95.0 History of cerebellar stroke Z86.73 Asthma J45.909 Hyperlipidemia E78.5 Chronic kidney disease, stage 3a N18.31 (1) Fall Encounter type: initial encounter Qualified Code(s): W19.XXXA - Unspecified fall, initial encounter (2) Closed fracture of left hip Encounter type: initial encounter Qualified Code(s): S72.002A - Fracture of unspecified part of neck of left femur, initial encounter for closed fracture
[2020-09-04] MEDS: dilTIAZem HCL 240 MG CAPCR PO SCH (06:31)
[2020-09-04] MEDS: LIOTHYRONINE SODIUM 5 MCG TAB PO SCH (06:32)
[2020-09-04] MEDS: PANTOprazole 40 MG TAB PO SCH (06:32)
[2020-09-04] MEDS: LEVOTHYROXINE SODIUM 50 MCG TABLET PO SCH (06:33)
[2020-09-04] MEDS: valACYclovir HCL 500 MG TABLET PO SCH (06:33)
[2020-09-04 08:02] LABS: Basophils # (auto) 0.01 K/uL (0-0.2); Basophils % (auto) 0.1 %; Eosinophils # (auto) 0.12 K/uL (0-0.5); Eosinophils % (auto) 1.1 %; Hematocrit (blood only) 28.6 % (37-47); Hemoglobin 9.7 g/dL (12.0-16.0); Immature Granulocytes # (auto) 0.02 K/uL (0.00-0.02); Immature Granulocytes % (auto) 0.2 %; Lymphocytes % (auto) 8.9 %; Mean Corpuscular Hemoglobin 30.1 pg (25-34); Mean Corpuscular Hgb Conc 33.9 g/dL (32-36); Mean Corpuscular Volume 88.8 fL (80-100); Monocytes # (auto) 1.33 K/uL (0.11-0.59); Monocytes % (auto) 11.8 %; Neutrophils # (auto) 8.77 K/uL (1.4-6.5); Neutrophils % (auto) 77.9 %; Platelet Count 179 K/uL (130-400); RDW Coefficient of Variation 14.6 % (11.5-14.5); Red Blood Count 3.22 M/uL (4.2-5.4); White Blood Count 11.25 K/uL (4.8-10.8)
[2020-09-04 08:30] LABS: Calcium 8.2 mg/dl (8.5-10.1); Est GFR (African American) 82.2 ml/min; Est GFR (Non-African American) 70.9 ml/min
[2020-09-04 08:51] LABS: INR 1.5 (0.9-1.1); Prothrombin Time 14.3 Seconds (9.0-12.0)
[2020-09-04] MEDS: ENOXAPARIN INJ 40 MG/0.4 ML SYR SQ SCH (08:58)
[2020-09-04] MEDS: CEROVITE ADV FORMULA TAB PO SCH ×2 (08:58→17:48)
[2020-09-04] MEDS: LACTATED RINGER'S 1,000 ML IV SCH (08:58)
[2020-09-04] MEDS: POTASSIUM CHLORIDE 10 MEQ TABCR PO SCH (08:58)
[2020-09-04] MEDS: FLUTICASONE/VILANTEROL 100/25MCG 14 PUFFS/INHALER INH SCH (08:58)
[2020-09-04] MEDS: VENLAFAXINE HCL XR 75 MG CAPXR PO SCH (08:58)
[2020-09-04] MEDS: VITAMIN B COMPLEX TAB PO SCH (08:59)
[2020-09-04] MEDS: CHOLECALCIFEROL 1,000 UNITS 25 MCG TAB PO SCH (08:59)
--- NOTE | 2020-09-04 11:19 | Hospitalist Progress Note ---
Date of Service September 04, 2020 Assessment & Plan (1) Closed fracture of left hip: Plan: Pathological, traumatic, osteoporotic fracture. Status post left hip hemiarthroplasty Patient is doing well.. resume coumadin will serve as her post-op DVT proph. creatinine is stable. (2) Fall: Plan: mechanical fall. With resulting left hip Fx. doesn't sound like she had any other precipitating factor. could consider pacer interrogation to be complete. echo in 03/2020 with preserved EF. will transfer to med surg (3) Anticoagulated on Coumadin: Plan: Chronic anticoagulation on warfarin for paroxysmal atrial fibrillation. INR 2.2 upon admission. s/p vitamin K 5 mg IV x1 resumed coumadin (4) Paroxysmal atrial fibrillation: Plan: noted cont diltiazem on chronic anticoagulation (5) Hypothyroidism: Plan: Continue levothyroxine 50 mcg daily and liothyronine 5 mcg daily TSH 1.7 in 03/2020 (6) Depression: Plan: Continue venlafaxine (7) Hypertension: Plan: Continue diltiazem CD 240 mg daily (8) Cardiac pacemaker in situ: (9) History of cerebellar stroke: (10) Asthma: (11) Hyperlipidemia: (12) Chronic kidney disease, stage 3a: Plan: baseline CrCl 40s Plan: cont LR IV hydration labs in am including INR pain control until then Admission and Anticipated Discharge Date Admission Date: August 31, 2020 Subjective 85 yo female reports no new symptoms. Review of Systems Review of Systems: All systems reviewed & are unremarkable except as noted in HPI & below Physical Exam Physical Exam: gen - thin, NAD, pleasant mouth - MMM neck - no JVD heart - RRR, s1 s2 lungs - CTA b/l abd - soft NT ND BS+ ext - pulses 2+ b/l feet skin - skin tears left elbow region Results & Data Results & Data ([facility]) Vital Signs (Past 12 Hours) Vital Signs Temp Pulse Resp BP Pulse Ox 09/04/20 07:41 37.0 C 78 20 115/62 91 09/04/20 06:30 83 131/58 L 09/04/20 04:53 37.2 C 83 16 137/71 93 09/03/20 23:57 36.9 C 76 16 113/61 95 PG Care Time/CCT Total # of Minutes Spent Total Time Spent with Patient: Total time spent is greater than 50% in coordination of care (as documented) at patient's floor/unit and/or counseling patient: Coding Level of Care Code 56042 Subseq Hosp Care Lvl 2 Diagnoses Closed fracture of left hip S72.002A Encounter type: initial encounter Fall W19.XXXA Encounter type: initial encounter Anticoagulated on Coumadin Z79.01 Paroxysmal atrial fibrillation I48.0 Hypothyroidism E03.9 Depression F32.9 Hypertension I10 Cardiac pacemaker in situ Z95.0 History of cerebellar stroke Z86.73 Asthma J45.909 Hyperlipidemia E78.5 Chronic kidney disease, stage 3a N18.31 Time Spent (min) 25 (1) Fall Encounter type: initial encounter Qualified Code(s): W19.XXXA - Unspecified fall, initial encounter (2) Closed fracture of left hip Encounter type: initial encounter Qualified Code(s): S72.002A - Fracture of unspecified part of neck of left femur, initial encounter for closed fracture
--- NOTE | 2020-09-04 12:32 | Orthopedic Progress Note ---
Date of Service September 04, 2020 Assessment & Plan (1) Closed fracture of left hip: Plan: Status post left hip hemiarthroplasty POD#2 -Clinda x24 -DVT prophylaxis: SCDs, teds, Lovenox--> warfarin -Weight-bear as tolerates left lower extremity -PT/OT Admission and Anticipated Discharge Date Admission Date: August 31, 2020 Subjective POD #2 resting in bed eating lunch. No complaints Physical Exam Physical Exam: Toes mobile, NVI. Calves soft, non tender. Dressing in place. Results & Data ([facility]) Vital Signs (Past 12 Hours) Vital Signs Temp Pulse Resp BP BP Pulse Ox 09/04/20 11:39 36.8 C 72 20 115/60 96 09/04/20 07:41 37.0 C 78 20 115/62 91 09/04/20 06:30 83 131/58 L 09/04/20 04:53 37.2 C 83 16 137/71 93 (1) Closed fracture of left hip Encounter type: initial encounter Qualified Code(s): S72.002A - Fracture of unspecified part of neck of left femur, initial encounter for closed fracture
[2020-09-04] MEDS: HYDROCODONE/ACETAMOPHEN 5/325MG TAB PO PRN ×2 (13:10→18:12)
[2020-09-04] MEDS: WARFARIN SOD 5 MG TAB PO SCH (17:48)
[2020-09-04] MEDS: SENNA 8.6 MG TAB PO SCH (17:48)
[2020-09-04] MEDS: LOTEMAX OPR SCH (21:44)
[2020-09-04] MEDS: DOCUSATE SODIUM/SENNA 50/8.6MG TAB PO SCH (21:44)
[2020-09-05] MEDS: LIOTHYRONINE SODIUM 5 MCG TAB PO SCH (06:09)
[2020-09-05] MEDS: dilTIAZem HCL 240 MG CAPCR PO SCH (06:09)
[2020-09-05] MEDS: PANTOprazole 40 MG TAB PO SCH (06:10)
[2020-09-05] MEDS: valACYclovir HCL 500 MG TABLET PO SCH (06:10)
[2020-09-05 08:09] LABS: Basophils # (auto) 0.05 K/uL (0-0.2); Basophils % (auto) 0.5 %; Eosinophils # (auto) 0.39 K/uL (0-0.5); Hematocrit (blood only) 29.1 % (37-47); Hemoglobin 9.6 g/dL (12.0-16.0); Immature Granulocytes # (auto) 0.01 K/uL (0.00-0.02); Immature Granulocytes % (auto) 0.1 %; Lymphocytes # (auto) 0.93 K/uL (1.2-3.4); Lymphocytes % (auto) 9.6 %; Mean Corpuscular Hemoglobin 30.2 pg (25-34); Mean Corpuscular Volume 91.5 fL (80-100); Monocytes # (auto) 1.02 K/uL (0.11-0.59); Monocytes % (auto) 10.6 %; Neutrophils # (auto) 7.25 K/uL (1.4-6.5); Neutrophils % (auto) 75.2 %; Platelet Count 230 K/uL (130-400); RDW Standard Deviation 50.3 fL (36.4-46.3); Red Blood Count 3.18 M/uL (4.2-5.4); White Blood Count 9.65 K/uL (4.8-10.8)
[2020-09-05 08:19] LABS: INR 1.6 (0.9-1.1); Prothrombin Time 15.6 Seconds (9.0-12.0)
[2020-09-05 08:30] LABS: BUN Creatinine Ratio 24.9 (10-20); Calcium 8.3 mg/dl (8.5-10.1); Creatinine Clr Calc Pharmacy 50.9 ml/min; Est GFR (African American) 93.1 ml/min; Est GFR (Non-African American) 80.3 ml/min
--- NOTE | 2020-09-05 09:28 | Orthopedic Progress Note ---
Date of Service September 05, 2020 Assessment & Plan (1) Closed fracture of left hip: Plan: Status post left hip hemiarthroplasty POD#3 -Clinda x24 -DVT prophylaxis: SCDs, teds, warfarin -Weight-bear as tolerates left lower extremity -PT/OT -would like to go to [facility] (?) for therapy upon discharge when medically stable Admission and Anticipated Discharge Date Admission Date: August 31, 2020 Subjective patient eating breakfast in bed. No complaints. Pain only when moving. No CP, SOB, dizziness. Physical Exam Physical Exam: Toes mobile, NVI. Calves soft, non tender. Dressing in place. Results & Data ([facility]) Vital Signs (Past 12 Hours) Vital Signs Temp Pulse Resp BP Pulse Ox 09/04/20 22:06 36.8 C 68 17 111/65 95 (1) Closed fracture of left hip Encounter type: initial encounter Qualified Code(s): S72.002A - Fracture of unspecified part of neck of left femur, initial encounter for closed fracture
[2020-09-05] MEDS: CEROVITE ADV FORMULA TAB PO SCH (09:42)
[2020-09-05] MEDS: CHOLECALCIFEROL 1,000 UNITS 25 MCG TAB PO SCH (09:42)
[2020-09-05] MEDS: ENOXAPARIN INJ 40 MG/0.4 ML SYR SQ SCH (09:42)
[2020-09-05] MEDS: VENLAFAXINE HCL XR 75 MG CAPXR PO SCH (09:44)
[2020-09-05] MEDS: FLUTICASONE/VILANTEROL 100/25MCG 14 PUFFS/INHALER INH SCH (09:44)
[2020-09-05] MEDS: VITAMIN B COMPLEX TAB PO SCH (09:44)
[2020-09-05] MEDS: POTASSIUM CHLORIDE 10 MEQ TABCR PO SCH (09:44)
[2020-09-05] MEDS ORDERED: ENOXAPARIN INJ 40 MG/0.4 ML SYR SQ ONE (12:30)
--- NOTE | 2020-09-05 14:30 | Discharge Summary ---
Date of Service September 05, 2020 Admission HPI Per Admitting Provider The patient is a 85-year-old female with a past medical history including cervical myelopathy, cardiac pacemaker, history of cerebellar stroke, chronic anticoagulation on warfarin, aortic stenosis, asthma, hypertension, diverticulitis, GERD, hyperlipidemia, hypothyroidism, idiopathic peripheral neuropathy, left bundle branch block, right bundle branch block, pacemaker presents and depression. Patient presents as noted above. X-rays in the emergency department of pelvis showed a closed left intertrochanteric fracture Principal Diagnosis left hip fracture Discharge Exam gen - thin, NAD, pleasant mouth - MMM neck - no JVD heart - RRR, s1 s2 lungs - CTA b/l abd - soft NT ND BS+ ext - pulses 2+ b/l feet skin - skin tears left elbow region Discharge Data Allergies Allergy/AdvReac Type Severity Reaction Status Date / Time codeine Allergy Intermediate VOMITTING Verified 09/05/20 22:10 COFFEE GROUNDS latex Allergy Mild Rash Verified 08/25/20 15:31 Penicillins Allergy Mild RASH Verified 09/05/20 22:10 Sulfa (Sulfonamide Allergy Mild RASH Verified 09/05/20 22:10 Antibiotics) ephedrine Allergy Unknown Unknown Verified 09/05/20 22:10 Consultations 08/31/20 22:42 Consult Orthopedic Surgery Routine ED Decision to Admit Stat Procedures Performed Operation Date: 09/02/20 12:00 Actual Procedures p Left Bipolar Hemiarthroplasty(Left) - Alexandr Rossi DO Ordered Studies 08/31/20 21:20 CT head/brain wo con Urgent Hospital Course (1) Closed fracture of left hip: Pathological, traumatic, osteoporotic fracture. Status post left hip hemiarthroplasty Patient is doing well.. resume coumadin will serve as her post-op DVT proph. creatinine is stable. Due to elevated CHADSVASC2 SCORE OF 6, will place on lovenox. Patient will be on 1.5 mg/kg for aprox. 5 days, or until INR is therapeutic. will need followup with ortho as an outpatient. (2) Fall: mechanical fall. With resulting left hip Fx. doesn't sound like she had any other precipitating factor. could consider pacer interrogation to be complete. echo in 03/2020 with preserved EF. (3) Anticoagulated on Coumadin: Chronic anticoagulation on warfarin for paroxysmal atrial fibrillation. INR 2.2 upon admission. s/p vitamin K 5 mg IV x1 resumed coumadin (4) Paroxysmal atrial fibrillation: noted cont diltiazem on chronic anticoagulation (5) Hypothyroidism: Continue levothyroxine 50 mcg daily and liothyronine 5 mcg daily TSH 1.7 in 03/2020 (6) Depression: Continue venlafaxine (7) Hypertension: Continue diltiazem CD 240 mg daily (8) Cardiac pacemaker in situ: (9) History of cerebellar stroke: (10) Asthma: (11) Hyperlipidemia: (12) Chronic kidney disease, stage 3a: baseline CrCl 40s Total Time Total Time Spent Total Time Spent (In Minutes): 32 Discharge Plan Discharge Items Patient Disposition: Transfer Group Home Fac Reason For Visit: CLOSED LEFT HIP FRACTURE Discharge Diagnosis: Closed left hip fracture Activity: Resume your previous activity Non-emergency contact: Primary Care Provider Call non-emergency contact if: you have any medication questions Follow-up/Referrals: Edmond Matamoros [Primary Care Provider] - Diet: Regular Addtl Attending Provider Instructions: Due to high chadsvasc score will recommending checking INR daily. Continue Lovenox until INR is therapuetic to 2.0. Bridge for additional 24 hours after reaching above goal .( one more dose). HIP PT/ followup with Ortho as an outpatient. Pending Studies at Discharge: No Stand-Alone Forms: My [facility] Skilled Items Patient informed of condition?: Yes DNR: No Discharge Level of Care: Skilled Communicable Disease: No Discharge Prognosis: Stable Lines: None Urinary Catheter: No Medications and DC Order Prescriptions: Continued fluticasone propion-salmeterol [Advair Diskus] 250-50 mcg/dose Blister With Device 1 inh INHALATION Q12H RF: 0 diltiazem HCl [Cardizem CD] 240 mg Capsule,Extended Release 24hr 240 mg PO DAILYBB RF: 0 potassium chloride 10 mEq Tablet Extended Release 10 meq PO QAM RF: 0 fexofenadine [Trixie Allergy] 180 mg Tablet 180 mg PO DAILY PRN (Reason: ALLERGY RELIEF) RF: 0 valacyclovir 500 mg Tablet 500 mg PO QAM RF: 0 liothyronine 5 mcg Tablet 5 mcg PO DAILYBB RF: 0 levothyroxine 50 mcg Tablet 50 mcg PO MOTUWETHFRSA RF: 0 albuterol sulfate [ProAir HFA] 90 mcg/actuation Hfa Aerosol Inhaler 1 puff INHALATION Q12 PRN (Reason: SHORT OF BREATH) RF: 0 cholecalciferol (vitamin D3) [Vitamin D3] 1,000 unit Capsule 1,000 unit PO QAM RF: 0 omeprazole 20 mg Tablet,Delayed Release (Dr/Ec) 20 mg PO QAM RF: 0 PreserVision AREDS 7,160-113-100 [id number] Tablet 1 tab PO BIDM RF: 0 loteprednol etabonate [Lotemax] 0.5 % Drops,Gel 1 drp OPR HS RF: 0 sennosides [senna] 8.6 mg Tablet 8.6 mg PO QDD RF: 0 warfarin 5 mg tablet 5 mg PO QPM RF: 0 vitamin B complex Tablet 1 tab PO QAM RF: 0 Lubricant Eye (cmc-glycerin) 0.5-0.9 % Drops 1 drp OPL HS RF: 0 venlafaxine 75 mg capsule,extended release 24hr 75 mg PO QAM RF: 0 No Action enoxaparin 80 mg/0.8 mL syringe 80 mg subcut QAM RF: 0 acetaminophen 500 mg Tablet 1,000 mg PO TID RF: 0 polyethylene glycol 3350 [Miralax] 17 gram/dose Powder 17 g PO QAM RF: 0 Discharge Orders: Discharge Order (Routine); Ordered 09/05/20 Ordered By: Connor Escobedo Admission Data Admit Date/Time: 08/31/20 23:24 Attending Provider: Connor Escobedo Admit Provider: Seth Dent Primary Care Provider: Edmond Matamoros Other Providers: Seth Dent ; John Zimmer Other Interventions: Discharge Summary Assessment (RN) Last Done: 09/05/20 11:23 Coding Level of Care Code D/C DAY MANAGEMENT >30 MINS Diagnoses Closed fracture of left hip S72.002A Encounter type: initial encounter Fall W19.XXXA Encounter type: initial encounter Anticoagulated on Coumadin Z79.01 Paroxysmal atrial fibrillation I48.0 Hypothyroidism E03.9 Depression F32.9 Hypertension I10 Cardiac pacemaker in situ Z95.0 History of cerebellar stroke Z86.73 Asthma J45.909 Hyperlipidemia E78.5 Chronic kidney disease, stage 3a N18.31
== END 2020-09-05 13:55 | DRG 522 ==
LOC: ED 20:59 → SUATTDRO 09-01 02:16 → 2W 09-01 02:16 → 3E 09-04 17:03

== ENCOUNTER 2020-09-05 20:57 | Inpatient (IN) ==
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
[2020-09-05] MEDS ORDERED: SODIUM CHLORIDE 0.9% 500 ML IV SCH (21:15)
[2020-09-05] MEDS ORDERED: CLINDAMYCIN 900 MG in DEXTROSE 5% 50 ML IV ONE (21:15)
[2020-09-05] MEDS ORDERED: OPTIRAY 320 125ml IV ONE (21:46)
[2020-09-05 21:50] LABS: Basophils # (auto) 0.05 K/uL (0-0.2); Basophils % (auto) 0.6 %; Eosinophils # (auto) 0.27 K/uL (0-0.5); Eosinophils % (auto) 3.3 %; Hemoglobin 8.7 g/dL (12.0-16.0); Immature Granulocytes # (auto) 0.02 K/uL (0.00-0.02); Immature Granulocytes % (auto) 0.2 %; Lymphocytes # (auto) 1.06 K/uL (1.2-3.4); Lymphocytes % (auto) 12.8 %; Mean Corpuscular Hemoglobin 30.1 pg (25-34); Mean Corpuscular Hgb Conc 33.5 g/dL (32-36); Mean Platelet Volume 11.4 fL (7.4-10.4); Monocytes # (auto) 0.96 K/uL (0.11-0.59); Monocytes % (auto) 11.6 %; Neutrophils # (auto) 5.89 K/uL (1.4-6.5); Neutrophils % (auto) 71.5 %; Platelet Count 261 K/uL (130-400); RDW Coefficient of Variation 15.3 % (11.5-14.5); RDW Standard Deviation 49.9 fL (36.4-46.3); Red Blood Count 2.89 M/uL (4.2-5.4); White Blood Count 8.25 K/uL (4.8-10.8)
[2020-09-05 22:11] LABS: Alanine Aminotransferase 36 U/L (12-78); BUN Creatinine Ratio 25.1 (10-20); Blood Urea Nitrogen 16 mg/dl (7-18); Calcium 7.6 mg/dl (8.5-10.1); Carbon Dioxide 27 mmol/L (21-32); Chloride 103 mmol/L (98-107); Creatinine Clr Calc Pharmacy 46.8 ml/min; Est GFR (African American) 94.5 ml/min; Est GFR (Non-African American) 81.5 ml/min; Glucose 116 mg/dl (70-99); Sodium 133 mmol/L (136-145)
[2020-09-05 22:18] LABS: Albumin Globulin Ratio 0.5 (0.9-2); Alkaline Phosphatase 99 U/L (45-117); Bilirubin,Total 0.5 mg/dl (0.2-1); Globulin 3.7 gm/dl (2.5-4.0); Total Protein 5.7 gm/dl (6.4-8.2); Troponin I < 0.015 ng/ml (0-0.045)
[2020-09-05 22:21] LABS: INR 1.6 (0.9-1.1); Prothrombin Time 16.1 Seconds (9.0-12.0)
[2020-09-05 22:36] LABS: Potassium 4.6 mmol/L (3.5-5.1)
[2020-09-05 22:40] LABS: T4 Free Thyroxine 0.92 ng/dl (0.8-1.6)
[2020-09-05 22:41] LABS: Magnesium 2.5 mg/dl (1.8-2.4)
[2020-09-05] MEDS ORDERED: CALCIUM GLUCONATE 1,000 MG/60 ML BAG IV STA (23:13)
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
[2020-09-06 02:13] LABS: Appearance Urine Clear (Clear); Bacteria Urine Automated Negative (Negative); Bilirubin Urine Negative (Negative); Blood Urine 1+ (Negative); Cast Urine Automated 0 /lpf (0-5); Color Urine Yellow; Glucose Urine UA Negative (Negative); Ketones Urine Negative (Negative); Leukocyte Esterase Urine Negative (Negative); Nitrite Urine Negative (Negative); Protein Urine Negative (Negative); Urobilinogen Urine Negative (Negative); pH Urine 6.5 (4.5-7.5)
[2020-09-06] MEDS ORDERED: ONDANSETRON INJ 2 MG/ML 2 ML VIAL IV PRN (02:22)
[2020-09-06] MEDS: ERTAPENEM SODIUM 1,000 MG in SODIUM CHLORIDE 0.9% 50 ML IV SCH (02:57)
[2020-09-06] MEDS ORDERED: NSS + 20MEQ KCL 20 MEQ/1,000 ML BAG IV SCH (03:00)
[2020-09-06] MEDS ORDERED: ACETAMINOPHEN 65 ML IV PRN (04:16)
[2020-09-06] MEDS ORDERED: KETOROLAC TROMETHAMINE 15 MG/ML VIAL IV ONE (04:18)
[2020-09-06] MEDS: LOTEMAX~ORDER AWAITING ACTION SCH ×2 (07:55→15:39)
[2020-09-06] MEDS: FLUTICASONE/VILANTEROL 200/25MCG 14 PUFFS/INHALER INH SCH (07:57)
[2020-09-06] MEDS: ENOXAPARIN 80 MG/0.8 ML SYR SQ SCH (07:57)
--- NOTE | 2020-09-06 07:57 | Electrocardiogram Report ---
Test Reason : Blood Pressure : / mmHG Vent. Rate : 078 BPM Atrial Rate : 078 BPM P-R Int : 172 ms QRS Dur : 168 ms QT Int : 452 ms P-R-T Axes : 059 -81 084 degrees QTc Int : 515 ms Atrial-sensed ventricular-paced rhythm Abnormal ECG When compared with ECG of 31-AUG-2020 21:08, Vent. rate has increased BY 18 BPM Confirmed by Jonathan Franz ([id number]) on 09/06/2020 7:57:18 AM Referred By: REFERRED SELF Confirmed By:Jonathan Franz
--- NOTE | 2020-09-06 08:00 | CT Scan Report ---
CT ANGIOGRAPHY OF THE CHEST, PULMONARY EMBOLUS PROTOCOL CLINICAL HISTORY: Shortness of breath. Evaluate for pulmonary embolus. COMPARISON STUDY: MRI of the chest January 08, 2017. Chest radiograph August 31, 2020. TECHNIQUE: Following IV administration of 120 mL of Optiray, helical axial images of the chest were o btained utilizing the pulmonary embolus protocol. Maximal intensity projections and sagittal and cor onal reformats were viewed on an independent 3D workstation. IV contrast was administered without co mplication. Automated exposure control was utilized for the study. A dose lowering technique was ut ilized adhering to the principles of ALARA. CT DOSE: 278.67 mGycm FINDINGS: Dual lead left subclavian pacemaker is in place. There are no pulmonary emboli. Note is ma de of cardiomegaly. There is no pericardial effusion. No thoracic aortic dissection. No pneumothorax is present. There are small bilateral pleural effusions. Associated subpleural opacity favors atelect asis. There are tree-in-bud nodules within the right lung. Central airways are patent. No acute fract ure or suspicious lesion is identified within visualized portions of the bony thorax. IMPRESSION: 1. No pulmonary emboli identified. 2. Ground glass and tree-in-bud nodules within the right lung which favor an infectious process such as bronchiolitis or developing bronchopneumonia. 3. Small bilateral pleural effusions. Cardiomegaly. ACT 112: Negative or not required by law. Electronically signed by: Deepak Urias M.D. 09/06/2020 7:59 AM
--- NOTE | 2020-09-06 12:54 | Fluoroscopy Report ---
MODIFIED BARIUM SWALLOW CLINICAL HISTORY: aspiration pna COMPARISON STUDY: Modified barium swallow January 26, 2010. FLUOROSCOPY TIME: 2.4 minutes. TECHNIQUE: A modified barium swallow was performed in conjunction with Speech Pathology. The patient ingested varying consistencies of barium containing material. Video fluoroscopy was performed. FINDINGS: Incidental note is made of an anterior cervical spine fusion and partially visualized pacem fransisco leads. No tracheal aspiration was identified with thin liquids, nectar thick liquids, honey thic k liquids, pudding or crackers with paste. Note is made of mild pharyngeal residuals. Severe esophage al dysmotility is noted. Esophagus is suboptimally assessed utilizing this technique IMPRESSION: 1. No tracheal aspiration. 2. Severe esophageal dysmotility. 3. Full recommendations by speech pathology to follow. ACT 112: Negative or not required by law. Electronically signed by: Deepak Urias M.D. 09/06/2020 12:52 PM
--- NOTE | 2020-09-06 13:22 | History & Physical Bridge Note ---
Date of Service September 06, 2020 History & Physical Bridge Note I have examined the patient, reviewed the History & Physical and in the interval since the performance of the History & Physical I have noted the following changes of clinical significance: patient breathing comfortably today, no acute issues since admission d/w speech therapy, video swallow study shows no issues at all with swallowing, her issue is poor motility in esophagus, describes sensation of food getting stuck will consult gastroenterology for their recommendations, make NPO after midnight continue antibiotics for aspiration event
[2020-09-06] MEDS: METOPROLOL TARTRATE 1 MG/ML VIAL IV PRN ×2 (13:24→20:33)
[2020-09-07] MEDS: LOTEMAX~ORDER AWAITING ACTION SCH ×3 (00:20→14:31)
[2020-09-07] MEDS: METOPROLOL TARTRATE 1 MG/ML VIAL IV PRN ×3 (04:39→12:14)
[2020-09-07] MEDS: ERTAPENEM SODIUM 1,000 MG in SODIUM CHLORIDE 0.9% 50 ML IV SCH (06:29)
[2020-09-07] MEDS: ENOXAPARIN 80 MG/0.8 ML SYR SQ SCH (08:37)
[2020-09-07] MEDS: FLUTICASONE/VILANTEROL 200/25MCG 14 PUFFS/INHALER INH SCH (08:37)
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
--- NOTE | 2020-09-07 11:36 | Hospitalist Progress Note ---
Date of Service September 07, 2020 Assessment & Plan (1) Aspiration pneumonia: Plan: Right lower lobe aspiration pneumonia- continue ertapenem 1 g IV daily as she has PCN allergy on room air, WBC normal, minimal cough (2) Chronic kidney disease, stage 3a: Plan: Creatinine stable (3) Closed fracture of left hip: Plan: Status post left hip surgery a few days prior to admission Consult PT/OT while in hospital plan to return to rehab (4) Hypothyroidism: Plan: levothyroxine and liothyronine (5) Hypertension: Plan: resume Cardizem CD 240mg daily (6) Depression: Plan: Venlafaxine temporarily on hold (7) Anticoagulated on warfarin: Plan: Hold warfarin. Continue Lovenox at corrected dose of 70 mg subcu daily Resume warfarin and continue Lovenox bridge after EGD Admission and Anticipated Discharge Date Admission Date: September 06, 2020 Subjective patient doing well on room air today, minimal cough, no dyspnea appreciate GI consult, plan for EGD tomorrow, won't help with motility issues discussed with patient that speech therapy can help come up with diet recommendations no labs today Review of Systems Review of Systems: All systems reviewed & are unremarkable except as noted in Subjective Gastrointestinal: + dysphagia (feels like food gets stuck) Physical Exam Constitutional: well developed, + thin, + frail appearing and comfortable; no acute distress and not ill appearing Neck: trachea midline, no thyromegaly Respiratory: normal respiratory effort, lungs clear to auscultation Cardiovascular: RRR, no murmur, no edema Gastrointestinal (Abdomen): normal bowel sounds, soft, nontender, no hepatosplenomegaly Musculoskeletal: Head/Neck/Chest: normocephalic, head atraumatic and neck supple Extremities: extremities normal to inspection and + abnormal strength; no cyanosis, no clubbing and no petechiae Skin: no rashes, warm and dry Neurologic: patellar DTR's 2+ bilat, sensation intact and PERRL, EOMI, accommodation nl, no face palsy, no dysarthria Psychiatric: A+Ox3, euthymic affect Results & Data Results & Data ([facility]) Vital Signs (Past 12 Hours) Vital Signs Temp Pulse Pulse Resp BP BP Pulse Ox 09/07/20 08:46 36.7 C 70 16 174/70 H 96 09/07/20 08:36 90 174/70 H 08/03/21 04:39 86 186/69 H 09/07/20 04:00 36.4 C L 86 16 186/69 H 96 Medications Administered Current Inpatient Medications Diltiazem HCl (Diltiazem Hcl 240 Mg Capcr) 240 mg PO DAILYBB [facility] Stop: 10/08/20 06:29 Diltiazem HCl (Diltiazem Hcl 240 Mg Capcr) 240 mg PO ONE ONE Stop: 09/07/20 11:35 Enoxaparin Sodium (Enoxaparin 80 Mg/0.8 Ml Syr) 70 mg SQ QAM [facility] Stop: 10/06/20 08:59 Last Admin: 09/07/20 08:37 Dose: 70 mg Documented by: Fluticasone/Vilanterol (Fluticasone/Vilanterol 200/25mcg 14 Puffs/Inhaler) 1 puffs INH DAILY [facility] Stop: 10/06/20 08:59 Last Admin: 09/07/20 08:37 Dose: 1 puffs Documented by: Ertapenem 1,000 mg/ Sodium (Chloride) 60 mls @ 100 mls/hr IV Q24H [facility] Stop: 09/13/20 02:59 Last Infusion: 09/07/20 07:05 Dose: Infused Documented by: Metoprolol Tartrate (Metoprolol Tartrate 1 Mg/Ml Vial) 5 mg IV Q4 PRN PRN Reason: Hypertension Stop: 10/06/20 03:59 Last Admin: 09/07/20 08:36 Dose: 5 mg Documented by: Miscellaneous (Cmc/Glycerin~Order Awaiting Action) 1 ea N/A QS [facility] Stop: 10/06/20 07:59 Last Admin: 09/07/20 07:12 Dose: Not Given Documented by: Miscellaneous (Lotemax~Order Awaiting Action) 1 ea N/A QS [facility] Stop: 10/06/20 07:59 Last Admin: 09/07/20 07:13 Dose: Not Given Documented by: Ondansetron HCl (Ondansetron Inj 2 Mg/Ml 2 Ml Vial) 4 mg IV Q6H PRN PRN Reason: Nausea Stop: 10/06/20 02:21 PG Care Time/CCT Total # of Minutes Spent Total Time Spent with Patient: Total time spent is greater than 50% in coordination of care (as documented) at patient's floor/unit and/or counseling p atient: Coding Level of Care Code 61501 Subseq Hosp Care Lvl 2 Diagnoses Aspiration pneumonia J69.0 Aspiration pneumonia type: unspecified Laterality: right Lung location: lower lobe of lung Chronic kidney disease, stage 3a N18.31 Closed fracture of left hip S72.002A Encounter type: initial encounter Hypothyroidism E03.9 Hypertension I10 Depression F32.9 Anticoagulated on warfarin Z79.01 (1) Aspiration pneumonia Aspiration pneumonia type: unspecified Laterality: right Lung location: lower lobe of lung Qualified Code(s): J69.0 - Pneumonitis due to inhalation of food and vomit (2) Closed fracture of left hip Encounter type: initial encounter Qualified Code(s): S72.002A - Fracture of unspecified part of neck of left femur, initial encounter for closed fracture
[2020-09-07] MEDS ORDERED: dilTIAZem HCL 240 MG CAPCR PO ONE (12:00)
[2020-09-08 05:20] LABS: Red Blood Count 3.49 M/uL (4.2-5.4); White Blood Count 7.84 K/uL (4.8-10.8)
[2020-09-08 05:21] LABS: Basophils # (auto) 0.05 K/uL (0-0.2); Basophils % (auto) 0.6 %; Eosinophils # (auto) 0.41 K/uL (0-0.5); Eosinophils % (auto) 5.2 %; Hematocrit (blood only) 30.9 % (37-47); Hemoglobin 10.4 g/dL (12.0-16.0); Immature Granulocytes # (auto) 0.08 K/uL (0.00-0.02); Lymphocytes # (auto) 1.02 K/uL (1.2-3.4); Mean Corpuscular Hemoglobin 29.8 pg (25-34); Mean Corpuscular Hgb Conc 33.7 g/dL (32-36); Mean Corpuscular Volume 88.5 fL (80-100); Mean Platelet Volume 9.4 fL (7.4-10.4); Monocytes # (auto) 0.89 K/uL (0.11-0.59); Monocytes % (auto) 11.4 %; Neutrophils # (auto) 5.39 K/uL (1.4-6.5); Neutrophils % (auto) 68.8 %; Platelet Count 348 K/uL (130-400); RDW Coefficient of Variation 14.5 % (11.5-14.5); RDW Standard Deviation 47.2 fL (36.4-46.3)
[2020-09-08 05:47] LABS: BUN Creatinine Ratio 28.5 (10-20); Calcium 8.1 mg/dl (8.5-10.1); Creatinine Clr Calc Pharmacy 41.1 ml/min; Est GFR (African American) 89.1 ml/min; Est GFR (Non-African American) 76.9 ml/min; Potassium 3.4 mmol/L (3.5-5.1)
[2020-09-08] MEDS: ERTAPENEM SODIUM 1,000 MG in SODIUM CHLORIDE 0.9% 50 ML IV SCH (06:13)
[2020-09-08] MEDS: dilTIAZem HCL 240 MG CAPCR PO SCH (06:14)
--- NOTE | 2020-09-08 08:27 | Communication Note ---
Date of Service: September 08, 2020 No GI concerns vocalized. Pt is NPO for EGD this AM. All questions regarding procedure answered. Plese see EGD report once completed for further recommenda tions.
[2020-09-08] MEDS: FLUTICASONE/VILANTEROL 200/25MCG 14 PUFFS/INHALER INH SCH (09:00)
[2020-09-08] MEDS ORDERED: PROPOFOL IV EMULSION 10 MG/ML 20 ML VIAL IV ONE (09:12)
[2020-09-08] MEDS ORDERED: LIDOCAINE 2% 2 ML VIAL/AMP(20MG/ML) INFIL ONE (09:12)
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
--- NOTE | 2020-09-08 09:58 | GI REPORT ---
Patient Name: Ellie Siddiqui Procedure Date: 09/08/2020 9:32 AM Date of : 1935 Admit Type: Inpatient Age: 85 Gender: Female Attending MD: Danuta Bruce DO Procedure: Upper GI endoscopy Providers: Danuta Bruce DO Referring MD: Justin Sanchez Indications: Dysphagia Medicines: Propofol per Anesthesia Complications: No immediate complications. Estimated blood loss: Minimal. Estimated Blood Loss: Estimated blood loss was minimal. Procedure: Pre-Anesthesia Assessment: - Prior to the procedure, a History and Physical was performed, and patient medications, allergies and sensitivities were reviewed. The patient's tolerance of previous anesthesia was reviewed. - The risks and benefits of the procedure and the sedation options and risks were discussed with the patient. All questions were answered and informed consent was obtained. - Patient identification and proposed procedure were verified prior to the procedure by the physician and the nurse. The procedure was verified in the pre-procedure area in the procedure room. - Mental Status Examination: alert and oriented. Airway Examination: normal oropharyngeal airway and neck mobility. Respiratory Examination: clear to auscultation. CV Examination: normal. Abdominal Examination: bowel sounds present, abdomen soft and non-tender, no masses or organomegaly noted. - ASA Grade Assessment: III - A patient with severe systemic disease. After obtaining informed consent, the endoscope was passed under direct vision. Throughout the procedure, the patient's blood pressure, pulse, and oxygen saturations were monitored continuously. The Endoscope was introduced through the mouth, and advanced to the second part of duodenum. The upper GI endoscopy was accomplished without difficulty. The patient tolerated the procedure well. Findings: The examined esophagus was normal. A guidewire was placed and the scope was withdrawn. Dilation was performed with a Savary dilator with no resistance at 54 Fr. The dilation site was examined and showed no bleeding, mucosal tear or perforation. Estimated blood loss: none. A small hiatal hernia was present. The examined duodenum was normal. Impression: - Normal esophagus. Dilated. - Small hiatal hernia. - Normal examined duodenum. - No specimens collected. Recommendation: - Return patient to [facility]. - Advance diet as tolerated. Danuta Bruce D.O. Danuta Bruce DO 09/08/2020 9:58:18 AM This report has been signed electronically. Note Initiated On: 09/08/2020 9:32 AM Number of Addenda: 0 I attest to the content of the Intraoperative Record and orders documented therein, exceptions below {[id number]}
--- NOTE | 2020-09-08 10:46 | Anesthesiology Progress Note ---
Date of Service September 08, 2020 Anesthesia Post Procedure Vital Signs Vital Signs: Temp Pulse Pulse Resp BP BP Pulse Ox 09/08/20 10:29 60 18 103/43 L 96 09/08/20 10:14 60 18 107/43 L 96 09/08/20 09:59 60 18 102/43 L 99 09/08/20 09:25 37.0 C 71 18 137/54 L 98 09/08/20 07:13 36.8 C 75 27 H 168/65 H 100 09/08/20 07:12 36.5 C 67 17 168/65 H 99 09/08/20 03:20 36.7 C 65 21 157/62 H 96 09/07/20 22:55 37.0 C 09/07/20 22:54 82 24 143/69 H 98 09/07/20 20:31 72 25 H 147/57 H 94 09/07/20 20:30 79 17 147/57 H 98 09/07/20 16:10 90 22 123/63 100 09/07/20 16:00 89 30 H 100 09/07/20 15:50 90 24 99 09/07/20 15:40 94 H 22 96 09/07/20 15:30 92 H 27 H 85 L 09/07/20 15:20 94 H 33 H 56 L 09/07/20 15:10 93 H 25 H 94 09/07/20 15:00 92 H 18 100 09/07/20 14:57 92 H 20 92 09/07/20 12:58 76 23 133/72 09/07/20 12:14 89 162/73 H 09/07/20 12:13 90 20 162/73 H 09/07/20 11:30 78 21 171/73 H 09/07/20 11:29 79 19 09/07/20 10:54 73 19 178/67 H Transfer of Care Handoff Completed per policy Notes Mental Status: alert / awake / arousable and participated in evaluation Patient Amnestic to Procedure: Yes Nausea / Vomiting: adequately controlled Pain: adequately controlled Airway Patency, RR, SpO2: stable & adequate BP & HR: stable & adequate Hydration State: stable & adequate Anesthetic Complications: no major complications apparent and Pt Satisfied with anesthetic care
[2020-09-08] MEDS: LOTEMAX~ORDER AWAITING ACTION SCH ×4 (11:59→22:53)
--- NOTE | 2020-09-08 14:36 | Hospitalist Progress Note ---
Date of Service September 08, 2020 Assessment & Plan (1) Aspiration pneumonia: Plan: Right lower lobe aspiration pneumonia- continue ertapenem 1 g IV daily as she has PCN allergy on room air, WBC normal, minimal cough change to Levaquin on discharge, complete 7 day course total discharge tomorrow (2) Chronic kidney disease, stage 3a: Plan: Creatinine stable (3) Closed fracture of left hip: Plan: Status post left hip surgery a few days prior to admission Consult PT/OT while in hospital plan to return to rehab at [facility] tomorrow (4) Hypothyroidism: Plan: levothyroxine and liothyronine (5) Hypertension: Plan: resume Cardizem CD 240mg daily BP better, HR stable (6) Depression: Plan: Venlafaxine temporarily on hold (7) Anticoagulated on warfarin: Plan: Hold warfarin. Continue Lovenox at corrected dose of 70 mg subcu daily Resume warfarin on discharge (8) Dysphagia: Plan: EGD today with normal esophagus, it was dilated by GI likely a motility issue discussed soft, easy to chew foods, slippery diet to promote motility Admission and Anticipated Discharge Date Admission Date: September 06, 2020 Subjective patient breathing very well today, continues to be on room air no chest pain, minimal cough had EGD today with normal esophagus, was dilated discussed with her that this won't fix motility issues she is anxious to get back to [facility], told her that transport is arranged for tomorrow at 1430 Review of Systems Review of Systems: All systems reviewed & are unremarkable except as noted in Subjective Constitutional: + weakness; no fever and no fatigue Respiratory: + cough; no dyspnea and no dyspnea on exertion Cardiovascular: no chest pain Gastrointestinal: + dysphagia; no abdominal pain, no nausea, no vomiting, no constipation and no diarrhea/loose stools Physical Exam Constitutional: well developed, + thin, + frail appearing and comfortable; no acute distress and not ill appearing Neck: trachea midline, no thyromegaly Respiratory: normal respiratory effort, lungs clear to auscultation Cardiovascular: RRR, no murmur, no edema Gastrointestinal (Abdomen): normal bowel sounds, soft, nontender, no hepatosplenomegaly Musculoskeletal: Head/Neck/Chest: normocephalic, head atraumatic and neck supple Extremities: extremities normal to inspection and + abnormal strength; no cyanosis, no clubbing and no petechiae Skin: no rashes, warm and dry Neurologic: patellar DTR's 2+ bilat, sensation intact and PERRL, EOMI, accommodation nl, no face palsy, no dysarthria Psychiatric: A+Ox3, euthymic affect Results & Data Results & Data ([facility]) Vital Signs (Past 12 Hours) Vital Signs Temp Pulse Pulse Resp BP BP Pulse Ox 09/08/20 11:54 36.8 C 76 26 H 145/62 H 95 09/08/20 10:29 60 18 103/43 L 96 09/08/20 10:14 60 18 107/43 L 96 09/08/20 09:59 60 18 102/43 L 99 09/08/20 09:25 37.0 C 71 18 137/54 L 98 09/08/20 07:13 36.8 C 75 27 H 168/65 H 100 09/08/20 07:12 36.5 C 67 17 168/65 H 99 09/08/20 03:20 36.7 C 65 21 157/62 H 96 Laboratory Results Laboratory Results - last 24 hr 09/08/20 09/08/20 05:11 05:11 WBC 7.84 RBC 3.49 L Hgb 10.4 L Hct 30.9 L MCV 88.5 MCH 29.8 MCHC 33.7 RDW Std Deviation 47.2 H RDW Coeff of Jessi 14.5 Plt Count 348 MPV 9.4 Immature Gran % (Auto) 1.0 Neut % (Auto) 68.8 Lymph % (Auto) 13.0 [place] % (Auto) 11.4 Eos % (Auto) 5.2 Baso % (Auto) 0.6 Neut # (Auto) 5.39 Lymph # (Auto) 1.02 L [place] # (Auto) 0.89 H Eos # (Auto) 0.41 Baso # (Auto) 0.05 Immature Gran # (Auto) 0.08 H Sodium 135 L Potassium 3.4 L Chloride 102 Carbon Dioxide 27 Anion Gap 6.0 BUN 20 H Creatinine 0.72 Est Cr Clr Drug Dosing 41.1 Est GFR ( Amer) 89.1 Est GFR (Non-Af Amer) 76.9 BUN/Creatinine Ratio 28.5 H Glucose 91 Calcium 8.1 L Medications Administered Current Inpatient Medications Diltiazem HCl (Diltiazem Hcl 240 Mg Capcr) 240 mg PO DAILYBB [facility] Stop: 10/08/20 06:29 Last Admin: 09/08/20 06:14 Dose: 240 mg Documented by: Enoxaparin Sodium (Enoxaparin 80 Mg/0.8 Ml Syr) 70 mg SQ QAM [facility] Stop: 10/06/20 08:59 Last Admin: 09/07/20 08:37 Dose: 70 mg Documented by: Fluticasone/Vilanterol (Fluticasone/Vilanterol 200/25mcg 14 Puffs/Inhaler) 1 puffs INH DAILY [facility] Stop: 10/06/20 08:59 Last Admin: 09/08/20 09:00 Dose: 1 puffs Documented by: Levofloxacin (Levofloxacin 750 Mg Tab) 750 mg PO Q2D@1100 OLLIE; Protocol Stop: 09/16/20 10:59 Miscellaneous (Cmc/Glycerin~Order Awaiting Action) 1 ea N/A QS [facility] Stop: 10/06/20 07:59 Last Admin: 09/08/20 16:14 Dose: Not Given Documented by: Miscellaneous (Lotemax~Order Awaiting Action) 1 ea N/A QS [facility] Stop: 10/06/20 07:59 Last Admin: 09/08/20 16:15 Dose: Not Given Documented by: Ondansetron HCl (Ondansetron Inj 2 Mg/Ml 2 Ml Vial) 4 mg IV Q6H PRN PRN Reason: Nausea Stop: 10/06/20 02:21 PG Care Time/CCT Total # of Minutes Spent Total Time Spent with Patient: Total time spent is greater than 50% in coordination of care (as documented) at patient's floor/unit and/or counseling patient: Coding Level of Care Code 77782 Subseq Hosp Care Lvl 2 Diagnoses Aspiration pneumonia J69.0 Aspiration pneumonia type: unspecified Laterality: right Lung location: lower lobe of lung Chronic kidney disease, stage 3a N18.31 Closed fracture of left hip S72.002A Encounter type: initial encounter Hypothyroidism E03.9 Hypertension I10 Depression F32.9 Anticoagulated on warfarin Z79.01 Dysphagia R13.10 Dysphagia type: unspecified (1) Aspiration pneumonia Aspiration pneumonia type: unspecified Laterality: right Lung location: lower lobe of lung Qualified Code(s): J69.0 - Pneumonitis due to inhalation of food and vomit (2) Closed fracture of left hip Encounter type: initial encounter Qualified Code(s): S72.002A - Fracture of unspecified part of neck of left femur, initial encounter for closed fracture (3) Dysphagia Dysphagia type: unspecified Qualified Code(s): R13.10 - Dysphagia, unspecified
[2020-09-09] MEDS: dilTIAZem HCL 240 MG CAPCR PO SCH (06:06)
[2020-09-09] MEDS: ENOXAPARIN 80 MG/0.8 ML SYR SQ SCH (08:33)
[2020-09-09] MEDS: FLUTICASONE/VILANTEROL 200/25MCG 14 PUFFS/INHALER INH SCH (08:33)
[2020-09-09] MEDS: LOTEMAX~ORDER AWAITING ACTION SCH (08:33)
--- NOTE | 2020-09-09 09:15 | Discharge Summary ---
Date of Service September 09, 2020 Admission HPI Per Admitting Provider dysphagia Principal Diagnosis Aspiration pneumonia right lower lobe Discharge Exam Constitutional well developed, + thin, + frail appearing and comfortable; no acute distress and not ill appearing Neck trachea midline, no thyromegaly Respiratory normal respiratory effort, lungs clear to auscultation Cardiovascular RRR, no murmur, no edema Gastrointestinal (Abdomen) normal bowel sounds, soft, nontender, no hepatosplenomegaly Musculoskeletal Head/Neck/Chest: normocephalic, head atraumatic and neck supple Extremities: extremities normal to inspection and + abnormal strength; no cyanosis, no clubbing and no petechiae Skin no rashes, warm and dry Neurologic patellar DTR's 2+ bilat, sensation intact and PERRL, EOMI, accommodation nl, no face palsy, no dysarthria Psychiatric A+Ox3, euthymic affect Discharge Data Allergies Allergy/AdvReac Type Severity Reaction Status Date / Time codeine Allergy Intermediate VOMITTING Verified 09/05/20 22:10 COFFEE GROUNDS latex Allergy Mild Rash Verified 08/25/20 15:31 Penicillins Allergy Mild RASH Verified 09/05/20 22:10 Sulfa (Sulfonamide Allergy Mild RASH Verified 09/05/20 22:10 Antibiotics) ephedrine Allergy Unknown Unknown Verified 09/05/20 22:10 Consultations 09/06/20 13:20 Consult Gastroenterology Routine Procedures Performed Operation Date: 09/08/20 16:00 Actual Procedures p EGD Dilatation - Danuta Bruce, Ordered Studies 09/05/20 21:15 CT angio chest PE protocol Urgent 09/06/20 11:00 FL video swallow Routine Hospital Course (1) Aspiration pneumonia: Right lower lobe aspiration pneumonia- treated with ertapenem 1 g IV daily as she has PCN allergy on room air for several days, WBC normal, minimal cough changed to Levaquin on discharge, complete 2 more doses on 09/11 and 09/13 (2) Dysphagia: EGD 09/08 with normal esophagus, it was dilated by GI likely a motility issue discussed soft, easy to chew foods, slippery diet to promote motility typical aspiration precautions, fully upright for meals, stay upright for 30 minutes after meals chew foods completely, avoid dry/sticky foods use a lot of gravy, sauces, alternate solids and thin liquids to keep food moist (3) Chronic kidney disease, stage 3a: Creatinine stable (4) Closed fracture of left hip: Status post left hip surgery a few days prior to admission Consult PT/OT while in hospital plan to return to rehab at [facility] follow up with [facility] in 10-14 days (5) Hypothyroidism: levothyroxine and liothyronine (6) Hypertension: resume Cardizem CD 240mg daily BP better, HR stable (7) Depression: Venlafaxine (8) Anticoagulated on warfarin: Held warfarin on admission with plans for EGD Continue Lovenox at corrected dose of 70 mg subcu daily Resume warfarin on discharge she takes this chronically for afib, stop Lovenox once INR is 2.0 Total Time Total Time Spent Total Time Spent (In Minutes): 33 Total Time Includes: Examination of the Patient, Discharge Planning, Medication Reconciliation and Communication With Other Providers Discharge Plan Discharge Items Patient Disposition: Transfer [facility] Reason For Visit: ASPIRATION PNEUMONIA Discharge Diagnosis: Right lower lobe aspiration pneumonia Dysphagia, esophageal dysmotility Condition on Discharge: Good Goals: aspiration precautions complete a few more days of Levaquin Activity: Resume your previous activity Activity Comment: continue with rehab from hip fracture Weightbearing: Left weightbearing Weightbearing Comment: as tolerated on left leg Non-emergency contact: Primary Care Provider Call non-emergency contact if: you have any medication questions Follow-up/Referrals: Edmond Matamoros [Primary Care Provider] - (one week) Lucía Butler PA-C [Physician Smog Technician] - (follow up [facility] in 10-14 days, post op hip fracture left) Diet: Regular Addtl Attending Provider Instructions: Medications: - LEVAQUIN: 750mg every other day, take on 09/11 and 09/13 then stop - COUMADIN: this was held while here due to getting EGD, please resume on return to [facility] with Lovenox, stop Lovenox once INR is 2.0 she takes Coumadin chronically for paroxysmal atrial fibrillation Aspiration pneumonia: responded quickly to antibiotics, no fever, WBC normal, breathing room air for several days complete two more doses of Levaquin Dysphagia, esophageal dysmotility had EGD that showed normal esophagus, it was dilated, won't help with dysmotility speech therapy recommends SLIPPERY diet, thin liquids, avoid dry foods that can clump, if eating chicken/meat be sure have sauces/gravy, chew really well typical aspiration precautions, stay upright 30 minutes after meals, eat fully upright, eat slowly Pending Studies at Discharge: No Stand-Alone Forms: [facility] Skilled Items Patient informed of condition?: Yes DNR: No Discharge Level of Care: Acute rehab Communicable Disease: No Discharge Prognosis: Stable Lines: None Urinary Catheter: No Medications and DC Order Prescriptions: New levofloxacin 750 mg Tablet 750 mg PO Q2D@1100 3 Days Qty: 2 RF: 0 Continued fluticasone propion-salmeterol [Advair Diskus] 250-50 mcg/dose Blister With Device 1 inh INHALATION Q12H RF: 0 diltiazem HCl [Cardizem CD] 240 mg Capsule,Extended Release 24hr 240 mg PO DAILYBB RF: 0 potassium chloride 10 mEq Tablet Extended Release 10 meq PO QAM RF: 0 fexofenadine [Trixie Allergy] 180 mg Tablet 180 mg PO DAILY PRN (Reason: ALLERGY RELIEF) RF: 0 valacyclovir 500 mg Tablet 500 mg PO QAM RF: 0 liothyronine 5 mcg Tablet 5 mcg PO DAILYBB RF: 0 levothyroxine 50 mcg Tablet 50 mcg PO MOTUWETHFRSA RF: 0 albuterol sulfate [ProAir HFA] 90 mcg/actuation Hfa Aerosol Inhaler 1 puff INHALATION Q12 PRN (Reason: SHORT OF BREATH) RF: 0 cholecalciferol (vitamin D3) [Vitamin D3] 1,000 unit Capsule 1,000 unit PO QAM RF: 0 omeprazole 20 mg Tablet,Delayed Release (Dr/Ec) 20 mg PO QAM RF: 0 PreserVision AREDS [id number] [id number] Tablet 1 tab PO BIDM RF: 0 loteprednol etabonate [Lotemax] 0.5 % Drops,Gel 1 drp OPR HS RF: 0 sennosides [senna] 8.6 mg Tablet 8.6 mg PO QDD RF: 0 warfarin 5 mg tablet 5 mg PO QPM RF: 0 vitamin B complex Tablet 1 tab PO QAM RF: 0 Lubricant Eye (cmc-glycerin) 0.5-0.9 % Drops 1 drp OPL HS RF: 0 enoxaparin 80 mg/0.8 mL syringe 80 mg subcut QAM RF: 0 acetaminophen 500 mg Tablet 1,000 mg PO TID RF: 0 polyethylene glycol 3350 [Miralax] 17 gram/dose Powder 17 g PO QAM RF: 0 venlafaxine 75 mg capsule,extended release 24hr 75 mg PO QAM RF: 0 Discharge Orders: Discharge Order (Routine); Ordered 09/09/20 Ordered By: Justin Sanchez Admission Data Admit Date/Time: 09/06/20 00:56 Attending Provider: Justin Sanchez Admit Provider: Seth Dent Primary Care Provider: Edmond Matamoros Other Providers: Migdalia Sanchez ; Kary Suero ; Nithya White ; Cristiana Aceves ; Henry Oneal ; Aris Enriquez ; Joey Cintron ; Simón Kinsey ; Anette Fernandes ; Danuta Bruce ; Michelle Shaw ; Socorro Alanis ; Cecil Oviedo Other Interventions: Discharge Summary Assessment (RN) Last Done: 09/08/20 10:14 Coding Level of Care Code D/C DAY MANAGEMENT >30 MINS Diagnoses Aspiration pneumonia J69.0 Aspiration pneumonia type: unspecified Laterality: right Lung location: lower lobe of lung Chronic kidney disease, stage 3a N18.31 Closed fracture of left hip S72.002A Encounter type: initial encounter Hypothyroidism E03.9 Hypertension I10 Depression F32.9 Anticoagulated on warfarin Z79.01 Dysphagia R13.10 Dysphagia type: unspecified
[2020-09-09] MEDS ORDERED: levoFLOXacin 750 MG TAB PO SCH (11:00)
== END 2020-09-09 15:52 | DRG 179 ==
LOC: ED 20:57 → 1E 09-06 00:56 → SUATTDRO 09-06 00:56 → 1E 09-06 01:54 → 3W 09-08 14:36

== ENCOUNTER 2023-03-01 19:44 | Inpatient (IN) ==
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
[2023-03-01 21:02] LABS: Basophils % (auto) 1.7 %; Eosinophils # (auto) 0.28 K/uL (0.00-0.50); Eosinophils % (auto) 4.8 %; Hematocrit (blood only) 37.4 % (37.0-47.0); Hemoglobin 12.4 g/dl (12.0-16.0); Immature Granulocytes # (auto) 0.01 K/uL (0.01-0.20); Immature Granulocytes % (auto) 0.2 %; Lymphocytes # (auto) 1.24 K/uL (1.20-3.40); Lymphocytes % (auto) 21.1 %; Mean Corpuscular Hemoglobin 30.5 pg (25.0-34.0); Mean Corpuscular Hgb Conc 33.2 g/dL (32.0-36.0); Mean Corpuscular Volume 92.1 fL (80.0-100.0); Mean Platelet Volume 10.4 fL (9.4-12.4); Monocytes % (auto) 11.9 %; Neutrophils # (auto) 3.55 K/uL (1.40-6.50); Neutrophils % (auto) 60.3 %; Platelet Count 202 K/uL (130-400); RDW Coefficient of Variation 15.1 % (11.5-14.5); RDW Standard Deviation 50.8 fL (36.4-46.3); Red Blood Count 4.06 M/uL (4.20-5.40); White Blood Count 5.88 K/ul (4.8-10.8)
[2023-03-01 21:06] LABS: Albumin Globulin Ratio 1.6 (0.9-2); Albumin Level 4.1 gm/dl (3.4-5.0); BUN Creatinine Ratio 47.4 (10-20); Bilirubin,Total 0.4 mg/dl (0.2-1.0); Calcium 9.4 mg/dl (8.6-10.3); Creatinine Clr Calc Pharmacy 36.8 ml/min; Est GFR (African American) 79.8 ml/min; Est GFR (Non-African American) 68.8 ml/min; Globulin 2.6 gm/dl (2.5-4.0); Potassium 4.1 mmol/L (3.5-5.1); Total Protein 6.7 gm/dl (6.0-8.3)
[2023-03-01 21:29] LABS: Partial Thromboplastin Ratio 0.9; Partial Thromboplastin Time 25 Seconds (21-31)
--- NOTE | 2023-03-01 21:50 | Emergency Department Note ---
ED Visit Note I was consulted in regards to the patient's presentation and plan of care by the Advanced Practice Provider. I engaged in a detailed/meaningful discussion with the Advanced Practice Provider in regards to this patient's workup and plan of care. Please see the Advanced Practice Provider's note for full details of the patient encounter. I agree with the assessment and plan of Keli Montanez PA-C. Gavin Wilkerson, DO Emergency Medicine .
[2023-03-01] MEDS ORDERED: fentaNYL citrate PF 100 MCG/2 ML VIAL IV STA (21:53)
[2023-03-01] MEDS ORDERED: fentaNYL citrate PF 100 MCG/2 ML VIAL IV ONE (21:54)
--- NOTE | 2023-03-01 22:06 | CT Scan Report ---
Exam(s): CT HEAD Without Contrast EXAM: CT Head Without Intravenous Contrast CLINICAL HISTORY: Reason for exam: fall, on eliquis. TECHNIQUE: Axial computed tomography images of the head/brain without intravenous contrast. CTDI is 38.78 mGy and DLP is 625.8 mGy-cm. Automated exposure control was utilized for the study. A dose lowering technique was utilized adhering to the principles of ALARA. 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 Moderate periventricular white matter changes, likely related to microangiopathy. No hemorrhage. Ventricles: Mild ventriculomegaly out of proportion to the sulcal atrophy. Bones/joints: Unremarkable. No acute fracture. Soft tissues: Unremarkable. Sinuses: Unremarkable as visualized. No acute sinusitis. Mastoid air cells: Unremarkable as visualized. No mastoid effusion. IMPRESSION: Mild ventriculomegaly out of proportion to the sulcal atrophy. No acute intracranial abnormality. Electronically signed by: Deonte Shaw M.D. 03/01/23 22:06 PM
[2023-03-01] MEDS ORDERED: ONDANSETRON INJ 2 MG/ML 2 ML VIAL IV STA (22:42)
[2023-03-01] MEDS ORDERED: MoRPHine SULFATE 2 MG/ML CARP IV STA (22:42)
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
[2023-03-02] MEDS ORDERED: MAGNESIUM HYDROXIDE SUSP 30 ML UDC PO PRN (00:53)
[2023-03-02] MEDS ORDERED: NALOXONE HCL 0.4 MG/1 ML VIAL/CARP IV PRN (00:53)
[2023-03-02] MEDS ORDERED: ALBUT/IPRATROP 3MG/0.5MG NEB 3 ML VIAL NEB PRN (00:53)
[2023-03-02] MEDS ORDERED: ACETAMINOPHEN 1000 MG/100 ML IV IV PRN (00:53)
[2023-03-02] MEDS ORDERED: ONDANSETRON INJ 2 MG/ML 2 ML VIAL IV PRN (00:53)
[2023-03-02] MEDS ORDERED: HYDROmorphone INJ 0.5 MG/0.5 ML SYR IV PRN (00:53)
[2023-03-02] MEDS ORDERED: NSS + 20MEQ KCL 20 MEQ/1,000 ML BAG IV SCH (00:53)
[2023-03-02] MEDS ORDERED: bisacodyL 10 MG SUPP PR PRN (00:53)
[2023-03-02] MEDS ORDERED: ACETAMINOPHEN 1,000 MG/100 ML VIAL IV PRN (01:14)
[2023-03-02] MEDS: HYDROmorphone INJ 0.5 MG/0.5 ML SYR IV PRN ×2 (01:23→06:07)
[2023-03-02 03:11] LABS: Appearance Urine Clear (Clear); Bacteria Urine Automated Negative (Negative); Bilirubin Urine Negative (Negative); Blood Urine 1+ (Negative); Cast Urine Automated 0 /lpf (0-5); Color Urine Yellow; Epithelial Cell Urine Auto >30 /lpf (0-5); Glucose Urine UA Negative (Negative); Ketones Urine Negative (Negative); Leukocyte Esterase Urine Negative (Negative); Nitrite Urine Negative (Negative); Protein Urine Negative (Negative); Specific Gravity Urine 1.016 (1.000-1.030); Urobilinogen Urine Negative (Negative); pH Urine 6.5 (4.5-7.5)
[2023-03-02 07:11] LABS: Basophils # (auto) 0.08 K/uL (0.00-0.20); Basophils % (auto) 0.9 %; Eosinophils # (auto) 0.14 K/uL (0.00-0.50); Eosinophils % (auto) 1.5 %; Hematocrit (blood only) 35.6 % (37.0-47.0); Hemoglobin 11.9 g/dl (12.0-16.0); Immature Granulocytes # (auto) 0.03 K/uL (0.01-0.20); Immature Granulocytes % (auto) 0.3 %; Lymphocytes # (auto) 0.79 K/uL (1.20-3.40); Lymphocytes % (auto) 8.7 %; Mean Corpuscular Hemoglobin 30.6 pg (25.0-34.0); Mean Corpuscular Hgb Conc 33.4 g/dL (32.0-36.0); Mean Corpuscular Volume 91.5 fL (80.0-100.0); Mean Platelet Volume 9.9 fL (9.4-12.4); Monocytes # (auto) 1.06 K/uL (0.11-0.59); Monocytes % (auto) 11.6 %; Neutrophils # (auto) 7.01 K/uL (1.40-6.50); Platelet Count 183 K/uL (130-400); RDW Coefficient of Variation 15.1 % (11.5-14.5); RDW Standard Deviation 49.9 fL (36.4-46.3); Red Blood Count 3.89 M/uL (4.20-5.40); White Blood Count 9.11 K/ul (4.8-10.8)
[2023-03-02 07:32] LABS: Albumin Level 3.7 gm/dl (3.4-5.0); BUN Creatinine Ratio 43.9 (10-20); Calcium 8.5 mg/dl (8.6-10.3); Creatinine Clr Calc Pharmacy 45.6 ml/min; Est GFR (African American) 97.3 ml/min; Est GFR (Non-African American) 83.9 ml/min; Magnesium 1.9 mg/dl (1.7-2.4); Phosphorus 3.3 mg/dl (2.5-4.9); Potassium 4.2 mmol/L (3.5-5.1)
--- NOTE | 2023-03-02 08:37 | XRay Report ---
XR hip RT 2V w pelvis CLINICAL HISTORY: right hip pain, fall TECHNIQUE: 2 views of the right hip and single frontal view of the pelvis were obtained. Comparison: Comparison is made to hip and pelvis radiograph 08/31/2020 FINDINGS: There is a minimally impacted subcapital fracture of the right hip. Status post left total hip arthro plasty. No soft tissue abnormality is seen. IMPRESSION: Minimally impacted subcapital fracture of the right hip. ACT 112: Negative or not required by law. Electronically signed by: Justin Prado M.D. 03/02/2023 8:35 AM
[2023-03-02] MEDS: dilTIAZem HCL 180 MG CAPCR PO SCH (08:56)
[2023-03-02] MEDS: FAMOTIDINE 20 MG in SYRINGE 3 ML IV SCH (08:56)
[2023-03-02] MEDS: FLUTICASONE/VILANTEROL 200/25MCG 14 PUFFS/INHALER INH SCH (08:56)
[2023-03-02] MEDS ORDERED: HEPARIN SOD 5,000 UNIT/0.5 ML VIAL SQ SCH (09:00)
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
[2023-03-02] MEDS ORDERED: POLYETHYLENE (MIRALAX) 17 GM PACK PO PRN (12:31)
[2023-03-02] MEDS: SENNA 8.6 MG TAB PO SCH (13:38)
--- NOTE | 2023-03-02 13:53 | Hospitalist Progress Note ---
Date of Service March 02, 2023 Assessment & Plan (1) Closed right hip fracture: Plan: Closed right hip fracture/status post ground-level fall- Consult orthopedic surgery - Unable to operate today 2/2 pt took apixaban 03/01 - Plan for OR this weekend - NPO at midnight Pain control - Scheduled Tylenol, Dilaudid 0.25mg and 0.5mg - Hesistant to increase dose as patient became hypoxic after Dilaudid Zofran 4 mg IV every 6 hours as needed NSS + KCl 20 mEq at 80 mL/h Vit D: 30 - PO replacement ordered (2) Paroxysmal atrial fibrillation: Plan: Paroxysmal atrial fibrillation/hypertension -Pacemaker in place Last dosing of apixaban was after supper this evening on 03/01, and further will be held Continue diltiazem CD100 80 mg daily (3) Asthma: Plan: Continue Advair Diskus/Breo elliptica DuoNebs every 2 hours as needed (4) Vocal fold paralysis, right: Plan: chronic, stable (5) Chronic kidney disease, stage 3a: Plan: Creatinine 0.57, GFR 83.9 (6) Gastroesophageal reflux disease: Plan: Continue Famotidine (7) Hypertension: Plan: cardizem as above (8) Body mass index (BMI) of 19 or less in adult: Plan: Underweight, BMI 15.9 kg/m*m likely exacerbated by patient vocal cord paralysis Plan Dispo: continued inpatient stay, plan for OR tomorrow DVT ppx: Heparin q12 Admission and Anticipated Discharge Date Admission Date: March 01, 2023 Subjective Patient seen sitting up in bed eating lunch. Reports pain in her right hip with any movement. Also feels like the area spasms. Good appetite. Has not had a BM. Mechanical fall after not using her walker. Patient was rushing, no prodromal symptoms. Per nursing became hypoxic with the 0.5mg dose of diluadid. Review of Systems Review of Systems: All systems reviewed & are unremarkable except as noted in Subjective Physical Exam Physical Exam: General: NAD, VS as above Resp: normal respiratory effort, lungs clear to auscultation CV: RRR, no murmur, Abd: normal bowel sounds, non tender, no hepatosplenomegaly Extremities: I did not attempt to move the right leg, patient clearly with episodes of pain. distal pulses intact. Neuro: A&O x3, Skin: intact, no lesions noted Results & Data Results & Data Vital Signs (Past 12 Hours) Vital Signs Temp Pulse Resp BP Pulse Ox O2 Del Method O2 Flow Rate 03/02/23 08:00 Nasal Cannula 2 03/02/23 07:56 36.5 C 75 16 168/69 H 99 Nasal Cannula 2 03/02/23 05:46 36.5 C 85 157/75 H 99 Nasal Cannula 2 Laboratory Results CBC and Chemistry reviewed Diagnostic Findings hip xray reviewed PG Care Time/CCT Total # of Minutes Spent Total Time Spent with Patient: Total time spent is greater than 50% in coordination of care (as documented) at patient's floor/unit and/or counseling patient: Coding Level of Care Code 99322 SUB INP/OBS CARE 2/35MIN Diagnoses Closed right hip fracture S72.001A Paroxysmal atrial fibrillation I48.0 Asthma J45.909 Vocal fold paralysis, right J38.01 Chronic kidney disease, stage 3a N18.31 Gastroesophageal reflux disease K21.9 Hypertension I10 Body mass index (BMI) of 19 or less in adult Z68.1
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
[2023-03-02] MEDS: ACETAMINOPHEN 1,000 MG/100 ML VIAL IV SCH ×2 (15:51→23:29)
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
--- NOTE | 2023-03-02 17:26 | Electrocardiogram Report ---
Test Reason : Blood Pressure : / mmHG Vent. Rate : 080 BPM Atrial Rate : 080 BPM P-R Int : 170 ms QRS Dur : 164 ms QT Int : 452 ms P-R-T Axes : 086 -85 092 degrees QTc Int : 521 ms Atrial-sensed ventricular-paced rhythm Abnormal ECG When compared with ECG of 17-JUN-2022 15:39, Vent. rate has increased BY 20 BPM Confirmed by Nestor Milner ([id number]) on 03/02/2023 5:26:12 PM Referred By: REFERRED SELF Confirmed By:Mayo Milner
[2023-03-03] MEDS ORDERED: ROPIV 0.5% 246mg, Ketorolac 30mg, EPINEPHrine 0.5mg in NSS INFIL SCH (06:00)
[2023-03-03 07:06] LABS: Basophils # (auto) 0.11 K/uL (0.00-0.20); Basophils % (auto) 1.1 %; Eosinophils # (auto) 0.39 K/uL (0.00-0.50); Eosinophils % (auto) 3.9 %; Hematocrit (blood only) 36.9 % (37.0-47.0); Hemoglobin 12.6 g/dl (12.0-16.0); Immature Granulocytes # (auto) 0.04 K/uL (0.01-0.20); Immature Granulocytes % (auto) 0.4 %; Mean Corpuscular Hemoglobin 31.2 pg (25.0-34.0); Mean Corpuscular Hgb Conc 34.1 g/dL (32.0-36.0); Mean Corpuscular Volume 91.3 fL (80.0-100.0); Mean Platelet Volume 10.7 fL (9.4-12.4); Monocytes # (auto) 1.02 K/uL (0.11-0.59); Monocytes % (auto) 10.2 %; Neutrophils # (auto) 7.78 K/uL (1.40-6.50); Neutrophils % (auto) 77.4 %; Platelet Count 192 K/uL (130-400); RDW Coefficient of Variation 15.3 % (11.5-14.5); RDW Standard Deviation 50.4 fL (36.4-46.3); Red Blood Count 4.04 M/uL (4.20-5.40); White Blood Count 10.04 K/ul (4.8-10.8)
[2023-03-03 07:39] LABS: Albumin Level 3.8 gm/dl (3.4-5.0); BUN Creatinine Ratio 25.7 (10-20); Calcium 9.2 mg/dl (8.6-10.3); Creatinine Clr Calc Pharmacy 35.1 ml/min; Est GFR (Non-African American) 73.4 ml/min; Phosphorus 3.1 mg/dl (2.5-4.9); Potassium 4.3 mmol/L (3.5-5.1)
[2023-03-03] MEDS: dilTIAZem HCL 180 MG CAPCR PO SCH (08:39)
[2023-03-03] MEDS: FAMOTIDINE 20 MG in SYRINGE 3 ML IV SCH (08:41)
[2023-03-03] MEDS: ACETAMINOPHEN 1,000 MG/100 ML VIAL IV SCH (08:41)
[2023-03-03] MEDS: FLUTICASONE/VILANTEROL 200/25MCG 14 PUFFS/INHALER INH SCH (08:42)
[2023-03-03] MEDS: SENNA 8.6 MG TAB PO SCH (08:42)
[2023-03-03] MEDS ORDERED: ePHEDrine sulfate 50 MG/ML AMP IV PRN (09:02)
[2023-03-03] MEDS ORDERED: ONDANSETRON INJ 2 MG/ML 2 ML VIAL IV PRN (09:02)
[2023-03-03] MEDS ORDERED: ATROPINE SULFATE 0.1 MG/ML 10ML SYR IV PRN (09:02)
[2023-03-03] MEDS ORDERED: fentaNYL citrate PF 100 MCG/2 ML VIAL IV PRN (09:02)
--- NOTE | 2023-03-03 09:26 | History & Physical Bridge Note ---
Date of Service March 03, 2023 History & Physical Bridge Note I have examined the patient, reviewed the History & Physical and in the interval since the performance of the History & Physical I have noted the following changes of clinical significance: no changes noted met with the patient. I had a lengthy discussion with her regarding risk benefits potential complications of right hip hemiarthroplasty for her displaced right femoral neck fracture. These include but are not limited to: Fracture, dislocation, neurovascular injury, DVT, leg length discrepancy, and need for future surgery. After reviewing these she elected to proceed with surgical intervention and written consent was obtained.
[2023-03-03] MEDS ORDERED: ONDANSETRON INJ 2 MG/ML 2 ML VIAL ONE (09:32)
[2023-03-03] MEDS ORDERED: LIDOCAINE 2% 2 ML VIAL/AMP(20MG/ML) INFIL ONE (09:32)
[2023-03-03] MEDS ORDERED: fentaNYL citrate PF 100 MCG/2 ML VIAL ONE (09:32)
[2023-03-03] MEDS ORDERED: PROPOFOL IV EMULSION 10 MG/ML 20 ML VIAL IV ONE (09:32)
[2023-03-03] MEDS ORDERED: PHENYLEPHRINE HCL 10 MG/ML VIAL ONE (09:32)
[2023-03-03] MEDS ORDERED: LABETALOL HCL IV 5 MG/ML 20ML IV ONE (10:41)
[2023-03-03] MEDS ORDERED: ceFAZolin 330 MG/ML 1 GM VIAL IM ONE (11:28)
--- NOTE | 2023-03-03 11:57 | Post Operative Brief Note ---
Immediate Post Op Note v1 Date of Surgery March 03, 2023 Pre & Post Diagnosis Operation Date: 03/03/23 08:50 Pre-Op Diagnosis: Closed Fracture, Right Hip Post-Op Diagnosis: Closed Fracture, Right Hip I identified the patient and participated in the time-out.: Yes Procedure Operation Date: 03/03/23 08:50 Actual Procedures p Right Hip Hemiarthroplasty(Right) - Elijah Ohara DO Surgeon Eljiah Ohara DO Process Line Operator none Estimated Blood Loss 50 Findings Consistent with Post-Op Diagnosis see dictation Drains Ko Catheter (Pt arrived to the OR with ko in) Complications none
--- NOTE | 2023-03-03 12:06 | Operative Report ---
Post Operative Report Pre & Post Diagnosis Operation Date: 03/03/23 08:50 Pre-Op Diagnosis: Closed Fracture, Right Hip Post-Op Diagnosis: Closed Fracture, Right Hip I identified the patient and participated in the time-out.: Yes Procedure Operation Date: 03/03/23 08:50 Actual Procedures p Right Hip Hemiarthroplasty(Right) - Elijah Ohara DO Surgeon Elijah Ohara DO Manager none Estimated Blood Loss 50 Findings Consistent with Post-Op Diagnosis none Specimens femoral head Complications none Indications 87-year-old female presenting after sustaining a ground-level fall with right hip pain and inability to ambulate. In the emergency department radiographs were obtained demonstrating displaced right femoral neck fracture. Patient was admitted to medical service and orthopedics was consulted for operative management. Prior to the surgery I did meet with the patient and we had a lengthy discussion regarding risk benefits potential complications of right hip hemiarthroplasty. After reviewing these she elected to proceed with surgical intervention and written consent was obtained. Description of Procedure Implants: Carlos 12 mm x 125 mm LDFX cemented stem, 45 mm bipolar head, 28 mm liner with 28 mm cobalt chrome head, 12 mm distal centralizer Procedure: Patient was appropriate marked and identified in the preoperative holding area. They were then taken back to the operative suite where they received anesthesia as well as antibiotics per protocol. They are positioned in the lateral decubitus position with the right hip facing upwards. Patient was then prepped and draped in the standard orthopedic fashion a timeout was then performed. Incision was then made over the posterior lateral aspect of the hip with a scalpel. Electrocautery was used to dissect down to the IT band and gluteal fascia which was then split in line with the incision. Charnley retractor was then placed. Retractors were then placed. Piriformis was then identified and then reflected off the posterior capsule. T capsulotomy was then performed and gush of fracture hematoma was noted. The femoral head was noted to be displaced. Femoral head was then successfully removed with a tenaculum. Any residual bone fragments were then removed. A femoral neck osteotomy was then made approximately 1 cm above the tip of the lesser trochanter with a saw. Any residual bone fragments were then removed. Trialing was then performed and a 45 mm bipolar head was noted to have excellent suction fit. Attention was then turned to preparation of the femoral canal. Box osteotome was first used followed by a canal finding reamer. The canal was then sequentially broached up to a size 12 mm stem. Trialing was then performed with a standard offset 45 mm bipolar head. The hip was successfully reduced. Leg length as well as stability were noted to be satisfactory. The hip was then successfully dislocated and all trial components were then removed. Cement restrictor was then placed in the femoral canal. The femoral canal was then copiously irrigated and cleaned with a brush. The canal was then dried. Cement was then mixed and was then pressurized into the femoral canal. Femoral stem was then inserted. Any excessive cement was then removed. Stem was then held in place while the cement was allowed to harden. Once the cement had hardened a 45 mm bipolar head with 28 mm +0 inner head was then inserted onto the trunnion with several wrist taps. The hip was then successfully relocated. Once again range of motion and stability were assessed and noted to be satisfactory. At this point the wound was then copiously irrigated using dilute Betadine solution followed by normal saline solution. Capsulotomy was then closed in a [id number] fashion using 1-0 Ethilon suture. Charnley retractor was then removed. Ortho mix was then injected into the subcutaneous tissues. Deep subcutaneous closure was then performed using 2-0 Vicryl. 2-0 strata fix was then used to close the subcutaneous tissue followed by mike for the skin. A sterile Silverlon dressing was placed. Patient tolerated the procedure well and was taken to the recovery room in hemodynamically stable condition. I attest to the content of the Intraoperative Record and any orders documented therein. Any exceptions are noted below.
--- NOTE | 2023-03-03 12:24 | Anesthesiology Progress Note ---
Date of Service March 03, 2023 Anesthesia Post Procedure Vital Signs Vital Signs: Temp Pulse Pulse Resp BP BP Pulse Ox 03/03/23 12:15 67 20 156/78 H 96 03/03/23 12:05 65 20 166/55 H 97 03/03/23 11:56 97.5 F L 68 17 172/72 H 96 03/03/23 08:38 71 17 164/76 H 100 03/03/23 07:23 98.4 F 63 16 159/73 H 99 03/03/23 07:20 03/02/23 19:55 03/02/23 19:19 98.1 F 82 14 143/76 H 97 03/02/23 14:52 98.1 F 77 14 154/72 H 100 O2 Del Method O2 Flow Rate 03/03/23 12:15 Nasal Cannula 2 03/03/23 12:05 Nasal Cannula 2 03/03/23 11:56 Nasal Cannula 4 03/03/23 08:38 Nasal Cannula 2 03/03/23 07:23 Nasal Cannula 2 03/03/23 07:20 Nasal Cannula 03/02/23 19:55 Nasal Cannula 2 03/02/23 19:19 Nasal Cannula 2 03/02/23 14:52 Nasal Cannula 2 Pain Intensity Right Hip: Pain Intensity: 3 Transfer of Care Handoff Completed per policy Notes Mental Status: alert / awake / arousable and participated in evaluation Patient Amnestic to Procedure: Yes Nausea / Vomiting: adequately controlled Pain: adequately controlled Airway Patency, RR, SpO2: stable & adequate BP & HR: stable & adequate Hydration State: stable & adequate Anesthetic Complications: no major complications apparent and Pt Satisfied with anesthetic care
--- NOTE | 2023-03-03 13:27 | XRay Report ---
XR pelvis 1-2V routine CLINICAL HISTORY: PACU - Post Surgical TECHNIQUE: A single frontal view of the pelvis was obtained. Comparison: Comparison is made to hip radiograph 03/01/2023 FINDINGS: Patient is status post total hip arthroplasty with expected postsurgical changes including soft tissu e swelling, and subcutaneous emphysema. No periarticular lucency or hardware fracture is seen. IMPRESSION: Expected postoperative appearance status post placement of total hip arthroplasty. ACT 112: Negative or not required by law. Electronically signed by: Justin Prado M.D. 03/03/2023 1:26 PM
[2023-03-03] MEDS: SODIUM CHLORIDE 0.9% 1,000 ML IV SCH (14:32)
--- NOTE | 2023-03-03 15:33 | Hospitalist Progress Note ---
Date of Service March 03, 2023 Assessment & Plan (1) Closed right hip fracture: Plan: Closed right hip fracture/status post ground-level fall- Consult orthopedic surgery - Unable to operate same day / pt took apixaban 03/01 - S/p Right hip hemiarthroplasty 03/03 - Resumed diet postoperatively and tolerating Pain control - Scheduled Tylenol; Dilaudid 0.25mg and 0.5mg; Home lyrica resumed postoperatively Zofran 4 mg IV every 6 hours as needed NSS + KCl 20 mEq at 80 mL/h Vit D: 30 - PO replacement Patient on prolia outpatient (2) Paroxysmal atrial fibrillation: Plan: Paroxysmal atrial fibrillation/hypertension -Pacemaker in place Last dosing of apixaban was after supper evening on 03/01, will continue postoperatively per ortho order Continue diltiazem CD100 80 mg daily (3) Asthma: Plan: Continue Advair Diskus/Breo elliptica DuoNebs every 2 hours as needed (4) Vocal fold paralysis, right: Plan: chronic, stable (5) Chronic kidney disease, stage 3a: Plan: CTM with daily labs (6) Gastroesophageal reflux disease: Plan: Continue Famotidine (7) Hypertension: Plan: cardizem as above (8) Body mass index (BMI) of 19 or less in adult: Plan: Underweight, BMI 15.9 kg/m*m likely exacerbated by patient vocal cord paralysis (9) Hypothyroidism: Plan: Continue home levothyroxine and liothyronine (10) Postoperative hypoxia: Plan: No supplemental O2 at baseline Encouraged incentive spirometry Wean O2 Plan Dispo: continued inpatient stay, F/u PT/OT recs DVT ppx: resume apixaban per ortho orders Admission and Anticipated Discharge Date Admission Date: March 01, 2023 Subjective Patient seen after hip surgery performed. She reports she is doing well. Denies any shortness of breath or chest pain. Does have have nasal cannula for supplemental oxygenshe denies using any oxygen at baseline. Denies any abdominal pain. Has not had any bowel movement since surgery. Perez catheter in place without any concerns per patient. Pain tolerable at this stage. Review of Systems Review of Systems: Per subjective Physical Exam Physical Exam: General: Well-appearing, NAD HEENT: NC in place Cardiovascular: RRR, no M/R/G Pulmonary: CTAB anteriorly Abdomen: Soft, NT/ND, no guarding : Perez catheter in place draining clear yellow urine Extremities: RLE with overlying bandage anterolateral thigh without complications. No pedal edema Integumentary: No suspicious rash or lesion on exposed skin Neurologic: AAOx3, no focal deficits Psychiatric: Appropriate mood/affect Results & Data Results & Data Vital Signs (Past 12 Hours) Vital Signs Temp Pulse Pulse Resp BP BP Pulse Ox 03/03/23 15:04 36.8 C 60 17 125/72 97 03/03/23 14:00 36.7 C 60 17 128/66 98 03/03/23 14:00 36.7 C 61 16 127/66 96 03/03/23 13:30 37.8 C H 62 15 141/61 H 95 03/03/23 12:58 36.9 C 61 18 149/74 H 94 03/03/23 12:35 36.7 C 60 18 163/59 H 93 03/03/23 12:25 67 21 168/66 H 96 03/03/23 12:15 67 20 156/78 H 96 03/03/23 12:05 65 20 166/55 H 97 03/03/23 11:56 36.4 C L 68 17 172/72 H 96 03/03/23 08:38 71 17 164/76 H 100 03/03/23 07:23 36.9 C 63 16 159/73 H 99 03/03/23 07:20 O2 Del Method O2 Flow Rate 03/03/23 15:04 Nasal Cannula 1 03/03/23 14:00 Nasal Cannula 1 03/03/23 14:00 Room Air 03/03/23 13:30 Nasal Cannula 2 03/03/23 12:58 Nasal Cannula 1 03/03/23 12:35 Room Air 0 03/03/23 12:25 Room Air 0 03/03/23 12:15 Nasal Cannula 2 03/03/23 12:05 Nasal Cannula 2 03/03/23 11:56 Nasal Cannula 4 03/03/23 08:38 Nasal Cannula 2 03/03/23 07:23 Nasal Cannula 2 03/03/23 07:20 Nasal Cannula Laboratory Results Reviewed CBC, phosphorus, and BMP from todayoverall unremarkable including normalization of hemoglobin at 12.6 Urine culture 03/02 less than 1000 colonies per mL Diagnostic Findings Pelvis x-ray from 03/03 with expected postoperative appearance status post placement of total hip arthroplasty PG Care Time/CCT Total # of Minutes Spent Total Time Spent with Patient: Total time spent is greater than 50% in coordination of care (as documented) at patient's floor/unit and/or counseling patient: Coding Level of Care Code 54255 SUB INP/OBS CARE 3/50MIN Diagnoses Closed right hip fracture S72.001A Paroxysmal atrial fibrillation I48.0 Asthma J45.909 Vocal fold paralysis, right J38.01 Chronic kidney disease, stage 3a N18.31 Gastroesophageal reflux disease K21.9 Hypertension I10 Body mass index (BMI) of 19 or less in adult Z68.1 Hypothyroidism E03.9 Postoperative hypoxia R09.02; Z98.890
[2023-03-03] MEDS ORDERED: PREGABALIN 50 MG CAP PO PRN (15:49)
[2023-03-03] MEDS ORDERED: Nursing to Pharmacy Communication SCH (16:00)
[2023-03-03] MEDS ORDERED: ACETAMINOPHEN SUSP 1000 MG/31.2 ML UDP PO SCH (16:15)
[2023-03-03] MEDS ORDERED: ACETAMINOPHEN SUSP 500 MG/15.6 ML UDP PO SCH (16:15)
[2023-03-03] MEDS: ACETAMINOPHEN SUSP 160 MG/5 ML BTL PO SCH ×2 (16:51→20:01)
[2023-03-03] MEDS: ceFAZolin 1000MG 1,000 MG/7.5 ML SYR IV SCH (17:50)
[2023-03-03] MEDS: APIXABAN 2.5 MG TAB PO SCH (20:01)
[2023-03-04] MEDS: SODIUM CHLORIDE 0.9% 1,000 ML IV SCH (01:42)
[2023-03-04] MEDS: ceFAZolin 1000MG 1,000 MG/7.5 ML SYR IV SCH (01:42)
[2023-03-04] MEDS: LEVOTHYROXINE SODIUM 75 MCG TABLET PO SCH (05:30)
[2023-03-04] MEDS: LIOTHYRONINE SODIUM 5 MCG TAB PO SCH (05:30)
[2023-03-04 06:12] LABS: Basophils # (auto) 0.03 K/uL (0.00-0.20); Basophils % (auto) 0.2 %; Hemoglobin 10.7 g/dl (12.0-16.0); Immature Granulocytes # (auto) 0.05 K/uL (0.01-0.20); Immature Granulocytes % (auto) 0.4 %; Lymphocytes # (auto) 0.73 K/uL (1.20-3.40); Lymphocytes % (auto) 5.7 %; Mean Corpuscular Hemoglobin 30.3 pg (25.0-34.0); Mean Corpuscular Hgb Conc 33.4 g/dL (32.0-36.0); Mean Corpuscular Volume 90.7 fL (80.0-100.0); Mean Platelet Volume 10.6 fL (9.4-12.4); Monocytes # (auto) 1.23 K/uL (0.11-0.59); Monocytes % (auto) 9.6 %; Neutrophils # (auto) 10.78 K/uL (1.40-6.50); Neutrophils % (auto) 84.1 %; Platelet Count 174 K/uL (130-400); RDW Coefficient of Variation 15.8 % (11.5-14.5); RDW Standard Deviation 51.8 fL (36.4-46.3); Red Blood Count 3.53 M/uL (4.20-5.40); White Blood Count 12.82 K/ul (4.8-10.8)
[2023-03-04 06:25] LABS: Albumin Level 3.4 gm/dl (3.4-5.0); BUN Creatinine Ratio 37.3 (10-20); Calcium 8.5 mg/dl (8.6-10.3); Est GFR (African American) 96.2 ml/min; Phosphorus 2.3 mg/dl (2.5-4.9); Potassium 4.1 mmol/L (3.5-5.1)
[2023-03-04] MEDS: FLUTICASONE/VILANTEROL 200/25MCG 14 PUFFS/INHALER INH SCH (08:11)
[2023-03-04] MEDS: APIXABAN 2.5 MG TAB PO SCH ×2 (08:12→20:09)
[2023-03-04] MEDS: dilTIAZem HCL 180 MG CAPCR PO SCH (08:12)
[2023-03-04] MEDS: ACETAMINOPHEN SUSP 160 MG/5 ML BTL PO SCH ×3 (08:12→20:09)
[2023-03-04] MEDS: MAGNESIUM OXIDE 400 MG TAB PO SCH (08:13)
[2023-03-04] MEDS: VENLAFAXINE HCL XR 75 MG CAPXR PO SCH (08:13)
[2023-03-04] MEDS: SENNA 8.6 MG TAB PO SCH (08:13)
[2023-03-04] MEDS: FAMOTIDINE 20 MG in SYRINGE 3 ML IV SCH (08:16)
[2023-03-04] MEDS ORDERED: CHOLECALCIFEROL 125 MCG (5,000 UNITS) TAB PO SCH (09:00)
--- NOTE | 2023-03-04 09:22 | Orthopedic Progress Note ---
Date of Service March 04, 2023 Assessment & Plan (1) Closed right hip fracture: Plan: 87-year-old female status post right hip hemiarthroplasty postoperative day #1 -Pain control -Weightbearing as tolerated right lower extremity -PT/OT -DVT prophylaxis -Diet -Medical management -Patient is stable from orthopedic standpoint. Will sign off at this time. May follow-up as an outpatient in 10 to 14 days Admission and Anticipated Discharge Date Admission Date: March 01, 2023 Subjective Patient seen and examined, sitting comfortably at bedside eating breakfast. Pain well-controlled. No issues overnight. Physical Exam Constitutional: No acute distress, sitting in bedside Musculoskeletal: Right lower extremity Dressing clean dry and intact Thigh soft and compressible Lindsay s/spn/dpn/t/s Fires ta/ehl/gsc +dp/pt Results & Data Vital Signs (Past 12 Hours) Vital Signs Temp Pulse Resp BP Pulse Ox O2 Del Method O2 Flow Rate 03/04/23 07:11 98 Room Air 03/04/23 07:01 36.9 C 74 16 167/71 H 99 Nasal Cannula 1 03/04/23 03:20 36.5 C 77 16 173/78 H 100 Room Air 03/03/23 23:15 36.5 C 68 14 133/72 100 Nasal Cannula 2
--- NOTE | 2023-03-04 13:57 | Hospitalist Progress Note ---
Date of Service March 04, 2023 Assessment & Plan (1) Closed right hip fracture: Plan: Closed right hip fracture/status post ground-level fall- Consult orthopedic surgery - Unable to operate same day 03/09 pt took apixaban 03/01 - S/p Right hip hemiarthroplasty 03/03 - Resumed diet postoperatively and tolerating Pain control - Scheduled Tylenol; Dilaudid 0.25mg and 0.5mg; Home lyrica resumed postoperatively Zofran 4 mg IV every 6 hours as needed NSS + KCl 20 mEq at 80 mL/h Vit D: 30 and rechecked again to be 27 - PO replacement - will increase dose from 5,000units daily to 10,000units daily Patient on prolia outpatient Perez removed 03/04 - monitor for voids PT/OT eval 03/04 - rehab on discharge (2) Paroxysmal atrial fibrillation: Plan: Paroxysmal atrial fibrillation/hypertension -Pacemaker in place Last dosing of apixaban was after supper evening on 03/01, will continue postoperatively per ortho order Continue diltiazem CD100 80 mg daily (3) Asthma: Plan: Continue Advair Diskus/Breo elliptica DuoNebs every 2 hours as needed (4) Vocal fold paralysis, right: Plan: chronic, stable (5) Chronic kidney disease, stage 3a: Plan: CTM with daily labs (6) Gastroesophageal reflux disease: Plan: Continue Famotidine (7) Hypertension: Plan: cardizem as above (8) Body mass index (BMI) of 19 or less in adult: Plan: Underweight, BMI 15.9 kg/m*m likely exacerbated by patient vocal cord paralysis (9) Hypothyroidism: Plan: Continue home levothyroxine and liothyronine (10) Postoperative hypoxia: Plan: No supplemental O2 at baseline Encouraged incentive spirometry Weaned off 03/04 (11) Hypophosphatemia: Plan: Repleted (12) Anemia: Plan: Mild post-op anemia, CTM for now (13) Constipation: Plan: Given milk of magnesium 03/04 with successful BM following Plan Dispo: continued inpatient stay, PT/OT - rehab upon discharge DVT ppx: resumed apixaban per ortho orders Admission and Anticipated Discharge Date Admission Date: March 01, 2023 Subjective Denies any significant pain this morning. She was able to sit up in bed this morning and was doing some self grooming. Denies any dyspnea or chest pain. Perez still in place. Passing some gas but denies any bowel movement at time of my evaluation. She states her abdomen was feeling distended. Review of Systems Review of Systems: Per subjective Physical Exam Physical Exam: General: Well-appearing, NAD Cardiovascular: RRR, no M/R/G Pulmonary: CTAB Abdomen: Soft, NT mild abdominal distension and firmness, no guarding : Perez catheter in place draining clear yellow urine Extremities: RLE with overlying bandage anterolateral thigh without complications. No pedal edema Integumentary: No suspicious rash or lesion on exposed skin Neurologic: AAOx3, no focal deficits Psychiatric: Appropriate mood/affect Results & Data Results & Data Vital Signs (Past 12 Hours) Vital Signs Temp Pulse Resp BP BP Pulse Ox O2 Del Method 03/04/23 11:46 36.6 C 75 16 130/71 94 Room Air 03/04/23 07:11 98 Room Air 03/04/23 07:01 36.9 C 74 16 167/71 H 99 Nasal Cannula 03/04/23 03:20 36.5 C 77 16 173/78 H 100 Room Air O2 Flow Rate 03/04/23 11:46 03/04/23 07:11 03/04/23 07:01 1 03/04/23 03:20 Laboratory Results Reviewed CBC, BMP, phosphorus, and vitamin D levels. Notable for mild le ukocytosis 12.8, mild decrease in hemoglobin to 10.7, phosphorus low 2.3, and vitamin D low at 27 (was 30.32 days ago) PG Care Time/CCT Total # of Minutes Spent Total Time Spent with Patient: Total time spent is greater than 50% in coordination of care (as documented) at patient's floor/unit and/or counseling patient: Coding Level of Care Code 71327 SUB INP/OBS CARE 3/50MIN Diagnoses Closed right hip fracture S72.001A Paroxysmal atrial fibrillation I48.0 Asthma J45.909 Vocal fold paralysis, right J38.01 Chronic kidney disease, stage 3a N18.31 Gastroesophageal reflux disease K21.9 Hypertension I10 Body mass index (BMI) of 19 or less in adult Z68.1 Hypothyroidism E03.9 Postoperative hypoxia R09.02; Z98.890 Hypophosphatemia E83.39 Anemia D64.9 Constipation K59.00
[2023-03-04] MEDS ORDERED: POTASSIUM PHOS 3 MMOL/1 ML INFUSION IV STA (13:59)
[2023-03-04] MEDS ORDERED: POTASSIUM PHOSPHATE 15 MMOL in SODIUM CHLORIDE 0.9% 250 ML IV ONE (14:45)
[2023-03-05] MEDS: LEVOTHYROXINE SODIUM 75 MCG TABLET PO SCH (05:58)
[2023-03-05] MEDS: LIOTHYRONINE SODIUM 5 MCG TAB PO SCH (05:58)
[2023-03-05] MEDS: ACETAMINOPHEN SUSP 160 MG/5 ML BTL PO SCH (07:31)
[2023-03-05] MEDS: dilTIAZem HCL 180 MG CAPCR PO SCH (08:08)
[2023-03-05] MEDS: MAGNESIUM OXIDE 400 MG TAB PO SCH (08:08)
[2023-03-05] MEDS: APIXABAN 2.5 MG TAB PO SCH (08:08)
[2023-03-05] MEDS: VENLAFAXINE HCL XR 75 MG CAPXR PO SCH (08:08)
[2023-03-05] MEDS: FLUTICASONE/VILANTEROL 200/25MCG 14 PUFFS/INHALER INH SCH (08:08)
[2023-03-05] MEDS: SENNA 8.6 MG TAB PO SCH (08:08)
[2023-03-05] MEDS: FAMOTIDINE 20 MG in SYRINGE 3 ML IV SCH (08:12)
[2023-03-05] MEDS ORDERED: CHOLECALCIFEROL 125 MCG (5,000 UNITS) TAB PO SCH (09:00)
--- NOTE | 2023-03-05 10:46 | Discharge Summary ---
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 She presents to the emergency department after a ground-level fall in which she was rushing to get to someone else's Way, tripped and fell, and sustained immediate right hip pain. X-rays performed in the emergency department revealed a right hip fracture, and patient was referred for evaluation for admission to the medical service Principal Dx & Hospital Course #1 = Principal Diagnosis (1) Closed right hip fracture: Closed right hip fracture/status post ground-level fall- Consult orthopedic surgery - S/p Right hip hemiarthroplasty 03/[address] Ohara - Resumed diet postoperatively and tolerating Pain control : tylenol 1000mg q8H and Home lyrica resumed postoperatively Vit D: 30 and rechecked again to be 27 - PO replacement - 10,000units daily Patient on prolia outpatient - should continue PT/OT eval 03/04 - rehab on discharge, discharge to [facility] (2) Paroxysmal atrial fibrillation: Paroxysmal atrial fibrillation/hypertension -Pacemaker in place Continue Abixipan Continue diltiazem CD100 80 mg daily (3) Asthma: Continue Advair Diskus/Breo elliptica (4) Vocal fold paralysis, right: chronic, stable (5) Chronic kidney disease, stage 3a: stable (6) Gastroesophageal reflux disease: Continue home PPI (7) Hypertension: cardizem as above (8) Body mass index (BMI) of 19 or less in adult: Underweight, BMI 15.9 kg/m*m likely exacerbated by patient vocal cord paralysis (9) Hypothyroidism: Continue home levothyroxine and liothyronine (10) Anemia: Mild post-op anemia, CTM for now (11) Constipation: Given milk of magnesium 03/04 with successful BM following Plan Dispo: discharge to [facility] for rehab Discharge Exam General: NAD, VS as above Resp: normal respiratory effort, lungs clear to auscultation CV: RRR, no murmur, Abd: normal bowel sounds, non tender, no hepatosplenomegaly Extremities: Moves all extremities, dressing with shadowing, not saturated, dry and intact. no edema Neuro: A&O x3, Skin: intact, no lesions noted Updated Medication List Medication Instructions Recorded Confirmed Type fexofenadine 180 mg tablet 180 mg PO DAILY 06/19/18 03/01/23 History (Trixie Allergy) fluticasone 250 mcg-salmeterol 50 1 inh inhalation Q12H 06/19/18 03/01/23 History mcg/dose blistr powdr for inhalation (Advair Diskus) liothyronine 5 mcg tablet 5 mcg PO DAILYBB 06/19/18 03/01/23 History omeprazole 20 mg tablet,delayed 20 mg PO BID 06/19/18 03/01/23 History release potassium chloride 10 mEq 10 meq PO QAM 06/19/18 03/01/23 History tablet,extended release valacyclovir 500 mg tablet 500 mg PO QAM 06/19/18 03/01/23 History venlafaxine 75 mg capsule,extended 75 mg PO QAM 08/31/20 03/01/23 History release 24 hr apixaban 2.5 mg tablet (Eliquis) 2.5 mg PO BID 11/29/20 03/01/23 History atorvastatin 20 mg tablet 20 mg PO DAILY 06/17/22 03/01/23 History denosumab 60 mg/mL subcutaneous 60 mg subcut .[id number] 06/17/22 03/01/23 History syringe (Prolia) diltiazem HCl 180 mg 180 mg PO DAILY 06/17/22 03/01/23 History capsule,extended release 24 hr magnesium oxide 400 mg PO DAILY 06/17/22 03/01/23 History pregabalin 50 mg capsule 50 mg PO .NIGHTLY PRN leg pain 10/18/22 03/01/23 History albuterol sulfate 90 mcg/actuation 2 puff inhalation QID PRN wheeze 03/01/23 03/01/23 History aerosol inhaler levothyroxine 75 mcg tablet 75 mcg PO DAILYBB 03/01/23 03/01/23 History acetaminophen 160 mg/5 mL oral 1,000 mg (31.25 mL) PO TID 30 days 03/05/23 Rx suspension (Children's Tylenol) #2,812.5 mL cholecalciferol (vitamin D3) 125 10,000 unit PO QAM 30 days #60 tabs 03/05/23 Rx mcg (5,000 unit) tablet sennosides 8.6 mg tablet (Senokot) 8.6 mg PO QAM 10 days #10 tabs 03/05/23 Rx Hospital Stay Data Consultations 03/01/23 22:57 ED Decision to Admit Stat 03/02/23 00:53 Consult Orthopedic Surgery Routine Procedures Performed Operation Date: 03/03/23 08:50 Actual Procedures p Right Hip Hemiarthroplasty(Right) - Elijah Ohara, DO Diagnostic Imagining Performed 03/01/23 20:42 CT head/brain wo con Stat 03/02/23 14:36 CT hip RT wo con Urgent Pending Results Patient Have Any Pending Studies at Discharge: No Discharge Instructions Given to Patient (Per Discharging Provider) Ms. Siddiqui, You were hospitalized after falling and breaking your right hip. This was repaired by Dr. Ohara on 03/03. Your osteopetrosis likely contributed to this. You should continue receiving the Prolia injections. We also found that your Vitamin D level was low, and started you on oral Vitamin D supplementation. You should continue this until you are able to talk to your PCP about this. We did not change any of your home medications. Recommendations regarding your hip are below. You will need to follow up with orthopedics within 10-14 days. If you have any questions regarding the hip, your pain, or the dressing on the wound, contact the orthopedic team. If you are having new chest pain or shortness of breath please return to the ER. It was our pleasure taking care of you, Jumana Mckinley PA-C Total Time Total Time Spent Total Time Spent (In Minutes): Time spend day of discharge 35 minutes including direct patient care, medication reconciliation, documentation, review of labs and images, and coordination of care. Coding Level of Care Code 18253 INP/OBS DISCH >30 MIN Diagnoses Closed right hip fracture S72.001A Paroxysmal atrial fibrillation I48.0 Asthma J45.909 Vocal fold paralysis, right J38.01 Chronic kidney disease, stage 3a N18.31 Gastroesophageal reflux disease K21.9 Hypertension I10 Body mass index (BMI) of 19 or less in adult Z68.1 Hypothyroidism E03.9 Anemia D64.9 Constipation K59.00
== END 2023-03-05 12:59 | DRG 522 ==
LOC: ED 19:44 → SUATTDRO 22:52 → 3E 22:52

== ENCOUNTER 2024-11-15 07:11 | Inpatient (IN) ==
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
[2024-11-15] MEDS: ALBUT/IPRATROP 3MG/0.5MG NEB 3 ML VIAL NEB STA (07:46)
[2024-11-15 07:57] LABS: Hematocrit (blood only) 37.0 % (37.0-47.0); Hemoglobin 12.2 g/dl (12.0-16.0); Immature Granulocytes # (auto) 0.02 K/uL (0.01-0.20); Immature Granulocytes % (auto) 0.3 %; Mean Corpuscular Hemoglobin 31.3 pg (25.0-34.0); Mean Corpuscular Volume 94.9 fL (80.0-100.0); Platelet Count 188 K/uL (130-400); RDW Standard Deviation 49.4 fL (36.4-46.3); Red Blood Count 3.90 M/uL (4.20-5.40); White Blood Count 7.98 K/ul (4.8-10.8)
[2024-11-15 08:00] LABS: Base Excess VBG 2.6 mEq/L; HCO3 VBG 27 mmol/L; Oxygen Saturation VBG 94.9 %; PCO2 VBG 41 mmHg (38-50); PO2 VBG 79 mmHg; pH VBG 7.43 (7.36-7.41)
[2024-11-15 08:14] LABS: Alanine Aminotransferase 21.0 U/L (7-52); Albumin Globulin Ratio 1.7 (0.9-2); Albumin Level 4.4 gm/dl (3.4-5.0); Alkaline Phosphatase 158.0 U/L (34-104); Anion Gap 8.0 (3-11); Bilirubin,Total 0.4 mg/dl (0.2-1.0); Blood Urea Nitrogen 26.0 mg/dl (6-23); Calcium 9.3 mg/dl (8.6-10.3); Carbon Dioxide 27.0 mmol/L (21-32); Chloride 104.0 mmol/L (98-107); Creatinine Clr Calc Pharmacy 35.7 ml/min; Globulin 2.6 gm/dl (2.5-4.0); Glucose 109.0 mg/dl (70-99(Fasting)); Magnesium 2.3 mg/dl (1.7-2.4); Potassium 4.2 mmol/L (3.5-5.1); Sodium 139.0 mmol/L (136-145); Total Protein 7.0 gm/dl (6.0-8.3)
[2024-11-15] MEDS: OPTIRAY 320 100ml IV ONE (08:22)
--- NOTE | 2024-11-15 08:29 | XRay Report ---
Clinical History: Dyspnea Technique: 2 frontal views of the chest were obtained Findings: There are no confluent pulmonary infiltrates. The heart size is within normal limits. No pleural effusion or pneumothorax is seen. There is suspected emphysema No fracture is noted. There is a left chest wall pacemaker device. There is a cervical fusion. There is thoracic and lumbar scoliosis and degenerative disc disease Impression: 1. Emphysema 2. No definite acute process Electronically signed by Cristiano James 11-15-2024 08:29 AM
--- NOTE | 2024-11-15 08:39 | CT Scan Report ---
Clinical history: Swollen throat Technique: Axial computed tomography images were obtained of the neck after the administration of intravenous contrast Findings: The aryepiglottic folds appear thickened and asymmetric The salivary glands appear unremarkable. No adenopathy is seen. No foreign body is evident No tonsillar enlargement is seen. There is no sign of epiglottitis or prevertebral inflammation. The thyroid gland appears normal. The right jugular vein is patent. The left jugular vein is diminutive or absent. No definite stenosis is seen of the carotid arteries. There is mild mucosal thickening of the maxillary, ethmoid, and sphenoid sinuses. The mastoid air cells appear clear. There is degenerative disc disease and osteoarthritis of the cervical spine. There is anterior fusion of C5-C7. The lung apices appear unremarkable Impression: 1. Apparent thickening and asymmetry of the aryepiglottic folds. This is indeterminate in nature but could be due to edema from infection 2. No other definite airway abnormality 3. 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 It could be congenitally absent or chronically thrombosed and diminutive 4. Chronic sinusitis Electronically signed by Cristiano James 11-15-2024 08:39 AM
[2024-11-15 09:27] LABS: INR 1.1 (0.9-1.1); Partial Thromboplastin Time 28 Seconds (21-31); Prothrombin Time 11.3 Seconds (9.0-12.0)
[2024-11-15] MEDS: RACEPINEPHRINE 2.25% NEBU SOLN 0.5 ML VIAL NEB STA (09:36)
[2024-11-15] MEDS ORDERED: ALBUT/IPRATROP 3MG/0.5MG NEB 3 ML VIAL NEB PRN (14:20)
[2024-11-15] MEDS ORDERED: MAGNESIUM HYDROXIDE SUSP 30 ML UDC PO PRN (14:20)
[2024-11-15] MEDS ORDERED: POLYETHYLENE (MIRALAX) 17 GM PACK PO PRN (14:20)
[2024-11-15] MEDS ORDERED: EPINEPHrine INJ 1 MG/ML AMP IM PRN (14:20)
[2024-11-15] MEDS ORDERED: ONDANSETRON INJ 2 MG/ML 2 ML VIAL IV PRN (14:20)
[2024-11-15] MEDS ORDERED: diphenhydrAMINE 50 MG/ML VIAL IV PRN (14:20)
[2024-11-15] MEDS ORDERED: ACETAMINOPHEN 325 MG TAB PO PRN (14:20)
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
[2024-11-15] MEDS: cefTRIAXone SODIUM 1,000 MG/50 ML BAG IV SCH (14:45)
[2024-11-15] MEDS ORDERED: PREGABALIN 50 MG CAP PO PRN (15:01)
[2024-11-15] MEDS ORDERED: ALBUTEROL HFA 8 GM INHALER INH PRN (15:01)
[2024-11-15] MEDS ORDERED: ARTIFICIAL TEARS OP PRN (15:26)
[2024-11-15 17:15] LABS: Chlamydia pneumoniae PCR Not Detected (NotDetected); Coronavirus 229E PCR Not Detected (NotDetected); Coronavirus CoV-2 (COVID19)PCR Not Detected (NotDetected); Coronavirus HKU1 PCR Not Detected (NotDetected); Coronavirus NL63 PCR Not Detected (NotDetected); Coronavirus OC43PCR Not Detected (NotDetected); Human Metapneumovirus PCR Not Detected (NotDetected); Parainfluenza Virus 1 PCR Not Detected (NotDetected); Parainfluenza Virus 2 PCR Not Detected (NotDetected); Parainfluenza Virus 3 PCR Not Detected (NotDetected); Parainfluenza Virus 4 PCR Not Detected (NotDetected); Respiratory Syncytial VirusPCR Not Detected (NotDetected); Rhinovirus/Enterovirus PCR Not Detected (NotDetected)
--- NOTE | 2024-11-15 19:16 | Billing Data ---
Date of Service November 15, 2024 Coding Level of Care Code 64565 INT INP/OBS CARE
[2024-11-15] MEDS: CEROVITE ADV FORMULA TAB PO SCH (20:10)
[2024-11-15] MEDS: APIXABAN 2.5 MG TAB PO SCH (20:10)
[2024-11-15] MEDS: GABAPENTIN 100 MG CAP PO SCH (20:11)
[2024-11-16] MEDS: LIOTHYRONINE SODIUM 5 MCG TAB PO SCH (05:50)
[2024-11-16] MEDS: LEVOTHYROXINE SODIUM 75 MCG TABLET PO SCH (05:50)
[2024-11-16 07:00] LABS: Hematocrit (blood only) 35.3 % (37.0-47.0); Hemoglobin 12.4 g/dl (12.0-16.0); Immature Granulocytes # (auto) 0.04 K/uL (0.01-0.20); Immature Granulocytes % (auto) 0.4 %; Mean Corpuscular Hemoglobin 32.6 pg (25.0-34.0); Mean Corpuscular Volume 92.9 fL (80.0-100.0); Platelet Count 196 K/uL (130-400); RDW Standard Deviation 48.7 fL (36.4-46.3); Red Blood Count 3.80 M/uL (4.20-5.40); White Blood Count 9.24 K/ul (4.8-10.8)
--- NOTE | 2024-11-16 07:11 | Electrocardiogram Report ---
Test Reason : Blood Pressure : */* mmHG Vent. Rate : 83 BPM Atrial Rate : 83 BPM P-R Int : 178 ms QRS Dur : 170 ms QT Int : 446 ms P-R-T Axes : * 0 215 degrees QTcB Int : 524 ms Atrial-sensed ventricular-paced rhythm with occasional Premature ventricular complexes Abnormal ECG When compared with ECG of 01-Mar-2023 20:15, Premature ventricular complexes are now Present Confirmed by Adonay Judge ([id number]) on 11/16/2024 7:11:19 AM Referred By: Confirmed By: Adonay Judge
--- NOTE | 2024-11-16 07:12 | Electrocardiogram Report ---
Test Reason : Blood Pressure : */* mmHG Vent. Rate : 104 BPM Atrial Rate : 104 BPM P-R Int : 154 ms QRS Dur : 168 ms QT Int : 412 ms P-R-T Axes : 63 -84 94 degrees QTcB Int : 541 ms Atrial-sensed ventricular-paced rhythm Abnormal ECG When compared with ECG of 15-Nov-2024 07:20, Premature ventricular complexes are no longer Present Vent. rate has increased by 21 bpm Confirmed by Adonay Judge ([id number]) on 11/16/2024 7:11:47 AM Referred By: REFERRED SELF Confirmed By: Adonay Judge
[2024-11-16 07:27] LABS: Alanine Aminotransferase 20.0 U/L (7-52); Albumin Globulin Ratio 1.8 (0.9-2); Albumin Level 4.1 gm/dl (3.4-5.0); Alkaline Phosphatase 133.0 U/L (34-104); Anion Gap 7.0 (3-11); Bilirubin,Total 0.4 mg/dl (0.2-1.0); Blood Urea Nitrogen 22.0 mg/dl (6-23); Calcium 9.1 mg/dl (8.6-10.3); Carbon Dioxide 31.0 mmol/L (21-32); Chloride 104.0 mmol/L (98-107); Creatinine Clr Calc Pharmacy 36.7 ml/min; Globulin 2.3 gm/dl (2.5-4.0); Glucose 127.0 mg/dl (70-99(Fasting)); Potassium 4.1 mmol/L (3.5-5.1); Sodium 142.0 mmol/L (136-145); Total Protein 6.4 gm/dl (6.0-8.3)
[2024-11-16] MEDS: ATORVASTATIN 20 MG TAB PO SCH (07:44)
[2024-11-16] MEDS: FERROUS SULFATE 325 MG TAB PO SCH (07:44)
[2024-11-16] MEDS: CHOLECALCIFEROL 125 MCG (5,000 UNITS) TAB PO SCH (07:44)
[2024-11-16] MEDS: MAGNESIUM OXIDE 400 MG TAB PO SCH (07:45)
[2024-11-16] MEDS: MIRTAZAPINE TAB 15 MG TAB PO SCH (07:45)
[2024-11-16] MEDS: VENLAFAXINE HCL XR 75 MG CAPXR PO SCH (07:46)
[2024-11-16] MEDS: VITAMIN B COMPLEX TAB PO SCH (07:46)
--- NOTE | 2024-11-16 07:51 | Hospitalist Progress Note ---
Date of Service November 16, 2024 Assessment & Plan (1) Inspiratory stridor: Plan: Patient is an 89 y/o F (2) Acute dyspnea: (3) Mild intermittent asthma: (4) Dysphonia: (5) Vocal fold paralysis, right: Plan Patient is an 89 y/o F PMHx mild intermittent asthma, vocal cord dysfunction, CKD IIIa, atrial fibrillation on Eliquis, previous CVA, LBBB, HTN, hypothyroidism, and GERD who presented to the ED this morning with complaint of shortness of breath with feeling of throat swelling. While in ED, treated with DuoNebs, racemic epinephrine, and IV methylprednisolone. CT soft tissue neck completed showing apparent thickening and asymmetry of aryepiglottic folds possible edema from infection. No other definite airway abnormally noted on imaging. CBC and CMP wnl. Patient is admitted for evaluation of shortness of breath in the setting of allergic reaction/anaphylaxis vs epiglottitis. #shortness of breath/throat tightness could be 2/2 allergic reaction/anaphylaxis however there doesn't seem to be a known trigger at this time. Patient denies changes to diet, soaps, detergents, fragrances, medications or other environmental causes. Has not had previously anaphylactic reaction before ; however could also be 2/[address] soft tissue findings - continue methylprednisolone 16 mg po bid - BioFire negative, MRSA nares negative - continue ceftriaxone 1g q24h for total 7 days - benadryl 25 mg IV q12 prn and epinephrine 0.5 mg IM prn for severe allergic symptoms - continue full liquid diet, can continue to discuss advancing diet with patient as tolerated; denies choking or coughing with oral intake, however patient is more comfort with diet as is for now. #a. fib/LBBB/HTN/hx CVA - EKG completed in ED without concern - continue home eliquis 2.5 mg bid - continue diltiazem 180mg po daily - continue telemetry #NSVT - some episodes of NSVT overnight into this morning, however pt is asymptomatic and hemodynamically stable. EKGs with atrial-sensed ventricular paced rhythm, no longer with PVCs which were seen on admission EKG. - last echo completed 02/2020, will repeat, TTE ordered - has DDD defibrillator, interrogation w/o defibrillator activity - continue diltiazem as above - continue tele ; EKG as needed for chest pain #depression/memory changes - continue venlafaxine and mirtazapine #hypothyroidism - continue synthroid 75 mcg and liothyronine 5mg #GERD - continue home protonix 20 mg bid DVT - eliquis as above Dispo - will continue patient on med/tele until tomorrow morning to ensure resolution of her dyspnea and stridor. Also want to ensure remains asymptomatic given suspected NSVT and echo is pending. Patient has remained stable since admission, however want to make sure this continues before before. She is expected to return back home, could consider PT/OT evaluation, however I do not think this is needed at this point and patient currently feels safe to go back home on discharge. Plan to continue with steroid taper on discharge and to finished abx course for a total treatment duration of 7 days. Admission and Anticipated Discharge Date Admission Date: November 15, 2024 Supervising Physician Co-Signing Physician Notes I personally examined the patient and verified all garcia points of history and exam, discussed case, and agree with decision making with Dr Hill Feeling much better. Breathing easier. No real conversational stridor. No shortness of breath. Vitals noted, in general she is awake and alert pleasant no distress. HEENT normocephalic atraumatic mucous membranes moist. Breathing shows lungs clear without rales rhonchi or wheezes, listening to her neck is very mildly harsh but not nearly so much as yesterday, almost normal. Stridor/epiglottic swelling - fortunately no airway compromise, no indication for intubation or transfer on admission, and she has gotten better since.. Given her history of "being erendira rgic to everything" and given that she does not have infectious signs or symptoms otherwise, it does seem to most likely be some form of allergic reaction; at the same time, given that her epiglottis is a bit swollen on CT Treating with ceftriaxone to cover (MRSA nares negative)she is getting much better. Given the delicate nature of epiglottic swelling and how risky it can be for airway compromise, even though she is looking a lot better, we will continue hospital treatment at least into tomorrow. And then as long as she is continuing to look better anticipate we can get her home tomorrow. As an incidental issue, we were informed of appearance of ventricular tachycardia on monitorin review of the monitor strip her QRS basically looks the same as the QRS on her EKG (baseline widened)and interestingly while I was at the nurses station, watching her monitor, her QRS does not change, but once she is doing anything that gets her heart rate above 100, the monitor starts to alarm for ventricular tachycardia. She was absolutely asymptomatic. Discussed this with patient. She is nonplussed. otherwise as above. Follow into tomorrow, anticipate home in a.m. on a tapering dose of steroids and a short course of cefdinir. Subjective Patient seen and examined at bedside. No overnight issues. No acute concerns. Having few episodes of vtach, however patient is hemodynamically stable and asymptomatic while at bedside. Feeling well this morning, better than when she arrived yesterday. Breatihng has improved. No more apparent conversational dyspnea or inspiratory stridor. Tolerating full liquid diet, no coughing or choking. Discussed with patient about advancing diet, however she states feeling more comfortable with the full liquid diet until symptoms resolve completely. Has not been OOB much, other than to ambulate to restroom. Denies chest pain, palpitations, headache, N/V/abdominal pain. Review of Systems Review of Systems: as per hpi Physical Exam Constitutional: more well-appearing today, compared to yesterday's exam. No acute or obvious distress. Respiratory: normal respiratory effort conversational dyspnea much improved from yesterday. normal respiratory effort no inspiratory stridor or transmitted upper airway sounds on auscultation CTA BL Cardiovascular: Rate/Rhythm: + tachycardic and + irregularly irregular Extremities: no edema Gastrointestinal (Abdomen): Inspection/Auscultation: abdomen not distended Percussion/Palpation: abdomen soft; abdomen nontender, no guarding and abdomen not rigid Musculoskeletal: Head/Neck/Chest: normocephalic and head atraumatic Extremities: extremities normal to inspection Skin: no rashes, warm and dry Neurologic: no focal neurological deficits Psychiatric: A+Ox3, euthymic affect Results & Data Results & Data Vital Signs (Past 12 Hours) Vital Signs Temp Pulse Pulse Resp BP Pulse Ox O2 Del Method 11/16/24 07:14 66 11/16/24 04:09 36.8 C 66 16 142/78 H 95 Room Air 11/15/24 22:38 36.5 C 88 18 140/88 94 Room Air 11/15/24 22:21 89 11/15/24 20:04 Room Air Resident Activity Tracking Resident Involvement: Resident Care Provided Care Provided: Adult Hospital Medicine
[2024-11-16] MEDS: SENNA 8.6 MG TAB PO SCH (09:19)
[2024-11-16] MEDS: POTASSIUM CHLORIDE 10 MEQ TABCR PO SCH (09:19)
--- NOTE | 2024-11-16 17:28 | Billing Data ---
Date of Service November 16, 2024 Coding Level of Care Code 22222 SUB INP/OBS CARE MIN
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
--- NOTE | 2024-11-16 19:04 | XCELERA ---
[id number]
[2024-11-16] MEDS: ACETAMINOPHEN 500 MG TAB PO PRN (21:02)
[2024-11-17 06:29] LABS: Hematocrit (blood only) 37.4 % (37.0-47.0); Hemoglobin 12.5 g/dl (12.0-16.0); Immature Granulocytes # (auto) 0.06 K/uL (0.01-0.20); Immature Granulocytes % (auto) 0.5 %; Mean Corpuscular Hemoglobin 31.6 pg (25.0-34.0); Mean Corpuscular Volume 94.4 fL (80.0-100.0); Platelet Count 208 K/uL (130-400); RDW Standard Deviation 49.8 fL (36.4-46.3); Red Blood Count 3.96 M/uL (4.20-5.40); White Blood Count 11.85 K/ul (4.8-10.8)
--- NOTE | 2024-11-17 06:52 | Hospitalist Progress Note ---
Date of Service November 17, 2024 Assessment & Plan (1) Inspiratory stridor: (2) Acute dyspnea: (3) Mild intermittent asthma: (4) Dysphonia: (5) Vocal fold paralysis, right: Plan Patient is an 89 y/o F PMHx mild intermittent asthma, vocal cord dysfunction, CKD IIIa, atrial fibrillation on Eliquis, previous CVA, LBBB, HTN, hypothyroidism, and GERD who presented to the ED this morning with complaint of shortness of breath with feeling of throat swelling. While in ED, treated with DuoNebs, racemic epinephrine, and IV methylprednisolone. CT soft tissue neck completed showing apparent thickening and asymmetry of aryepiglottic folds possible edema from infection. No other definite airway abnormally noted on imaging. CBC and CMP wnl. Patient is admitted for evaluation of shortness of breath in the setting of allergic reaction/anaphylaxis vs epiglottitis. #shortness of breath/throat tightness could be 2/2 allergic reaction/anaphylaxis however there doesn't seem to be a known trigger at this time. Patient denies changes to diet, soaps, detergents, fragrances, medications or other environmental causes. Has not had previously anaphylactic reaction before ; however could also be 2/[address] soft tissue findings - d/c methylprednisolone, continue with Medrol Dose pack after d/c - BioFire negative, MRSA nares negative - continue ceftriaxone 1g q24h for total 7 days - benadryl 25 mg IV q12 prn and epinephrine 0.5 mg IM prn for severe allergic symptoms - advanced from liquid diet to heart healthy diet; denies choking or coughing with oral intake - speech therapy evaluation pending #a. fib/LBBB/HTN/hx CVA - EKG completed in ED without concern - continue home eliquis 2.5 mg bid - continue diltiazem 180mg po daily - continue telemetry #NSVT - some episodes of NSVT overnight into this morning, however pt is asymptomatic and hemodynamically stable. EKGs with atrial-sensed ventricular paced rhythm, no longer with PVCs which were seen on admission EKG. - last echo completed 02/2020, will repeat, TTE ordered - has DDD defibrillator, interrogation w/o defibrillator activity - continue diltiazem as above - continue tele; EKG as needed for chest pain #depression/memory changes - continue venlafaxine and mirtazapine #hypothyroidism - continue synthroid 75 mcg and liothyronine 5mg #GERD - continue home protonix 20 mg bid DVT - eliquis as above Dispo - anticipate d/c after PT/OT evaluation, plan to continue with Medrol Dose pack and DuoNebs on discharge and d/c abx Admission and Anticipated Discharge Date Admission Date: November 15, 2024 Supervising Physician Co-Signing Physician Notes Attending Attestation & Progress Note: Pt seen/examined, chart reviewed, care plan d/w resident physician Dr Amber Mobley. I agree w/ the garcia components of her progress note documentation. Patient feeling well today. She reports that on 11/14/24 she had eaten dinner about 5/6pm. She did not have any stridor or dyspnea in the hours after eating. Went to bed feeling fine. She was awoken sometime in the middle of the night with the difficulty breathing prompting the ER visit. When she came to ER records show she received racemic epi, albuterol, and steroids. Soon after these meds she felt better. She never had rash or hives. VSS, afebrile gen - NAD, pleasant, dysphonic speech neck - no lymph nodes, no anterior neck swelling HENT - MMM, no lesions, posterior pharynx clear heart - RRR, s1 s2 lungs - CTA b/l abd - soft NT ext - no edema, pulses 2+ b/l feet A/P: 1. episode of acute respiratory distress/stridor at ER presentation - resolved quickly 2. unilateral vocal cord paralysis 3. abnormal neck CT -I don't think this was an allergic reaction -could this have been an episode of vocal cord dyskinesia (VCD)? -spells from VCD can be dramatic & severe, mimicking asthma exacerbations, etc. -Dr Hair Qiu had seen the patient not long after ER presentation and her upper airway was normal on his exam -I don't think this is a bacterial process - can d/c abx -I would do a short course of steroids to be on safe side 4. patient reports dysphagia with eating -- will ask speech therapy to see in c onsult Andreas Parham MD Subjective 89 yo F with PMHx of mild intermittent asthma, vocal cord dysfunction, CKD 3A, afib on Eliquis, CVA hx who is here for SOB with throat swelling. Patient is doing well this morning. Denies SOB, dyspnea, CP, palpitations, N/V. States she walked around with nurse yesterday and did well, no symptoms. Review of Systems Review of Systems: All systems reviewed & are unremarkable except as noted in HPI & below Physical Exam Constitutional: no acute distress Respiratory: normal respiratory effort, lungs clear to auscultation Cardiovascular: RRR, no murmur, no edema Gastrointestinal (Abdomen): normal bowel sounds, soft, nontender, no hepatosplenomegaly Skin: no rashes, warm and dry Psychiatric: A+Ox3, euthymic affect Results & Data Results & Data Vital Signs (Past 12 Hours) Vital Signs Temp Pulse Pulse Resp BP Pulse Ox O2 Del Method 11/17/24 03:28 36.4 C L 82 20 158/81 H 96 Room Air 11/17/24 01:12 157/80 H 11/16/24 23:19 36.5 C 82 18 183/81 H 95 Room Air 11/16/24 22:00 69 11/16/24 19:47 36.8 C 82 20 149/81 H 96 Room Air Resident Activity Tracking Resident Involvement: Resident Care Provided Care Provided: Adult Hospital Medicine
[2024-11-17 06:55] LABS: Anion Gap 8.0 (3-11); Blood Urea Nitrogen 22.0 mg/dl (6-23); Calcium 8.9 mg/dl (8.6-10.3); Carbon Dioxide 29.0 mmol/L (21-32); Chloride 102.0 mmol/L (98-107); Creatinine Clr Calc Pharmacy 37.8 ml/min; Glucose 130.0 mg/dl (70-99(Fasting)); Potassium 4.5 mmol/L (3.5-5.1); Sodium 139.0 mmol/L (136-145)
--- NOTE | 2024-11-17 09:58 | Discharge Summary ---
Date of Service November 17, 2024 Admission HPI Per Admitting Provider Ellie Siddiqui is an 89 y/o F PMHx mild intermittent asthma, vocal cord dysfunction, CKD IIIa, atrial fibrillation on Eliquis, previous CVA, LBBB, HTN, hypothyroidism, and GERD who presented to the ED this morning with complaint of shortness of breath. Patient woke up this morning around 0400 and felt a swelling and tightening in her throat. This feeling was associated with shortness of breath, without chest tightness or discomfort. During this episode, patient also denies lip or eyelid swelling. Had a salad for dinner the night before, without any foods that were new or different to her. Also denies any new changes to soaps, detergents, or fragrances in the house. Notes that she has been having worsening dyspnea on exertion over the past few months but this morning her SOB was at rest. 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 She states that the symptoms she is experiencing is different that what she experiences at baseline with her R TVF immobility. Denies previous history of anaphylaxis or angioedema. Denies palpitations, headache, dizziness, N/V/abdominal pain. Has been eating and drinking normally. Reports feeling completely fine yesterday before the symptom onset this morning. No recent cold or flu-like symptoms. Denies any recent sick contacts. No use of alcohol, tobacco, or recreational drugs. She is a resident at [facility] and lives at home with her . Uses a walker at baseline, however notes changes in exercise/activity tolerance over the past few months. 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 While in ED, treated with DuoNebs, racemic epinephrine, and IV methylprednisolone. CT soft tissue neck completed showing apparent thickening and asymmetry of aryepiglottic folds possible edema from infection. No other definite airway abnormally noted on imaging. CBC and CMP wnl. Patient is being admitted for shortness of breath in the setting of allergic reaction/anaphylaxis vs epiglottitis. Admission Exam Per Admitting Provider Constitutional: well-appearing in no acute distress. A&O x3. Responding appropriately in clear, complete sentences, however there is notable conversational dyspnea, which patient reports is different from her baseline dysphonia. ENMT: no swelling of lips or eyelids no facial flushing or diaphoresis Respiratory: transmitted upper airway sounds bilaterally on auscultation, however without wheezes, crackles, rhonchi no apparent respiratory distress or increased work of breathing. No accessory muscle usage Cardiovascular: Rate/Rhythm: + tachycardic and + irregularly irregular Extremities: no edema Gastrointestinal (Abdomen): Inspection/Auscultation: abdomen not distended Percussion/Palpation: abdomen soft; abdomen nontender, no guarding and abdomen not rigid Musculoskeletal: Head/Neck/Chest: normocephalic and head atraumatic Extremities: extremities normal to inspection Skin: no rashes, warm and dry Neurologic: no focal neurological deficits Principal Diagnosis SOB/throat tightness Discharge Exam Constitutional no acute distress ENMT Mouth: no oropharynx abnormality and no oral mucosal abnormality Respiratory normal respiratory effort, lungs clear to auscultation Cardiovascular RRR, no murmur, no edema Gastrointestinal (Abdomen) normal bowel sounds, soft, nontender, no hepatosplenomegaly Skin no rashes, warm and dry Psychiatric A+Ox3, euthymic affect Discharge Data Allergies Allergy/AdvReac Type Severity Reaction Status Date / Time Penicillins Allergy Intermediate RASH Verified 09/15/24 15:44 Sulfa (Sulfonamide Allergy Intermediate Hives Verified 09/15/24 15:44 Antibiotics) latex Allergy Mild Rash Verified 09/15/24 15:44 codeine AdvReac Severe VOMITTING Verified 09/15/24 15:44 COFFEE GROUNDS ephedrine AdvReac Intermediate INCREASES Verified 09/15/24 15:44 HEART RATE Consultations 11/15/24 10:05 ED Decision to Admit Stat Ordered Studies 11/15/24 07:34 CT soft tissue neck w con Stat Hospital Course (1) Inspiratory stridor: (2) Acute dyspnea: (3) Mild intermittent asthma: (4) Dysphonia: (5) Vocal fold paralysis, right: Plan Patient is an 89 y/o F PMHx mild intermittent asthma, vocal cord dysfunction, CKD IIIa, atrial fibrillation on Eliquis, previous CVA, LBBB, HTN, hypothyroidism, and GERD who presented to the ED with complaint of shortness of breath with feeling of throat swelling. While in ED, treated with DuoNebs, racemic epinephrine, and IV methylprednisolone. CT soft tissue neck completed showing apparent thickening and asymmetry of aryepiglottic folds possible edema from infection. No other definite airway abnormally noted on imaging. CBC and CMP wnl. Patient is admitted for evaluation of shortness of breath in the setting of allergic reaction/anaphylaxis vs epiglottitis. #shortness of breath/throat tightness could be 2/2 allergic reaction/anaphylaxis/aspiration episode however there doesn't seem to be a known trigger at this time. Patient denies changes to diet, soaps, detergents, fragrances, medications or other environmental causes. Has not had previously anaphylactic reaction before ; however could also be 2/[address] soft tissue findings - d/c methylprednisolone, continue with Medrol Dose Pack at home for 5 days - BioFire negative, MRSA nares negative - d/c ceftriaxone 1g q24h for total 7 days, low suspicion for - benadryl 25 mg IV q12 prn and epinephrine 0.5 mg IM prn for severe allergic symptoms - previously on full liquid diet, advanced to regular heart healthy diet and patient tolerated well #a. fib/LBBB/HTN/hx CVA - EKG completed in ED without concern - continue home eliquis 2.5 mg bid - continue diltiazem 180mg po daily - continue telemetry #NSVT - some episodes of NSVT overnight into this morning, however pt is asymptomatic and hemodynamically stable. EKGs with atrial-sensed ventricular paced rhythm, no longer with PVCs which were seen on admission EKG. - last echo completed 02/2020, will repeat, TTE ordered - has DDD defibrillator, interrogation w/o defibrillator activity - continue diltiazem as above - continue tele ; EKG as needed for chest pain #depression/memory changes - continue venlafaxine and mirtazapine #hypothyroidism - continue synthroid 75 mcg and liothyronine 5mg #GERD - continue home protonix 20 mg bid DVT - eliquis as above Dispo - will continue patient on med/tele until tomorrow morning to ensure resolution of her dyspnea and stridor. Also want to ensure remains asymptomatic given suspected NSVT and echo is pending. Patient has remained stable since admission, however want to make sure this continues before before. She is expected to return back home, could consider PT/OT evaluation, however I do not think this is needed at this point and patient currently feels safe to go back home on discharge. Plan to continue with steroid taper on discharge and to finished abx course for a total treatment duration of 7 days. Discharge Plan Discharge Items Reason For Visit: SHORTNESS OF BREATH Condition on Discharge: Good Follow-up/Referrals: Carlos Ba MD [Primary Care Provider] - Medications and DC Order Prescriptions: No Action acetaminophen 500 mg tablet 500 mg PO Q6H PRN clindamycin HCl 300 mg capsule 300 mg PO BID gabapentin 100 mg capsule 100 mg PO TID loteprednol etabonate [Lotemax] 0.5 % drops,suspension 1 drp ophthalmic (eye) BID mirtazapine 7.5 mg tablet 7.5 mg PO DAILY PreserVision AREDS 4,296 mcg-226 mg-90 mg capsule 1 cap PO BID Prolia 60 mg/mL syringe subcut carboxymethylcellulose sodium [Refresh Plus] 0.5 % dropperette 1 drp ophthalmic (eye) BID triamcinolone acetonide 0.1 % cream 1 applic topical BID cholecalciferol (vitamin D3) 125 mcg (5,000 unit) capsule 125 mcg PO DAILY vitamin B complex Capsule 1 cap PO DAILY ofloxacin 0.3 % drops 10 drp otic (ear) BID pregabalin 50 mg capsule 50 mg PO .NIGHTLY PRN (Reason: leg pain) Eliquis 2.5 mg tablet 2.5 mg PO BID ferrous sulfate 325 mg (65 mg iron) tablet 325 mg PO DAILY sennosides [Senokot] 8.6 mg tablet 8.6 mg PO DAILY albuterol sulfate [Ventolin HFA] 90 mcg/actuation HFA aerosol inhaler 2 puff inhalation Q4H PRN (Reason: shortness of breath or wheezing) Qty: 8.5 3RF potassium chloride 10 mEq Tablet Extended Release 10 meq PO QAM fexofenadine [Trixie Allergy] 180 mg Tablet 180 mg PO DAILY valacyclovir 500 mg Tablet 500 mg PO QAM Rx Instructions: Take 1 hour before breakfast liothyronine 5 mcg Tablet 5 mcg PO DAILYBB omeprazole 20 mg Tablet,Delayed Release (Dr/Ec) 20 mg PO BID venlafaxine 75 mg capsule,extended release 24hr 75 mg PO QAM atorvastatin 20 mg tablet 20 mg PO DAILY diltiazem HCl 180 mg capsule,extended release 24hr 180 mg PO DAILY Prolia 60 mg/mL Syringe 60 mg SUBCUT .[id number] Rx Instructions: november 26 magnesium oxide 400 mg magnesium Tablet 400 mg PO DAILY levothyroxine 75 mcg tablet 75 mcg PO DAILYBB Admission Data Admit Date/Time: 11/15/24 11:17 Attending Provider: Andreas Parham Admit Provider: Bhumika Hill Primary Care Provider: Carlos Ba Other Providers: Param Perkins
--- NOTE | 2024-11-17 20:43 | Billing Data ---
Date of Service November 17, 2024 Coding Level of Care Code 66144 SUB INP/OBS CARE MIN
[2024-11-18 02:22] VITALS: RESP 18
[2024-11-18 06:39] LABS: Hematocrit (blood only) 40.1 % (37.0-47.0); Hemoglobin 14.2 g/dl (12.0-16.0); Immature Granulocytes # (auto) 0.03 K/uL (0.01-0.20); Immature Granulocytes % (auto) 0.3 %; Mean Corpuscular Hemoglobin 32.8 pg (25.0-34.0); Mean Corpuscular Volume 92.6 fL (80.0-100.0); Platelet Count 226 K/uL (130-400); RDW Standard Deviation 49.1 fL (36.4-46.3); Red Blood Count 4.33 M/uL (4.20-5.40); White Blood Count 10.28 K/ul (4.8-10.8)
[2024-11-18 07:13] LABS: Anion Gap 9.0 (3-11); Blood Urea Nitrogen 37.0 mg/dl (6-23); Calcium 9.7 mg/dl (8.6-10.3); Carbon Dioxide 29.0 mmol/L (21-32); Chloride 99.0 mmol/L (98-107); Creatinine Clr Calc Pharmacy 30.3 ml/min; Glucose 133.0 mg/dl (70-99(Fasting)); Potassium 4.6 mmol/L (3.5-5.1); Sodium 137.0 mmol/L (136-145)
[2024-11-18 07:45] VITALS: TEMP 97.3
--- NOTE | 2024-11-18 08:08 | Hospitalist Progress Note ---
Date of Service November 18, 2024 Assessment & Plan Admission and Anticipated Discharge Date Admission Date: November 15, 2024 Results & Data Results & Data Vital Signs (Past 12 Hours) Vital Signs Temp Pulse Pulse Resp BP Pulse Ox O2 Del Method 11/18/24 07:44 36.3 C L 68 18 182/93 H 98 Room Air 11/18/24 06:51 91 H 11/18/24 02:21 36.5 C 62 18 142/86 H 95 Room Air 11/17/24 22:32 36.5 C 70 16 157/78 H 98 Room Air 11/17/24 21:51 64 Resident Activity Tracking Resident Involvement: Resident Care Provided Care Provided: Adult Hospital Medicine
--- NOTE | 2024-11-18 08:13 | Discharge Summary ---
Date of Service November 18, 2024 Admission HPI Per Admitting Provider Ellie Siddiqui is an 89 y/o F PMHx mild intermittent asthma, vocal cord dysfunction, CKD IIIa, atrial fibrillation on Eliquis, previous CVA, LBBB, HTN, hypothyroidism, and GERD who presented to the ED this morning with complaint of shortness of breath. Patient woke up this morning around 0400 and felt a swelling and tightening in her throat. This feeling was associated with shortness of breath, without chest tightness or discomfort. During this episode, patient also denies lip or eyelid swelling. Had a salad for dinner the night before, without any foods that were new or different to her. Also denies any new changes to soaps, detergents, or fragrances in the house. Notes that she has been having worsening dyspnea on exertion over the past few months but this morning her SOB was at rest. 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 She states that the symptoms she is experiencing is different that what she experiences at baseline with her R TVF immobility. Denies previous history of anaphylaxis or angioedema. Denies palpitations, headache, dizziness, N/V/abdominal pain. Has been eating and drinking normally. Reports feeling completely fine yesterday before the symptom onset this morning. No recent cold or flu-like symptoms. Denies any recent sick contacts. No use of alcohol, tobacco, or recreational drugs. She is a resident at [facility] and lives at home with her . Uses a walker at baseline, however notes changes in exercise/activity tolerance over the past few months. 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 While in ED, treated with DuoNebs, racemic epinephrine, and IV methylprednisolone. CT soft tissue neck completed showing apparent thickening and asymmetry of aryepiglottic folds possible edema from infection. No other definite airway abnormally noted on imaging. CBC and CMP wnl. Patient is being admitted for shortness of breath in the setting of allergic reaction/anaphylaxis vs epiglottitis. Admission Exam Per Admitting Provider Constitutional: well-appearing in no acute distress. A&O x3. Responding appropriately in clear, complete sentences, however there is notable conversational dyspnea, which patient reports is different from her baseline dysphonia. ENMT: no swelling of lips or eyelids no facial flushing or diaphoresis Respiratory: transmitted upper airway sounds bilaterally on auscultation, however without wheezes, crackles, rhonchi no apparent respiratory distress or increased work of breathing. No accessory muscle usage Cardiovascular: Rate/Rhythm: + tachycardic and + irregularly irregular Extremities: no edema Gastrointestinal (Abdomen): Inspection/Auscultation: abdomen not distended Percussion/Palpation: abdomen soft; abdomen nontender, no guarding and abdomen not rigid Musculoskeletal: Head/Neck/Chest: normocephalic and head atraumatic Extremities: extremities normal to inspection Skin: no rashes, warm and dry Neurologic: no focal neurological deficits Principal Diagnosis SOB Discharge Exam Constitutional WD/WN, vitals as above Respiratory normal respiratory effort, lungs clear to auscultation Cardiovascular RRR, no murmur, no edema Gastrointestinal (Abdomen) normal bowel sounds, soft, nontender, no hepatosplenomegaly Skin no rashes, warm and dry Psychiatric A+Ox3, euthymic affect Discharge Data Allergies Allergy/AdvReac Type Severity Reaction Status Date / Time Penicillins Allergy Intermediate RASH Verified 09/15/24 15:44 Sulfa (Sulfonamide Allergy Intermediate Hives Verified 09/15/24 15:44 Antibiotics) latex Allergy Mild Rash Verified 09/15/24 15:44 codeine AdvReac Severe VOMITTING Verified 09/15/24 15:44 COFFEE GROUNDS ephedrine AdvReac Intermediate INCREASES Verified 09/15/24 15:44 HEART RATE Consultations 11/15/24 10:05 ED Decision to Admit Stat Ordered Studies 11/15/24 07:34 CT soft tissue neck w con Stat Hospital Course (1) Acute dyspnea: (2) Vocal fold paralysis, right: (3) GERD (gastroesophageal reflux disease): (4) Hypothyroidism: (5) Hypertension: (6) Mild intermittent asthma: Plan Patient is an 89 y/o F PMHx mild intermittent asthma, vocal cord dysfunction, CKD IIIa, atrial fibrillation on Eliquis, previous CVA, LBBB, HTN, hypothyroidism, and GERD who presented to the ED this morning with complaint of shortness of breath with feeling of throat swelling. While in ED, treated with DuoNebs, racemic epinephrine, and IV methylprednisolone. CT soft tissue neck completed showing apparent thickening and asymmetry of aryepiglottic folds possible edema from infection. No other definite airway abnormally noted on imaging. CBC and CMP wnl. Patient is admitted for evaluation of shortness of breath in the setting of allergic reaction/anaphylaxis vs vocal cord dyskinesia vs. epiglottitis. #shortness of breath/throat tightness could be 2/2 allergic reaction/anaphylaxis however there doesn't seem to be a known trigger at this time. Patient denies changes to diet, soaps, detergents, fragrances, medications or other environmental causes. Has not had previously anaphylactic reaction before ; however could also be 2/[address] soft tissue findings - d/c methylprednisolone, continue with Medrol Dose pack after d/c - BioFire negative, MRSA nares negative - ceftriaxone 1g q24h, d/c - benadryl 25 mg IV q12 prn and epinephrine 0.5 mg IM prn for severe allergic symptoms - advanced from liquid diet to heart healthy diet; denies choking or coughing with oral intake - speech therapy: mild oropharyngeal dysphagia and severe esophageal dysmotility, recommended easy to chew diet with thin liquids - recommended use of humidifier at home to help with assisting with air and moisture around vocal cords #a. fib/LBBB/HTN/hx CVA - EKG completed in ED without concern - continue home eliquis 2.5 mg bid - continue diltiazem 180mg po daily - continue telemetry #NSVT - some episodes of NSVT overnight into this morning, however pt is asymptomatic and hemodynamically stable. EKGs with atrial-sensed ventricular paced rhythm, no longer with PVCs which were seen on admission EKG. - last echo completed 02/2020, will repeat, TTE ordered - has DDD defibrillator, interrogation w/o defibrillator activity - continue diltiazem as above - continue tele; EKG as needed for chest pain #depression/memory changes - continue venlafaxine and mirtazapine #hypothyroidism - continue synthroid 75 mcg and liothyronine 5mg #GERD - continue home protonix 20 mg bid DVT - eliquis as above Dispo - d/c to snf facility, plan to continue with Medrol Dose pack and DuoNebs on discharge and d/c abx Total Time Total Time Spent Total Time Spent (In Minutes): per attending attestation Discharge Plan Discharge Items Patient Disposition: Transfer [facility] Reason For Visit: SHORTNESS OF BREATH Discharge Diagnosis: SOB Condition on Discharge: Good Activity: Per Instructions section Non-emergency contact: Primary Care Provider Call non-emergency contact if: your symptoms worsen, your pain is not controlled and you have a fever Follow-up/Referrals: Jarocho Romo MD [Physician] - (unilateral vocal cord paralysis; vocal cord dyskinesia (VCD) Dr. Romo office will call [place] with appointment. ) Carlos Ba MD [Primary Care Provider] - Diet: Heart Healthy Addtl Attending Provider Instructions: You were recently admitted to the hospital due to SOB and throat tightness. During your admission, your CT showed thickening and asymmetry of the area around your vocal cords as well as some swelling which may be indicative of some infection. We believe this may be related to either an allergic reaction, vocal cord dyskinesia or inflammation of your epiglottis, however we are unsure of the exact cause of your symptoms. During your time here, we have given you steroids, IM epinephrine, and antibiotics like Ceftriaxone to help control your symptoms. You have recovered well. Upon discharge, you will not need antibiotics as we do not suspect an infectious epiglottis, however we will prescribe a Medrol Dose pack for 5 days to help with general inflammation and edema of the airway. We will also prescribe you albuterol sulfate, solution (for nebulization), along with nebulizer kit to help you out with your rescue breathing treatments for better medication administration. Please continue all your home medications including Eliquis, Diltiazem, Protonix, Venlafaxine, Mirtazapine, Synthroid, Atorvastatin, Liothyronine, Levothyroxine, etc. as you were previously instructed. We have made no changes to your home medications. Additionally, a humidifier at home may help with moisturizing the air and vocal cords. Pending Studies at Discharge: No Stand-Alone Forms: My [facility] Skilled Items Patient informed of condition?: Yes DNR: Yes Discharge Level of Care: Skilled Communicable Disease: No Discharge Prognosis: Stable Lines: None Urinary Catheter: No Medications and DC Order Prescriptions: New methylprednisolone [Medrol (Gamal)] 4 mg tablets,dose pack 4 mg PO DAILY Qty: 21 0RF Rx Instructions: 6 x 4 mg, Day 1 5 x 4 mg, Day 2 4 x 4 mg, Day 3 3 x 4 mg, Day 4 2 x 4 mg, Day 5 1 x 4 mg, Day 6 albuterol sulfate 1.25 mg/3 mL solution for nebulization 1.25 mg inhalation Q6H PRN (Reason: bronchospasm) Qty: 90 0RF (DME) nebulizer accessories Kit See Rx Instructions .Route Qty: 1 0RF Rx Instructions: As directed Continued acetaminophen 500 mg tablet 500 mg PO Q6H PRN clindamycin HCl 300 mg capsule 300 mg PO BID gabapentin 100 mg capsule 100 mg PO TID loteprednol etabonate [Lotemax] 0.5 % drops,suspension 1 drp ophthalmic (eye) BID mirtazapine 7.5 mg tablet 7.5 mg PO DAILY PreserVision AREDS 4,296 mcg-226 mg-90 mg capsule 1 cap PO BID Prolia 60 mg/mL syringe subcut carboxymethylcellulose sodium [Refresh Plus] 0.5 % dropperette 1 drp ophthalmic (eye) BID triamcinolone acetonide 0.1 % cream 1 applic topical BID cholecalciferol (vitamin D3) 125 mcg (5,000 unit) capsule 125 mcg PO DAILY vitamin B complex Capsule 1 cap PO DAILY ofloxacin 0.3 % drops 10 drp otic (ear) BID pregabalin 50 mg capsule 50 mg PO .NIGHTLY PRN (Reason: leg pain) Eliquis 2.5 mg tablet 2.5 mg PO BID ferrous sulfate 325 mg (65 mg iron) tablet 325 mg PO DAILY sennosides [Senokot] 8.6 mg tablet 8.6 mg PO DAILY albuterol sulfate [Ventolin HFA] 90 mcg/actuation HFA aerosol inhaler 2 puff inhalation Q4H PRN (Reason: shortness of breath or wheezing) Qty: 8.5 3RF potassium chloride 10 mEq Tablet Extended Release 10 meq PO QAM fexofenadine [Trixie Allergy] 180 mg Tablet 180 mg PO DAILY valacyclovir 500 mg Tablet 500 mg PO QAM Rx Instructions: Take 1 hour before breakfast liothyronine 5 mcg Tablet 5 mcg PO DAILYBB omeprazole 20 mg Tablet,Delayed Release (Dr/Ec) 20 mg PO BID venlafaxine 75 mg capsule,extended release 24hr 75 mg PO QAM atorvastatin 20 mg tablet 20 mg PO DAILY diltiazem HCl 180 mg capsule,extended release 24hr 180 mg PO DAILY Prolia 60 mg/mL Syringe 60 mg SUBCUT .[id number] Rx Instructions: november 26 magnesium oxide 400 mg magnesium Tablet 400 mg PO DAILY levothyroxine 75 mcg tablet 75 mcg PO DAILYBB Discharge Orders: Discharge Order (Routine); Ordered 11/18/24 Ordered By: Amber Mobley Admission Data Admit Date/Time: 11/15/24 11:17 Attending Provider: Andreas Parham Admit Provider: Bhumika Hill Primary Care Provider: Carlos Ba Other Providers: Param Perkins Other Interventions: Discharge Summary Assessment (RN) Last Done: 11/18/24 12:56 Resident Activity Tracking Resident Involvement: Resident Care Provided Care Provided: Adult Hospital Medicine
[2024-11-18] MEDS: INFLUENZA VACC TS2025-26(65y+)/PF (IIV3) 0.5mL Syr IM ONE (09:29)
[2024-11-18 11:12] VITALS: BP 132/77; PULSE 89; O2SAT 96
== END 2024-11-18 14:58 | disposition home or self-care (01) | DRG 204 ==
LOC: ED 07:11 → 2S 11:17 → SUATTDRO 11:17 → 2S 14:31